=== PATIENT | male | born 1985 | race Caucasian/White ===

== ENCOUNTER 2017-08-15 08:17 | Emergency (ER) | payer MEDICAID, SELFPAY ==
[2017-08-15 08:18] VITALS: BP 127/61; PULSE 87; RESP 17; TEMP 36.6; O2SAT 98; BMI 22.0
--- NOTE | 2017-08-15 08:29 | RAD_ITS ---
STUDY: X-RAY - LEFT SHOULDER REASON FOR EXAM: Male, 31 years old. Pain TECHNIQUE: 4 view(s) of the shoulder. COMPARISON: None. FINDINGS: Normal glenohumeral articulation. Normal acromioclavicular joint. Normal acromion. Normal humeral head and visualized proximal humerus. The soft tissue structures are unremarkable. Normal visualized pulmonary apex. RAD/Shoulder min 2 Views IMPRESSION: Normal x-ray examination of the shoulder. Electronically Signed: Gabino Mancilla DO at 9:01 EDT , Service support ,
[2017-08-15] MEDS: Ketorolac 60 MG/2 ML Vial IM (08:34)
--- NOTE | 2017-08-15 08:35 | ED.VISSUMM ---
- ER Visit Summary Date of Service: 08/15/17 Chief Complaint: Left shoulder pain History of Present Illness: The patient is a 31 M presenting with left shoulder pain. He states that his shoulder has been hurting for the past week. He states yesterday while mowing the lawn he felt a pop in his shoulder. He states he did not come to the hospital because he was drinking at the time. Denies other injury. He also has an itchy rash bilateral upper extremities. He was outside yesterday. Denies other complaints. Physical Examination: Vitals are stable. Patient is afebrile. Alert no acute distress. HEENT exam is unremarkable. Neck is supple. Lungs are clear and equal bilaterally. Heart is regular rate and rhythm. Abdomen is soft nontender nondistended. Extremities left shoulder diffuse tenderness with active full range of motion Skin is multiple raised erythematous lesions consistent with insect bites bilateral upper extremities No focal neurologic deficit. Remainder of exam is unremarkable. Emergency Department Course and Treatment: Patient was given Toradol IM. Left shoulder xray shows no acute process. He is advised to take Benadryl for itching and given a short course of prednisone. Advised to follow-up with Dr. Almeida champion of sustainable design for no doc. Advised return to ED for worsening complaints. Disposition: Discharge home Impression: Left shoulder pain, rash This note was generated with [employer] dictation software. It may contain incorrect words, spelling, and punctuation that were not noted in review of the chart prior to signing ED Disposition - Plan for ED Patient: Chief Complaint: Upper Extremity Injury Instructions: ED Sprain Shoulder Prescriptions: Prednisone 20 mg PO DAILY #5 tablet Referrals: Juan Jose Almeida III, MD [STAFF PHYSICIAN] - Care Physician,No Primary [Primary Care Provider] -
--- NOTE | 2017-08-15 08:39 | ED.DCSUM_ITS ---
- ER Visit Summary Date of Service: 08/15/17 Chief Complaint: Left shoulder pain History of Present Illness: The patient is a 31 M presenting with left shoulder pain. He states that his shoulder has been hurting for the past week. He states yesterday while mowing the lawn he felt a pop in his shoulder. He states he did not come to the hospital because he was drinking at the time. Denies other injury. He also has an itchy rash bilateral upper extremities. He was outside yesterday. Denies other complaints. Physical Examination: Vitals are stable. Patient is afebrile. Alert no acute distress. HEENT exam is unremarkable. Neck is supple. Lungs are clear and equal bilaterally. Heart is regular rate and rhythm. Abdomen is soft nontender nondistended. Extremities left shoulder diffuse tenderness with active full range of motion Skin is multiple raised erythematous lesions consistent with insect bites bilateral upper extremities No focal neurologic deficit. Remainder of exam is unremarkable. Emergency Department Course and Treatment: Patient was given Toradol IM. Left shoulder xray shows no acute process. He is advised to take Benadryl for itching and given a short course of prednisone. Advised to follow-up with Dr. Almeida metal numerical control programmer for no doc. Advised return to ED for worsening complaints. Disposition: Discharge home Impression: Left shoulder pain, rash This note was generated with [email or web address] dictation software. It may contain incorrect words, spelling, and punctuation that were not noted in review of the chart prior to signing ED Disposition - Plan for ED Patient: Chief Complaint: Upper Extremity Injury Instructions: ED Sprain Shoulder Prescriptions: Prednisone 20 mg PO DAILY #5 tablet Referrals: Juan Jose Almeida III, MD [STAFF PHYSICIAN] - Care Physician,No Primary [Primary Care Provider] -
--- NOTE | 2017-08-15 09:17 | ED.DEP ---
ED Disposition - Plan for ED Patient: Chief Complaint: Upper Extremity Injury Instructions: ED Sprain Shoulder Prescriptions: Prednisone 20 mg PO DAILY #5 tablet Referrals: Care Physician,No Primary [Primary Care Provider] - Juan Jose Almeida III, MD [STAFF PHYSICIAN] -
== END 2017-08-15 09:28 | disposition home or self-care (01) ==
PROVIDERS: Emergency Provider Emergency Medicine
DX: M25.512 Pain in left shoulder (principal); R21 Rash and other nonspecific skin eruption; Z72.0 Tobacco use; Z79.51 Long term (current) use of inhaled steroids
CPT/HCPCS: 73030; 96372; 99282

== ENCOUNTER 2017-09-15 08:07 | Emergency (ER) | payer MEDICAID, SELFPAY ==
[2017-09-15 08:08] VITALS: BP 140/94; PULSE 79; RESP 20; TEMP 36.8; O2SAT 100; BMI 21.8
--- NOTE | 2017-09-15 08:25 | CT_ITS ---
STUDY: CT ABDOMEN AND PELVIS WITH CONTRAST REASON FOR EXAM: Male, 31 years old. GI BLEED, BLACK TAR STOOL, SEVERE HEMMORHOIDS. RADIATION DOSAGE (If Supplied By Facility): CTDIvol = ( 11.22 ) mGy, DLP = ( 530.25 ) mGycm TECHNIQUE: Transaxial images were obtained from the dome of the diaphragm to the symphysis pubis with oral contrast. 100 ml of Isovue 300 contrast was administered. Sagittal and coronal images were reconstructed. Individualized dose optimization techniques were used for this CT. COMPARISON: February 02, 2016 FINDINGS: The visualized lung bases are unremarkable. The visualized portions of the heart are within normal limits. Normal liver. Normal gallbladder and extrahepatic biliary system. Normal spleen. Normal pancreas. Normal bilateral adrenal glands. Normal right kidney. Normal left kidney. Normal visualized stomach. Normal small intestine. Normal colon. The appendix is visualized and appears normal. Normal abdominal aorta. Normal inferior vena cava. Normal retroperitoneum. Normal urinary bladder. Normal abdominal wall. Normal osseous structures. CT/Abdomen/Pelvis WITH Contrast IMPRESSION: Normal enhanced CT of the abdomen and pelvis. Electronically Signed: Nia Castro MD at 11:02 EDT Tel , Service support ,
[2017-09-15 08:39] VITALS: BP 148/93; PULSE 68; RESP 18; O2SAT 100
[2017-09-15] MEDS: Ondansetron 4 MG/2 ML Vial IV (08:40)
[2017-09-15] MEDS: Morphine 4 MG/ML Syringe IV (08:42)
[2017-09-15 08:48] LABS: Absolute Lymphocyte Count 2.23 X10^3/ul (0.83-4.51); Absolute Neutrophil Count 3.8 X10^3/uL (2.0-7.7); Basophil# 0.05 X10^3/uL; Basophil% 0.7 % (0-1); Eosinophil# 0.29 X10^3/uL; Eosinophils% 4.1 % (0-5); Hematocrit 44.3 % (40-54); Hemoglobin 15.6 g/dl (13.0-16.5); Lymphocyte # 2.23 X10^3/ul (4.0); Lymphocyte % 31.3 % (19-41); Mean Corp Hgb Conc 35.2 g/gl (32-36); Mean Corpuscular Hgb 31.6 pg (27.0-32.0); Mean Corpuscular Volume 89.9 fL (80-94); Mean Platelet Vol. 10.3 fl (6.2-12.0); Monocyte% 9.8 % (0-10); Neutrophil # 3.83 X10^3/uL (2.7-7.7); Neutrophil % 53.7 % (47-70); POSITIVE COUNT NO; POSITIVE DIFFERENTIAL NO; POSITIVE MORPHOLOGY NO; Platelet Count 253 K/mm3 (150-450); RBC Distribution Width SD 38.9 fl (35.1-43.9); Red Blood Count 4.93 M/mm3 (4.6-6.2); White Blood Count 7.1 K/mm3 (4.4-11.0)
--- NOTE | 2017-09-15 08:51 | ED.RN ---
PT C/O HEAVINESS IN CHEST THAT IS NOT RESOLVING. DR BALDWIN NOTIFIED. DR BALDWIN TO THE BEDSIDE. CALLED FOR EKG
[2017-09-15 08:52] VITALS: BP 141/92; PULSE 56; RESP 15; O2SAT 98
[2017-09-15 08:54] LABS: International Normalized Ratio 0.9; Prothrombin Time (Protime)PT. 12.4 SECONDS (11.7-14.9)
[2017-09-15 09:03] LABS: ALB/GLOB Ratio 1.1 RATIO (0.9-2.4); AST(SGOT) 21 U/L (15-37); Alanine Aminotransfer ALT/SGPT 39 U/L (16-61); Albumin, Serum 3.9 g/dL (3.2-5.0); Alkaline Phosphatase 91 U/L (45-117); Anion Gap 10 (5-15); BUN 11 mg/dL (7-18); BUN/Creat Ratio 11.7 RATIO (10-20); Calcium,Total 9.3 mg/dL (8.5-10.1); Chloride 107 mmol/L (98-107); Creatinine, Serum 0.94 mg/dL (0.70-1.30); EST Glomerular Filtration Rate 99 mL/min (>60); Est Glom Filt Rate - Afr Amer 120 mL/min (>60); Globulin 3.4 g/dL (2.2-4.2); Glucose 99 mg/dL (74-106); Potassium 4.3 mmol/L (3.5-5.1); Protein, Total 7.3 g/dL (6.4-8.2); Sodium Level 142 mmol/L (136-145)
--- NOTE | 2017-09-15 09:03 | ED.DCSUM_ITS ---
- ER Visit Summary Date of Service: 09/15/17 Chief Complaint: Hemorrhoids History of Present Illness: The patient is a 31 M with a long-standing history of severe external and internal hemorrhoids. He states he has had these for at least 15 years. He complains of chronic diarrhea, chronic right lower quadrant pain. He states his pain is usually worse before bowel movement. He reports dark red blood per rectum associated with his hemorrhoids. He reports nausea. However he states that over the last several days his pain has become much more severe he is also had increased bleeding. He reports that he has intermittently had dark tarry stools. He states that the last episode of this was a couple of weeks ago and has not happened since that time however. He has been seen in the emergency department for his hemorrhoids but has never followed up as an outpatient. He has never seen a reforestation worker or general surgeon. He does not have a primary care physician currently. He states that his pain is so bad that he has to drink myself to sleep. Physical Examination: Afebrile vitals unremarkable he is afebrile with a normal heart rate Moist mucous membranes Heart regular rate and rhythm Lungs clear Abdomen soft nondistended he does have right lower quadrant abdominal tenderness without guarding or rebound Severe external hemorrhoids are noted, he does have a pad with some bright red blood on it he was not able to tolerate digital rectal exam Test Results: EKG shows normal sinus rhythm at a rate of 53. CBC CMP INR all normal. CT of the abdomen and pelvis is normal. Emergency Department Course and Treatment: The patient reported right lower quadrant abdominal pain as well as intermittent melanotic stools. Although he has not had any report of melena for 2 weeks I explained that I would not expect the symptoms from hemorrhoids and hemorrhoids would not explain right lower quadrant pain. Therefore CT of the abdomen and pelvis was obtained which is normal. Patient was treated with IV morphine and Zofran. Patient is resting comfortably on reevaluation. He will be referred to general surgery for outpatient follow-up for his hemorrhoids. He was given a prescription for Anusol. He understands return for new or worsening symptoms and was instructed on specific signs and symptoms to monitor for. Patient discharged home in good condition. Treatment Plan: [] Disposition: Discharge Impression: Right lower quadrant abdominal pain Hemorrhoids This note was generated with [employer] software. It may contain incorrect words, spelling, and punctuation that were not noted in review of the chart prior to signing ED Disposition - Plan for ED Patient: Chief Complaint: GI Bleed Referrals: Care Physician,No Primary [Primary Care Provider] -
--- NOTE | 2017-09-15 09:03 | EKG12_ITS ---
Test Reason : GI BLEED Blood Pressure : / mmHG Vent. Rate : 053 BPM Atrial Rate : 053 BPM P-R Int : 130 ms QRS Dur : 108 ms QT Int : 434 ms P-R-T Axes : 051 020 056 degrees QTc Int : 407 ms Sinus bradycardia Otherwise normal ECG Confirmed by LUKAS PALACIOS, MONIK ([id number]), newspaper photo editor LAUREN LAWTON ([id number]) on 09/16/2017 4:54:05 PM Referred By: DENNY Confirmed By:MONIK GAYTAN MD
[2017-09-15 10:51] VITALS: BP 123/79; PULSE 57; RESP 18; O2SAT 98
--- NOTE | 2017-09-15 11:17 | ED.DEP ---
ED Disposition - Plan for ED Patient: Chief Complaint: GI Bleed Instructions: ED Hemorrhoids, ED Hematochezia Stable, ED Abdominal Pain Unkn Cause Prescriptions: Hydrocortisone [Anusol Hc] 25 mg RECTAL BID PRN #20 suppos. Referrals: Care Physician,No Primary [Primary Care Provider] - Rupali Preciado MD [STAFF PHYSICIAN] -
[2017-09-15 11:36] VITALS: BP 124/79; PULSE 67; RESP 14; O2SAT 100
--- NOTE | 2017-09-15 11:37 | ED.RN ---
THIS NURSE ATTEMPTED TO REVIEW D/C INSTRUCTIONS WITH PT. PT BEGAN YELLING AT THIS NURSE. PT STATES YOU MAY WELL THROW THAT PRESCRIPTION AWAY. I HAVE PAIN. HOW THE HELL DO YOU EXPECT ME TO GIVE MYSELF A SUPPOSITORY. THIS NURSE ATTEMPTED TO EXPLAIN TO THE PT THAT HE NEEDS TO FOLLOW UP WITH THE SURGEON SUGGESTED. PT CONTINUES TO YELL AT THIS NURSE. THE VISITOR IN THE ROOM STATES I WILL TAKE THE INSTRUCTIONS AND PRESCRIPTIONS. PT ENCOURAGED TO FOLLOWUP WITH THIS ISSUE IT CANNOT BE FIXED IN THE EMERGENCY DEPARTMENT. PT IV D/C. IV CATHETER INTACT. PT TOLERATED WELL. PT DENIES FURTHER NEEDS OR QUESTIONS AT THIS TIME. PT AMBULATES FROM ROOM ON OWN WITHOUT ASSISTANCE FROM STAFF
== END 2017-09-15 11:40 | disposition home or self-care (01) ==
LOC: ED 08:25
PROVIDERS: Emergency Provider Emergency Medicine
DX: K64.4 Residual hemorrhoidal skin tags (principal); R10.31 Right lower quadrant pain
CPT/HCPCS: 74177; 80053; 85025; 85610; 93005; 96374; 96375; 99283; Q9967; A4216; J2405

== ENCOUNTER 2018-03-29 08:47 | Emergency (ER) | payer MEDICAID, SELFPAY ==
[2018-03-29 08:47] VITALS: BP 140/82; PULSE 78; RESP 18; TEMP 36.6; O2SAT 99; BMI 20.3
--- NOTE | 2018-03-29 09:24 | RAD_ITS ---
STUDY: X-RAY CHEST REASON FOR EXAM: Male, 32 years old. Cough and congestion with shortness of breath. History of asthma. TECHNIQUE: Frontal and lateral views of the chest. COMPARISON: None. FINDINGS: The lungs are clear and expanded. There is no demonstrated pleural abnormality. Normal size heart. Normal mediastinum and chhaya. Normal visualized pulmonary arteries. Normal visualized aortic arch and descending thoracic aorta. Normal visualized thoracic spine. Normal visualized ribs, clavicles, and shoulders. There is no demonstrated abnormality of the visualized soft tissue structures of the upper abdomen. RAD/Chest PA and Lateral IMPRESSION: No active or acute cardiopulmonary disease. Electronically Signed: German Calle MD at 11:06 EST , Service support ,
[2018-03-29] MEDS: predniSONE 20 MG Tablet 60 MG PO (09:33)
[2018-03-29] MEDS: Ipratropium/Albuterol Sulfate 3 ML AMPUL.NEB INHALATION (09:34)
[2018-03-29] MEDS: Albuterol 2.5 MG/3 ML VIAL.NEB. INHALATION ×2 (09:34)
[2018-03-29 09:35] VITALS: PULSE 83; RESP 18
--- NOTE | 2018-03-29 10:14 | ED.VISSUMM ---
- ER Visit Summary Date of Service: 03/29/18 Chief Complaint: Shortness of breath History of Present Illness: The patient is a 32 M who states he has history of asthma for the past 2 weeks has had nausea vomiting as well as a cough. States he feels like he has been hit by a train. He notes chills rhinorrhea myalgias headache cough no sputum production. He also notes that he has left lower anterior chest is painful with coughing. Physical Examination: Afebrile vital signs are stable Gen: Well-nourished well-developed Head: Normocephalic atraumatic Eyes: Perrl EOMI ENT: TMs clear nasal congestion moist mucous membranes Neck: Supple no lymphadenopathy no JVD nontender CVS: Regular rate rhythm no murmurs normal S1-S2 Respiratory: No distress rhonchi that improved with cough. Expiratory wheeze. Chest nontender Abdomen: Soft nontender nondistended normal bowel sounds no masses Back: Nontender Extremity: Nontender no edema Skin: Normal color no rash Neuro: alert orientated ?3 CN II-XII intact normal strength sensation reflexes gait cerebellar Psych: Normal affect normal mood Test Results: Chest x-ray showed no infiltrative changes Emergency Department Course and Treatment: Patient received breathing treatment. He will need to be started on prednisone. His albuterol aerosols are I will write for those. He has an MDI. Impression: 1. Acute asthmatic bronchitis This note was generated with [employer] dictation software. It may contain incorrect words, spelling, and punctuation that were not noted in review of the chart prior to signing ED Disposition - Plan for ED Patient: Disposition: Home or Assisted Living Chief Complaint: Asthma Instructions: ED Bronchitis Asthmatic Prescriptions: Albuterol Aerosols [Ventolin Aerosols] 2.5 mg INHALATION Q4H PRN #25 vial Prednisone [Deltasone] 40 mg PO DAILY #10 tab Referrals: Cristin Scott MD [STAFF PHYSICIAN] -
[2018-03-29 11:23] VITALS: BP 138/78; PULSE 82; RESP 18; TEMP 36.6; O2SAT 96
[2018-03-29 11:37] VITALS: BP 140/78; PULSE 82; RESP 18; O2SAT 97
== END 2018-03-29 11:38 | disposition home or self-care (01) ==
PROVIDERS: Emergency Provider Emergency Medicine
DX: J45.909 Unspecified asthma, uncomplicated (principal); G40.909 Epilepsy, unspecified, not intractable, without status epilepticus; F20.9 Schizophrenia, unspecified; Z79.899 Other long term (current) drug therapy
CPT/HCPCS: 71046; 94640; 99283

== ENCOUNTER 2018-09-11 08:24 | Emergency (ER) | payer MEDICAID, SELFPAY ==
[2018-09-11 08:25] VITALS: BP 128/94; PULSE 81; RESP 18; TEMP 36.6; O2SAT 99; BMI 22.4
--- NOTE | 2018-09-11 09:03 | ED.DCSUM_ITS ---
History of Present Illness Chief Complaint: GI Bleed Informant: Patient, Family Onset: Days Context: Gradual Onset Timing: Continuous Quality: burning Location: epigastric Current Severity: Severe Maximum Severity: Severe Worsened by: food Relieved by: nothing Associated Symptoms: BRB per rectum, history of hemorrhoids Narrative: Patient presents to the emergency department with about a week epigastric abdominal pain that he describes as burning. It is nonradiating. He has been nauseated without vomiting. He has been having bright red blood per rectum but states his hemorrhoids are actively bleeding he has not had any melena. He has not had any vomiting. He has no fevers chills lightheadedness or dizziness. No chest pain or shortness of breath. He does drink 6-12 beers per day chronically. He has a history of epilepsy. He has never had a withdrawal seizure from alcohol. He has had hemorrhoids chronically and has been referred to surgery multiple times but has never followed up to be seen by surgery. Denies constipation. Prior similar symptoms: Yes Recent Illness/Hospitalization: No Capacity - Capacity Assessment Tool Can the patient make a choice & communicate that choice?: Yes Can the patient understand benefits, risks and alternatives?: Yes Can the patient make a logical, rational choice?: Yes Past Medical History - Allergies and Home Meds Allergies/Adverse Reactions: Allergies clindamycin Allergy (Verified 09/11/18 08:30) Rash morphine Allergy (Verified 09/11/18 08:30) Unknown BRADYCARDIA Penicillins Allergy (Verified 09/11/18 08:30) Rash tramadol Allergy (Verified 09/11/18 08:30) Rash Iodinated Contrast- Oral and IV Dye [CONTRASTS] Adverse Reaction (Verified 09/11/18 08:30) Diarrhea GI BLEED NSAIDS (Non-Steroidal Anti-Inflamma Adverse Reaction (Verified 09/11/18 08:30) Diarrhea red dye Adverse Reaction (Verified 09/11/18 08:30) Diarrhea Primary Care Physician: Care Physician,No Primary [Primary Care Provider] - Prior records reviewed: Yes Surgical History: noncontributory Lives: With Family Smoking Status: Current every day smoker Alcohol: Heavy Drugs: Marijuana Review of Systems All systems negative except as indicated Gastrointestinal: Reports: Abdominal pain, Nausea, Hematochezia Physical Exam Vital Signs/Narrative: Vital Signs Temp Pulse Resp BP Pulse Ox 09/11/18 08:25 97.9 F 81 18 128/94 H 99 General: Well nourished, Well developed, No Acute Distress Head: Normocephalic, Atraumatic Eyes: Perrl, EOMI ENT: Moist mucous membranes Neck: Supple, Nontender Cardiovascular: Regular rate, Regular rhythm Respiratory: No distress, CTA bilaterally, Chest nontender Abdomen: Soft, Nontender, Nondistended, Normal bowel sounds, No masses Rectal: Nontender Back: Nontender Extremities: Nontender Skin: Normal color, No rash Neurological: Alert, Oriented x3 Psychological: Normal affect Diagnostic/Tx/Re-eval - Medical Decision Making On exam the patient has nonthrombosed external hemorrhoids and he is not actively bleeding. Pain treated with oral Tylenol. Patient's laboratory work- up was unremarkable. His hemoglobin was 15. At this time he is hemodynamically stable. Discussed with patient the importance of following up as an outpatient with surgery for management of his chronic hemorrhoids but at this time there is no acute intervention indicated. Will prescribe Anusol as well as ibuprofen he will follow-up with general surgery as directed or he will return to the emergency department for worsening symptoms which we discussed. ED Disposition - Plan for ED Patient: Disposition: Home or Assisted Living Diagnosis: Abdominal pain in male, Acute hemorrhoid Instructions: ED Hemorrhoids Prescriptions: Hydrocortisone Acetate Cream [Anusol Hc] 1 applic RECTAL BID PRN PRN #1 tube PRN Reason: Rectal Discomfort Ibuprofen 400 mg PO 4X/DAY PRN #20 tablet PRN Reason: Pain Referrals: Care Physician,No Primary [Primary Care Provider] - Jt Leblanc MD [STAFF PHYSICIAN] -
[2018-09-11 09:04] LABS: Absolute Lymphocyte Count 2.24 X10^3/ul (0.83-4.51); Absolute Neutrophil Count 4.6 X10^3/uL (2.0-7.7); Basophil# 0.04 X10^3/uL; Basophil% 0.5 % (0-1); Eosinophil# 0.17 X10^3/uL; Eosinophils% 2.2 % (0-5); Hematocrit 43.9 % (40-54); Hemoglobin 15.4 g/dl (13.0-16.5); Lymphocyte # 2.24 X10^3/ul (4.0); Lymphocyte % 28.4 % (19-41); Mean Corp Hgb Conc 35.1 g/gl (32-36); Mean Corpuscular Hgb 31.3 pg (27.0-32.0); Mean Corpuscular Volume 89.2 fL (80-94); Mean Platelet Vol. 10.4 fl (6.2-12.0); Monocyte# 0.78 X10^3/uL; Monocyte% 9.9 % (0-10); Neutrophil # 4.64 X10^3/uL (2.7-7.7); Neutrophil % 58.9 % (47-70); Platelet Count 269 K/mm3 (150-450); RBC Distribution Width CV 12.8 % (11.6-14.6); RBC Distribution Width SD 41.4 fl (35.1-43.9); Red Blood Count 4.92 M/mm3 (4.6-6.2); White Blood Count 7.9 K/mm3 (4.4-11.0)
[2018-09-11 09:05] LABS: POSITIVE COUNT NO; POSITIVE DIFFERENTIAL NO; POSITIVE MORPHOLOGY NO
[2018-09-11 09:17] LABS: ALB/GLOB Ratio 1.1 RATIO (0.9-2.4); AST(SGOT) 15 U/L (15-37); Alanine Aminotransfer ALT/SGPT 31 U/L (16-61); Albumin, Serum 4.3 g/dL (3.2-5.0); Alkaline Phosphatase 72 U/L (45-117); Anion Gap 6 (5-15); BUN 11 mg/dL (7-18); BUN/Creat Ratio 10.9 RATIO (10-20); Calcium,Total 9.4 mg/dL (8.5-10.1); Chloride 106 mmol/L (98-107); Creatinine, Serum 1.01 mg/dL (0.70-1.30); EST Glomerular Filtration Rate 91 mL/min (>60); Est Glom Filt Rate - Afr Amer 110 mL/min (>60); Estimated Creatinine Clearance 111.15 ml/min; Glucose 89 mg/dL (74-106); Lipase 104 U/L (73-393); Protein, Total 8.3 g/dL (6.4-8.2); Sodium Level 137 mmol/L (136-145)
[2018-09-11] MEDS: Acetaminophen 325 MG Tablet 650 MG PO (10:56)
[2018-09-11 10:57] VITALS: BP 124/79; PULSE 71; RESP 16; O2SAT 97
== END 2018-09-11 10:58 | disposition home or self-care (01) ==
PROVIDERS: Emergency Provider Physician Assistant Medical
DX: K64.4 Residual hemorrhoidal skin tags (principal); R10.9 Unspecified abdominal pain; G40.909 Epilepsy, unspecified, not intractable, without status epilepticus; F17.200 Nicotine dependence, unspecified, uncomplicated; Z79.899 Other long term (current) drug therapy
CPT/HCPCS: 80053; 83690; 85025; 99284; A4216

== ENCOUNTER → 2018-11-23 | Outpatient (CLI) | payer MEDICAID, SELFPAY ==
--- NOTE | 2018-11-23 10:02 | NEURO ---
NCS and/or EMG Patient Report Ordering Doctor: Aleyda Huber DATE OF SERVICE: 11/23/18 This is a bilateral upper extremity nerve conduction study in her right upper extremity EMG performed on this 33-year-old male with numbness and weakness in his hands for several years more so on the right side. He says he has had some musculoskeletal injuries including several tendons in his right hand but he also describes numbness in both hands worse on the right side. Bilateral upper extremity sensory and motor nerve conduction studies were performed demonstrating normal median motor and sensory, ulnar motor and sensory and radial sensory responses. The median ulnar F-wave latencies are normal bilaterally. Right upper extremity needle electromyography was performed. The test is limited by increased effort. There is no atrophy of muscles tested. Muscles evaluated included the first dorsal osseous, abductor pollicis brevis, brachioradialis, biceps, triceps and deltoid muscles. In the hand, insertional activity is normal, recruitment is limited and is effort dependent but electrical activity appears normal. More proximally all other muscles demonstrate normal insertional activity with absence of pathologic spontaneous activity. Motor unit potential recruitment pattern and amplitude is normal in all muscles tested. Impression: This is a normal electrophysiologic study of the upper extremities limited to some degree by decreased effort
--- NOTE | 2018-11-23 10:05 | NEURO ---
NCS and/or EMG Patient Report Ordering Doctor: Mae Bean DATE OF SERVICE: 11/23/18 This is a bilateral lower extremity nerve conduction study performed on this 67-year-old male who is had an 8-year history of [id number] sensation in his feet which is been progressively worse. He did receive chemotherapy 7 years ago and 3 months ago suffered a stroke. No history of diabetes or significant alcohol intake. Bilateral lower extremity sensory and motor nerve conduction studies demonstrate very mild decrease in conduction velocities diffusely. Distal latencies and amplitudes of the motor responses from the bilateral common peroneal nerves and tibial nerves are normal. The sural sensory responses are normal. F-wave latencies from the tibial and common near peroneal nerves bilaterally are normal and the tibial H reflex responses are slightly reduced in amplitude bilaterally. The patient deferred EMG testing. 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 Symptoms may be consistent more so with small fiber neuropathy. Other testing could include serum and urine protein electrophoresis, liver function tests, and B12 level to evaluate for treatable causes of neuropathy.
== END | disposition home or self-care (01) ==
LOC: PSN 07:31
PROVIDERS: Family Provider Physician Assistant; PCP Physician Assistant; Referring Provider Physician Assistant; Visit Provider Physician Assistant
DX: R20.0 Anesthesia of skin (principal); R20.2 Paresthesia of skin; R29.898 Other symptoms and signs involving the musculoskeletal system
CPT/HCPCS: 95886; 95912

== ENCOUNTER 2018-11-24 06:16 | Emergency (ER) | payer MEDICAID, SELFPAY ==
[2018-11-24 06:17] VITALS: BP 137/70; PULSE 94; RESP 28; TEMP 36.6; O2SAT 99; BMI 25.9
[2018-11-24 06:25] LABS: Bedside Glucose 120 mg/dL (70-110)
--- NOTE | 2018-11-24 06:31 | ED.DCSUM_ITS ---
- ER Visit Summary Date of Service: 11/24/18 Chief Complaint: Abdominal pain History of Present Illness: The patient is a 33 M who states that for the past 4 days he has been experiencing constellation of symptoms. He notes that he has been sweating. He has a suprapubic pain, dysuria, weakness, nausea and vomiting, stuttering, and tremor. Denies any fever. He does note he has been taking Tylenol. He states that he feels the urge to have a bowel movement he goes and sits down but only his hemorrhoids flareup and he does not have a bowel movement. He is concerned about constipation. No history of diverticulitis or colitis. Nothing is new this morning with his symptoms as compared to 4 days ago but he finally agreed to be brought to the emergency department. He denies that he is withdrawing from anything. He denies taking any drugs or alcohol on a regular basis. He states that he recently started Keppra about 1 week ago. He states that for seizures. Physical Examination: Afebrile vital signs stable Gen: Well-nourished well-developed Head: Normocephalic atraumatic Eyes: Perrl EOMI ENT: TMs clear no rhinorrhea moist mucous membranes Neck: Supple no lymphadenopathy no JVD nontender CVS: Regular rate rhythm no murmurs normal S1-S2 Respiratory: No distress clear to auscultation bilaterally chest nontender Abdomen: Soft diffusely tender to palpation nondistended normal bowel sounds no masses Back: Nontender Extremity: Nontender no edema Skin: Normal color no rash sweaty Neuro: alert orientated ?3 CN II-XII intact normal strength sensation patient has a tremor both at rest and with activity. He stutters and consistently Psych: Normal affect normal mood Test Results: [] Emergency Department Course and Treatment: [] Impression: [] This note was generated with [employer] software. It may contain incorrect words, spelling, and punctuation that were not noted in review of the chart prior to signing ED Disposition - Plan for ED Patient: Referrals: Aleyda Huber PA [Primary Care Provider] -
[2018-11-24] MEDS: 0.9% Normal Saline 1,000 ML 1000 ML IV (06:36)
[2018-11-24] MEDS: Ondansetron 4 MG/2 ML Vial IV (06:37)
[2018-11-24 06:44] LABS: Absolute Lymphocyte Count 2.68 X10^3/uL (0.83-4.51); Absolute Neutrophil Count 3.8 X10^3/uL (2.0-7.7); Basophil# 0.05 X10^3/uL; Basophil% 0.7 % (0-1); Eosinophil# 0.17 X10^3/uL; Eosinophils% 2.3 % (0-5); Hematocrit 47.2 % (40-54); Hemoglobin 16.6 g/dL (13.0-16.5); Lymphocyte # 2.68 X10^3/ul (4.0); Lymphocyte % 35.9 % (19-41); Mean Corp Hgb Conc 35.2 g/dL (32-36); Mean Corpuscular Hgb 30.7 pg (27.0-32.0); Mean Corpuscular Volume 87.2 fL (80-94); Monocyte# 0.77 X10^3/uL; Monocyte% 10.3 % (0-10); NRBC Flagged by Analyzer 0 % (0-5); Neutrophil # 3.77 X10^3/uL (2.7-7.7); Neutrophil % 50.5 % (47-70); Platelet Count 301 K/mm3 (150-450); RBC Distribution Width CV 11.6 % (11.6-14.6); RBC Distribution Width SD 37.3 fl (35.1-43.9); Red Blood Count 5.41 M/mm3 (4.6-6.2); White Blood Count 7.5 K/mm3 (4.4-11.0)
--- NOTE | 2018-11-24 06:52 | CT_ITS ---
HISTORY: ABD PAIN, GERD,SWEATING, COPD, ASTHMA, EPILEPSY ADDITIONAL HISTORY: None provided. TECHNIQUE: CT images were obtained of the abdomen and pelvis without IV contrast. Enteric contrast was not given. Number of images including paperwork: [id number]. A radiation dose optimization technique was used for this scan. COMPARISON: None FINDINGS: Evaluation of the abdominopelvic organs is limited in the absence of contrast. LOWER THORAX: No consolidation or pleural effusion. Dependent atelectasis. LIVER: No concerning focal lesion. GALLBLADDER: No radiopaque calculi. BILE DUCTS: No significant biliary dilatation. SPLEEN: Unremarkable. PANCREAS: Unremarkable. ADRENAL GLANDS: Unremarkable. KIDNEYS/URETERS: Unremarkable. BOWEL: No bowel obstruction. No significant bowel wall thickening. No localized inflammation. APPENDIX: Normal. FREE FLUID: No significant free fluid. FREE AIR: None. LYMPH NODES: No pathologic appearing adenopathy. PERITONEUM, RETROPERITONEUM AND MESENTERY: Otherwise unremarkable. VASCULATURE: Unremarkable as imaged. ABDOMINAL WALL: Unremarkable. PELVIS: Distended bladder. OSSEOUS AND SOFT TISSUE STRUCTURES: No acute skeletal findings. CT/Abdomen/Pelvis without Cont IMPRESSION: No acute abdominopelvic abnormality. Individualized dose optimization techniques were used for this CT. at 0747 Reported and signed by: Judy Wolf MD Electronically Signed: Judy Wolf MD at 7:46 EDT Tel , Service support ,
[2018-11-24 06:59] LABS: AST(SGOT) 22 U/L (15-37); Alanine Aminotransfer ALT/SGPT 45 U/L (16-61); Albumin, Serum 4.7 g/dL (3.2-5.0); Alkaline Phosphatase 79 U/L (45-117); Anion Gap 9 (5-15); BUN 13 mg/dL (7-18); BUN/Creat Ratio 11.1 RATIO (10-20); Bilirubin, Direct 0.15 mg/dL (0.00-0.30); Calcium,Total 9.9 mg/dL (8.5-10.1); Chloride 107 mmol/L (98-107); Creatinine, Serum 1.17 mg/dL (0.70-1.30); EST Glomerular Filtration Rate 76 mL/min (>60); Est Glom Filt Rate - Afr Amer 92 mL/min (>60); Estimated Creatinine Clearance 92.72 ml/min; Globulin 4.1 g/dL (2.2-4.2); Glucose 107 mg/dL (74-106); Lipase 93 U/L (73-393); Potassium 3.9 mmol/L (3.5-5.1); Protein, Total 8.8 g/dL (6.4-8.2); Sodium Level 138 mmol/L (136-145)
[2018-11-24 07:13] LABS: Lactic Acid 1.9 mmol/L (0.4-2.0)
--- NOTE | 2018-11-24 07:16 | ED.RN ---
PER PT SO, PT HAS HAD 5 STARING SEIZURES IN THE LAST [address] HAYS. PT ALERT AND ORIENTED,TALKING AND ANSWERING QUESTIONS.
[2018-11-24 07:21] LABS: Alcohol, Blood (Medical)-Serum < 3.0 mg/dL
[2018-11-24 07:45] LABS: Mucous, Urine 0 SEEN /hpf (<or=2+); Red Blood Cells-Urine 0 SEEN /hpf (0-5); Squamous Epithelial Cells - UA 0 SEEN /hpf (0-5); White Blood Cells 0 SEEN /hpf (0-5)
[2018-11-24 07:47] LABS: Color, Urine Yellow (Yellow); Glucose, Dipstick Normal (Normal); Ketone-Dipstick Negative (Negative); Leukocyte Esterase-Dipstick Negative /ul (Negative); Nitrite-Dipstick Negative (Negative); Occult Blood-Urine Negative /ul (Negative); Protein-Dipstick Negative (Negative); Urine Bilirubin Dipstick Negative (Negative); Urine Clarity Sl. Cloudy (Clear); Urine Urobilinogen Normal (Normal)
[2018-11-24] MEDS: 0.9% Normal Saline 1,000 ML 150 ML IV (07:47)
[2018-11-24 07:55] LABS: Bacteria RARE /hpf (None Seen)
[2018-11-24 08:05] LABS: Amphetamine Urine VISTA NEGATIVE (<1000 ng/mL); Barbiturate Urine VISTA NEGATIVE (< 200 ng/mL); Benzodiazepine Urine VISTA NEGATIVE (< 200 ng/mL); Cocaine Urine VISTA NEGATIVE (< 300 ng/mL); Ecstacy Urine VISTA NEGATIVE (< 500 ng/mL); Methadone Urine VISTA NEGATIVE (< 300 ng/mL); PCP Urine VISTA NEGATIVE (< 25 ng/mL); THC Urine VISTA POSITIVE (< 50 ng/mL); Vista UDS pH Range 7
--- NOTE | 2018-11-24 08:23 | ED.DEP ---
ED Disposition - Plan for ED Patient: Disposition: Home or Assisted Living Diagnosis: Abdominal pain Instructions: ABDOMINAL PAIN, Unkown Cause, (Male) Prescriptions: hydrOXYzine pamoate capsule [Vistaril] 50 mg PO TID PRN PRN #30 cap PRN Reason: Insomnia Prescription Printed Referrals: Aleyda Huber PA [Primary Care Provider] - 3-5 Days
[2018-11-24] MEDS: levETIRAcetam 1,000 MG Tablet 1000 MG PO (08:43)
[2018-11-24 08:50] VITALS: BP 140/88; PULSE 62; RESP 16; O2SAT 99
== END 2018-11-24 08:52 | disposition home or self-care (01) ==
PROVIDERS: Emergency Medicine; Emergency Provider Emergency Medicine; Family Provider Physician Assistant; PCP Physician Assistant
DX: R10.84 Generalized abdominal pain (principal); R56.9 Unspecified convulsions; Z72.0 Tobacco use; Z79.899 Other long term (current) drug therapy
CPT/HCPCS: 74176; 80048; 80076; 80307; 80320; 81001; 82962; 83605; 83690; 85025; 96361; 96374; 99284; J7030; A4216; G0480; J2405

== ENCOUNTER 2018-11-25 15:22 | Emergency (ER) | payer MEDICAID, SELFPAY ==
[2018-11-24 06:17] VITALS: BMI 25.9
[2018-11-25 15:22] VITALS: BP 124/91; PULSE 84; RESP 16; TEMP 36.1; O2SAT 95; BMI 23.6
--- NOTE | 2018-11-25 15:26 | RAD_ITS ---
STUDY: X-RAY - RIGHT HAND REASON FOR EXAM: Punching injury of fifth metacarpal, laceration. TECHNIQUE: 3 view(s) of the hand. COMPARISON: Radiographs 04/24/2017. FINDINGS: Normal radiocarpal articulation. Normal distal radioulnar joint. Normal visualized carpal bones. Normal carpal articulations Normal carpometacarpal articulation of the thumb. Normal second through fifth carpometacarpal joints. There is an acute fracture of the distal fifth metacarpal diaphysis with palmar angulation. There is chronic healed fracture deformity of the second metacarpal head. There is chronic healed fracture deformity of the proximal third metacarpal. Normal metacarpophalangeal joint of the thumb. Normal interphalangeal joint of the thumb. Normal proximal and distal phalanges of the thumb. Normal metacarpophalangeal joints of the second through fifth fingers. Normal proximal and distal interphalangeal joints of the second through fifth fingers. Normal phalanges of the second through fifth fingers. There is soft tissue swelling. RAD/Hand Min 3 Views IMPRESSION: Acute fifth metacarpal fracture. Electronically Signed: Antoni Quispe MD at 15:48 EDT Tel , Service support ,
--- NOTE | 2018-11-25 17:15 | ED.RN ---
ATTEMPTED TO HAVE PT SOAK HAND IN NORMAL SALINE AND IODINE MIXTURE PER REQUEST FROM DR. IRIZARRY. PT STATES HE IS ALLERGIC TO IODINE AND STATES THIS IS WHY I DON'T COME TO THIS HOSPITAL. IODINE ADDED TO PT'S ALLERGY LIST. PT'S HAND SOAKED IN CHLORHEXADINE AND NORMAL SALINE SOLUTION PER REQUEST FROM DR. IRIZARRY. PT REMAINS FRUSTRATED BUT COOPERATIVE AT THIS TIME.
--- NOTE | 2018-11-25 17:20 | ED.RN ---
PT CUSSING STATING I COULD'VE TAKEN CARE OF THIS AT HOME IN THE TIME THAT I'VE BEEN WAITING. EXPLAINED TO PT THAT DR. IRIZARRY WILL APPLY SPLINT AFTER AREA IS CLEANSED IN NORMAL SALINE AND CHLORHEXADINE SOLUTION. PT DOES NOT VERBALIZE UNDERSTANDING AND STATES YOU SHOULD'VE PUT RUBBING ALCOHOL ON IT. ADVISED PT THAT IT IS NOT RECOMMENDED TO APPLY RUBBING ALCOHOL TO OPEN WOUND. PT DOES NOT VERBALIZE UNDERSTANDING AND STATES I USED TO BE AN [employer] AND WAS ALWAYS TOLD THAT'S WHAT YOU PUT ON IT.
--- NOTE | 2018-11-25 17:21 | ED.VISSUMM ---
- ER Visit Summary Date of Service: 11/25/18 Chief Complaint: Right hand pain History of Present Illness: The patient is a 33 M who has right hand pain. He punched a steel beam today. Pain is worse with movement. He has multiple previous fractures to this hand. He took nothing for this at home. Physical Examination: Vital signs reviewed. Right hand exam reveals tenderness and swelling to the fifth metacarpal area. There is a small puncture wound noted over this area. There is a deformity. Test Results: Right hand x-ray reveals 5th metacarpal fracture Emergency Department Course and Treatment: I discussed this with Dr. Reynolds regarding the small puncture wound. He recommended cleansing the area with Betadine and rinsing it thoroughly. The patient is allergic to iodine so I did this with chlorhexidine. His hand was washed and soaked with saline mixed with chlorhexidine. I then used chlorhexidine on the skin and applied a nonadherent dressing. He was then placed in an ulnar gutter splint. I then gave him [employer] and Bactrim for antibiotic prophylaxis as he is allergic to penicillins and clindamycin. The patient will follow-up with Dr. Reynolds on Thursday Treatment Plan: [] Disposition: Discharge Impression: [Open right fifth metacarpal fracture This note was generated with [employer] dictation software. It may contain incorrect words, spelling, and punctuation that were not noted in review of the chart prior to signing ED Disposition - Plan for ED Patient: Referrals: Aleyda Huber PA [Primary Care Provider] -
--- NOTE | 2018-11-25 17:24 | DCINST.ED_ITS ---
ED Disposition - Plan for ED Patient: Disposition: Home or Assisted Living Instructions: FRACTURE, Hand (Open) Prescriptions: Smz/Tmp Ds [Bactrim Ds] 1 tab PO BID #14 tab Prescription Printed Hydrocodone Bitart/Apap 5-325 [[place] 5MG-325MG] 1 tab PO Q6H PRN PRN 3 Days #10 tab PRN Reason: Pain Prescription Printed Referrals: Aleyda Huber PA [Primary Care Provider] - Darien Reynolds MD [STAFF PHYSICIAN] - Additional Instructions: Call Dr. Reynolds's office for a follow up on Thursday
[2018-11-25] MEDS: Smz/Tmp Ds Tablet 1 TABLET PO (17:30)
[2018-11-25 17:33] VITALS: RESP 16
[2018-11-25] MEDS: HYDROcodone Bitartrate/Apap 5/325 Tablet PO (17:33)
--- NOTE | 2018-11-25 17:34 | ED.RN ---
PT STATES HE IS ALLERGIC TO NORCO AND CANNOT TAKE IT THEN STATES ACTUALLY I CAN I'M NOT REALLY ALLERGIC. NORCO ADMINISTERED PER ORDER. PT CONTINUES TO DENY ALLERGY. REVIEWED D/C INSTRUCTIONS, FOLLOW UP CARE, PRESCRIPTIONS, AND S/S THAT WOULD WARRANT A RETURN TO THE ED WITH PT. PT VERBALIZED AN UNDERSTANDING AND DENIES FURTHER QUESTIONS FOR THIS RN. PT SKIN P/W/D, RESP EVEN AND UNLABORED, PT A&O X 3, NO DISTRESS NOTED. PT AMBULATED OUT OF ED, GAIT STEADY.
== END 2018-11-25 17:40 | disposition home or self-care (01) ==
PROVIDERS: Emergency Provider Emergency Medicine; Family Provider Physician Assistant; PCP Physician Assistant
DX: S62.396B Other fracture of fifth metacarpal bone, right hand, initial encounter for open fracture (principal); R56.9 Unspecified convulsions; Z79.899 Other long term (current) drug therapy; W22.09XA Striking against other stationary object, initial encounter; Y93.89 Activity, other specified; Y92.89 Other specified places as the place of occurrence of the external cause; Y99.8 Other external cause status
CPT/HCPCS: 73130; 99283

== ENCOUNTER 2019-01-29 14:15 | Emergency (ER) | payer MEDICAID, SELFPAY ==
[2019-01-29 14:15] VITALS: BP 122/98; PULSE 81; RESP 16; TEMP 36.2; O2SAT 100; BMI 22.7
--- NOTE | 2019-01-29 14:19 | RAD_ITS ---
STUDY: X-RAY - RIGHT HAND REASON FOR EXAM: Male, 33 years old. Trauma. Pain. TECHNIQUE: Three view(s) of the hand. COMPARISON: November 25, 2018 FINDINGS: Bones: Deformity of the head of the second metacarpal unchanged. Acute fracture of the head of the fifth metacarpal with dorsal angulation and volar displacement of the distal fragment at the fracture site. Joints: Osteoarthritic changes. Soft tissues: The soft tissues are unremarkable. Foreign body: None RAD/Hand Min 3 Views IMPRESSION: Fifth metacarpal fracture as described. Electronically Signed: German Calle MD at 14:53 EDT , Service support ,
--- NOTE | 2019-01-29 14:28 | ED.DCSUM_ITS ---
- ER Visit Summary Date of Service: 01/29/19 Chief Complaint: Right hand pain History of Present Illness: The patient is a 33 M M.with a prior right hand fracture. Patient states when he had a casted a few months ago when he broke it he was getting a lot of fleabites did not want to wear the cast so he took it off. The cast was only on about a week. That is done well but today he is walking his dog jerked the leash pulling on his right hand causing immediate pain at the site of the prior fracture. No other injuries. Physical Examination: Young male no acute distress vital signs stable afebrile. HEENT exam unremarkable atraumatic. Neck nontender. Lungs clear to auscultati on. Heart regular rhythm no murmur. Abdomen soft nontender. Extremities moves all 4. Neurovascular intact. Right wrist nontender full range of motion right elbow and shoulder nontender. Right hand pain on palpation to the right small finger metacarpal in the midportion. His hands neurovascular intact. Skin is intact. He has full flexion-extension all digits of the hand. He can open and close his hand to make a fist. Normal touch sensation normal cap refill. Test Results: Right hand x-ray 3 views shows small finger or fifth metacarpal fracture that is old and not completely healed. Again the patient only had his cast on at that time the original fracture in late November for about a week. Emergency Department Course and Treatment: Right hand short arm ulnar gutter splint placed by ER. Treatment Plan: Follow-up with Dr. Groves of orthopedics. Ice and elevate. Tylenol Motrin for pain. Disposition: Discharge Impression: Acute right hand small finger metacarpal recurrent fracture History of prior noncompliance This note was generated with [employer] dictation software. It may contain incorrect words, spelling, and punctuation that were not noted in review of the chart prior to signing ED Disposition - Plan for ED Patient: Referrals: Aleyda Huber PA [NON-STAFF] -
--- NOTE | 2019-01-29 14:54 | ED.DEP ---
ED Disposition - Plan for ED Patient: Disposition: Home or Assisted Living Instructions: FRACTURE, Hand (Closed) Referrals: Jun Groves DO [STAFF PHYSICIAN] - As soon as possible Additional Instructions: Keep splint on and keep the splint dry and clean. Ice and elevate. Follow-up with orthopedic doctor Tylenol and Motrin for pain
== END 2019-01-29 15:12 | disposition home or self-care (01) ==
PROVIDERS: Emergency Provider Emergency Medicine; Family Provider Family Medicine; PCP Family Medicine
DX: S62.396A Other fracture of fifth metacarpal bone, right hand, initial encounter for closed fracture (principal); Z91.19 Patient's noncompliance with other medical treatment and regimen; J45.909 Unspecified asthma, uncomplicated; X50.1XXA Overexertion from prolonged static or awkward postures, initial encounter; Y93.K1 Activity, walking an animal; Y92.89 Other specified places as the place of occurrence of the external cause; Y99.8 Other external cause status
CPT/HCPCS: 73130; 99282

== ENCOUNTER 2019-03-19 13:14 | Emergency (ER) | payer MEDICAID, SELFPAY ==
[2019-03-19 13:14] VITALS: BP 117/77; PULSE 119; PULSE 121; RESP 16; RESP 18; TEMP 36.4; O2SAT 100; BMI 22.3
--- NOTE | 2019-03-19 13:38 | ED.VIS.GEN ---
History of Present Illness Chief Complaint: Seizure Informant: Patient, Significant Other Onset: Today Context: Sudden Onset Timing: Intermittent Narrative: Patient is a 33-year-old male with history of seizure disorder, bipolar disorder presenting with seizure activity. Per significant other patient had 6-7 episodes of all over body shaking. Lasted for couple minutes and then would resolve until told her episode would start. This all occurred over the last hour. Patient not having episodes of incontinence, fall or hurt himself or bite his tongue. She states this is consistent with his prior seizure episodes. Because of the amount of blood she brought him to the emergency room. Patient follows with Dr. Rios neurology. He is on Keppra for his seizures. They told me that Dr. Rios thinks things are nonepileptic form seizures. Past Medical History - Allergies and Home Meds Allergies/Adverse Reactions: Allergies chocolate flavor Allergy (Verified 01/29/19 14:16) Swelling clindamycin Allergy (Verified 01/29/19 14:16) Rash iodine Allergy (Verified 01/29/19 14:16) Other morphine Allergy (Verified 01/29/19 14:16) Unknown BRADYCARDIA Penicillins Allergy (Verified 01/29/19 14:16) Rash Sulfa (Sulfonamide Antibiotics) Allergy (Verified 01/29/19 14:16) Rash tramadol Allergy (Verified 01/29/19 14:16) Rash Iodinated Contrast Media [CONTRASTS] Adverse Reaction (Verified 01/29/19 14:16) Diarrhea GI BLEED red dye Adverse Reaction (Verified 01/29/19 14:16) Diarrhea Primary Care Physician: Sen Ventura MD [Primary Care Provider] - Past Medical History: - - Bipolar disorder, seizure disorder Surgical History: noncontributory Smoking Status: Current every day smoker Review of Systems General: Denies: Chills, Fever, Sweats Eyes: Denies: Visual changes - bilaterally, Diplopia ENT: Denies: Rhinorrhea, Sore throat Cardiovascular: Denies: Chest pain, Palpitations Respiratory: Denies: Dyspnea, Cough, Dyspnea on exertion Gastrointestinal: Denies: Abdominal pain, Nausea, Vomiting, Diarrhea, Melena, Hematochezia Genitourinary: Denies: Dysuria, Hematuria, Frequency Musculoskeletal: Denies: Back pain, Extremity Pain Skin: Denies: Rash, Wounds Neurological: Reports: - - Seizure activity. Denies: Headache, Weakness, Numbness Physical Exam Vital Signs/Narrative: Vital Signs Temp Pulse Resp BP Pulse Ox 03/19/19 13:14 97.6 F L 119 H 18 117/77 100 Inital Vital Signs reviewed: Yes General: Well nourished, Well developed, No Acute Distress Head: Normocephalic, Atraumatic Eyes: Perrl, EOMI, - - Bilateral horizontal fatiguing nystagmus ENT: Moist mucous membranes, No rhinorrhea, - - No tongue lesions Neck: Supple, Nontender Cardiovascular: Regular rate, Regular rhythm, No murmurs Respiratory: No distress, CTA bilaterally, Chest nontender Abdomen: Soft, Nontender, Nondistended, Normal bowel sounds Back: Nontender, Normal Inspection Extremities: Nontender, No edema Skin: Normal color, No rash Neurological: Alert, Oriented x3, Cranial nerves II-XII grossly intact, Normal Strength, Normal Sensation Psychological: Normal Mood, Agitated Diagnostic/Tx/Re-eval Laboratory Data 03/19/19 03/19/19 03/19/19 13:21 13:21 13:21 WBC 12.2 H RBC 4.00 L Hgb 11.6 L Hct 34.8 L MCV 87.0 MCH 29.0 MCHC 33.3 RDW Std Deviation 38.8 RDW Coeff of Mable 12.0 Plt Count 663 H MPV 9.1 Immature Gran % (Auto) 0.500 Neut % (Auto) 69.7 Lymph % (Auto) 22.2 Daggett % (Auto) 5.1 Eos % (Auto) 2.0 Baso % (Auto) 0.5 Absolute Neuts (auto) 8.5 H Absolute Lymphs (auto) 2.71 Nucleated RBC % 0 Sodium 137 Potassium 3.7 Chloride 107 Carbon Dioxide 25.0 Anion Gap 5 BUN 6 L Creatinine 1.04 Estim Creat Clear Calc 100.74 Est GFR (MDRD) Af Amer 106 Est GFR (MDRD) Non-Af 87 BUN/Creatinine Ratio 5.8 L Glucose 90 Calcium 8.7 Ethyl Alcohol 83.0 - Medical Decision Making Patient is evaluated for breakthrough seizure. Initially he is tachycardic but otherwise appears nontoxic. He does not have any seizure-like activity in the emergency room. He did not require any benzodiazepines or antiepileptics in the emergency room. Additionally patient is not speaking but his family member states that is normal for him after seizure. He has otherwise normal neurologic exam. Patient does become more vocal and agitated state he hates hospitals and wants to leave. CBC and BMP are largely unremarkable. He not have elevated anion gap or significant leukocytosis which is often seen after a significant seizure activity. In addition patient did not have any urinary incontinence or injuries to his tongue. His family member states that he is been told these are nonepileptic seizures and I question whether he had a true grand mal seizure at home. Regardless patient will continue to take his Keppra. I do think he is stable for discharge at this time. He has returned to his baseline and had no further seizures while in the emergency room. Patient is counseled on signs and symptoms requiring return to the emergency room. Patient verbalizes agreement and understand this plan. Patient discharged home in stable and improved condition. ED Disposition - Plan for ED Patient: Disposition: Home or Assisted Living Diagnosis: Breakthrough seizure Instructions: SEIZURE, Recurrent [Adult] Referrals: Sen Ventura MD [Primary Care Provider] - Additional Instructions: Please follow-up with your neurologist next week. Call the office on Thursday. Return to emergency room if you have recurrent seizures.
[2019-03-19 14:05] LABS: Absolute Lymphocyte Count 2.71 X10^3/uL (0.83-4.51); Absolute Neutrophil Count 8.5 X10^3/uL (2.0-7.7); Basophil# 0.06 X10^3/uL; Basophil% 0.5 % (0-1); Eosinophil# 0.25 X10^3/uL; Hematocrit 34.8 % (40-54); Hemoglobin 11.6 g/dL (13.0-16.5); Lymphocyte # 2.71 X10^3/ul (4.0); Lymphocyte % 22.2 % (19-41); Mean Corp Hgb Conc 33.3 g/dL (32-36); Mean Platelet Vol. 9.1 fl (6.2-12.0); Monocyte# 0.62 X10^3/uL; Monocyte% 5.1 % (0-10); NRBC Flagged by Analyzer 0 % (0-5); Neutrophil # 8.51 X10^3/uL (2.7-7.7); Neutrophil % 69.7 % (47-70); Platelet Count 663 K/mm3 (150-450); RBC Distribution Width SD 38.8 fl (35.1-43.9); White Blood Count 12.2 K/mm3 (4.4-11.0)
[2019-03-19 14:27] LABS: Anion Gap 5 (5-15); BUN 6 mg/dL (7-18); BUN/Creat Ratio 5.8 RATIO (10-20); Calcium,Total 8.7 mg/dL (8.5-10.1); Chloride 107 mmol/L (98-107); Creatinine, Serum 1.04 mg/dL (0.70-1.30); EST Glomerular Filtration Rate 87 mL/min (>60); Est Glom Filt Rate - Afr Amer 106 mL/min (>60); Estimated Creatinine Clearance 100.74 ml/min; Glucose 90 mg/dL (74-106); Potassium 3.7 mmol/L (3.5-5.1); Sodium Level 137 mmol/L (136-145)
[2019-03-19 15:34] VITALS: BP 115/84
== END 2019-03-19 15:35 | disposition home or self-care (01) ==
PROVIDERS: Emergency Provider Emergency Medicine; Family Provider Family Medicine; PCP Family Medicine
DX: G40.909 Epilepsy, unspecified, not intractable, without status epilepticus (principal); F31.9 Bipolar disorder, unspecified; Z79.899 Other long term (current) drug therapy; F17.200 Nicotine dependence, unspecified, uncomplicated
CPT/HCPCS: 80048; 80320; 85025; 99283; A4216; G0480

== ENCOUNTER → 2019-04-18 09:35 | Outpatient (CLI) | payer MEDICAID, SELFPAY ==
[2019-03-19 13:14] VITALS: BMI 22.3
--- NOTE | 2019-04-18 09:38 | CDU_ITS ---
Reason For Study: BLACKOUT Rt. Velocities/BP Lt. Velocities/BP Prox CCA 127/28 cm/sec. Prox CCA 127/33 cm/sec. Mid CCA 138/39 cm/sec. Mid CCA 131/33 cm/sec. Dist CCA 116/41 cm/sec. Dist CCA 99/33 cm/sec. Prox ICA 87/29 cm/sec. Prox ICA 63/28 cm/sec. Mid ICA 72/34 cm/sec. Mid ICA 85/42 cm/sec. Dist ICA 65/29 cm/sec. Dist ICA 72/31 cm/sec. Rt. ICA/CCA = .6. Lt. ICA/CCA = .6. Prox ECA 59/22 cm/sec. Lt. Vert. 50/15 cm/sec. Right Extracranial There is intimal thickening but no significant atherosclerotic plaque noted in the right common carotid artery. There is intimal thickening but no significant atherosclerotic plaque noted in the right internal carotid artery. There is intimal thickening but no significant atherosclerotic plaque noted in the right external carotid artery. Antegrade flow is noted in the right vertebral artery. Left Extracranial There is intimal thickening but no significant atherosclerotic plaque noted in the left common carotid artery. There is intimal thickening but no significant atherosclerotic plaque noted in the left internal carotid artery. There is intimal thickening but no significant atherosclerotic plaque noted in the left external carotid artery. Antegrade flow is noted in the left vertebral artery. Procedure Carotid Duplex [id number]. Exam performed in department. Interpretation Summary No hemodynamically significant plaque or stenosis bilateral extracranial internal carotids with less than 50% stenosis bilateral internal carotids Less than 50% stenosis bilateral external carotids Patent and antegrade vertebrals bilaterally Ordering Physician: Kurtis Rios Referring Physician: CLARISSE GREENE Performed By: Maya Prince, RDCS, RVT
--- NOTE | 2019-04-18 10:13 | MRI_ITS ---
STUDY: MRI BRAIN WITH AND WITHOUT CONTRAST REASON FOR EXAM: Male, 33 years old. EPILEPSY, on meds, last seizure approx 2 mos ago TECHNIQUE: Standardized multiplanar fat and water weighted pulse sequences were obtained. Dotarem IV 15ml was administered for the contrast portion of the examination. COMPARISON: None. FINDINGS: Normal size of the ventricles and extra-axial spaces for the patient''s age. Normal white matter tracts of the supratentorial brain. There is no evidence for recent intracranial ischemia or other cause of cytotoxic edema on diffusion weighted imaging (DWI). Normal T2* images of the brain without demonstrated susceptibility artifact. There is no demonstrated hemosiderin stain. There are no demyelinating plagues of the supratentorial brain, brainstem or cerebellum. There are no findings suspicious for multiple sclerosis (MS). No demonstrated hydrocephalus. No midline shift. Normal bilateral basal ganglia. Normal thalami. There is no extra-axial fluid accumulation. Normal flow voids within the major intracranial circulation suggesting patency by spin echo criteria. Normal venous enhancement. There is no enhancing intra-axial or extra-axial abnormality. Normal sella turcica, pituitary gland, infundibular stalk, optic chiasm and hypothalamus. Normal tectal plate and pineal gland. Normal midbrain, mary and medulla. Normal cerebellum. Normal basal cisterns. Normal bilateral temporal bones. Normal bilateral internal auditory canals. No demonstrated orbital abnormality, within the constraints of a routine brain study. Normal visualized paranasal sinuses. Normal calvarium and skull base. Normal visualized soft tissue structures. Normal visualized upper cervical spine. MRI/Brain W/WO Contrast IMPRESSION: Negative unenhanced and enhanced MRI of the brain. Electronically Signed: Joo Terrell MD at 18:12 EST , Service support ,
== END ==
PROVIDERS: Family Provider Family Medicine; PCP Family Medicine; Referring Provider Psychiatry & Neurology Neurology; Visit Provider Psychiatry & Neurology Neurology
DX: G40.909 Epilepsy, unspecified, not intractable, without status epilepticus (principal); R55 Syncope and collapse
CPT/HCPCS: 70553; 93880; A9575

== ENCOUNTER 2019-05-17 08:14 | Emergency (ER) | payer MEDICAID, SELFPAY ==
[2019-05-17 08:15] VITALS: BP 147/93; PULSE 88; RESP 16; TEMP 36.4; O2SAT 100; BMI 24.0
--- NOTE | 2019-05-17 08:28 | ED.DCSUM_ITS ---
- ER Visit Summary Date of Service: 05/17/19 Chief Complaint: Right hand small finger metacarpal injury. History of Present Illness: The patient is a 33 M 3 of seizure disorder, vertigo and neuropathy. Patient uses a cane to walk. He was going outside today. Before he could make it outside his house he lost his balance fell injuring his right hand. He is previously broken this hand and specifically this metacarpal before. He has never needed surgery. He denies punching anything. He denies any other injuries. Does not have a headache. No neck pain. Physical Examination: Well-appearing young male. Vital signs are stable afebrile. H EENT exam pupils are reactive light. No signs of trauma to his face or scalp. Nontender. C-spine nontender. Trachea midline. Normal range of motion. Lungs clear to auscultation bilaterally. Heart regular rhythm no murmur. Chest wall nontender. Abdomen soft nontender. Back nontender. Spine nontender. Patient moving all 4 extremities. Left upper and both lower extremities are nontender with normal range of motion. The right shoulder, elbow and wrist are all nontender nonswollen. With normal range of motion. The right hand he has swelling and tenderness along the distal third dorsum of the small metacarpal. He has decreased flexion of the small finger the pinky due to a prior injury to the tendons. That is not new today. Skin is intact. Test Results: Right hand x-ray 3 views read by myself shows an angulated, midshaft right small metacarpal fracture. Appears to be through an old fracture site that had callused over. I discussed and showed the patient his x-rays. He follows up with [facility] in the past. Emergency Department Course and Treatment: Patient given Jackson for pain. Concern is that he has a small finger metacarpal fracture. Treatment Plan: Ice and elevate. Keep splint dry and clean. Follow-up with orthopedics. Disposition: Discharge Impression: Acute right hand small finger metacarpal fracture Ulnar gutter short arm splint by ER (Kevin) This note was generated with [employer] software. It may contain incorrect words, spelling, and punctuation that were not noted in review of the chart prior to signing ED Disposition - Plan for ED Patient: Disposition: Home or Assisted Living Instructions: FRACTURE, Hand (Closed) Prescriptions: Hydrocodone Bitart/Apap 5-325 [[place] 5MG-325MG] 1 - 2 tab PO Q4H PRN PRN 4 Days #14 tab PRN Reason: Pain Prescription Printed Referrals: Darien Reynolds MD [STAFF PHYSICIAN] - As soon as possible Additional Instructions: Ice and elevate. Motrin and limited [place] for pain. Follow-up with orthopedic doctor.
--- NOTE | 2019-05-17 08:30 | RAD_ITS ---
STUDY: X-RAY - RIGHT HAND REASON FOR EXAM: Male, 33 years old. PAIN AND DEFORMITY 5TH METACARPAL. S/P FALL. TECHNIQUE: 3 view(s) of the hand. COMPARISON: Comparison is made with prior examination dated January 30, 2000. FINDINGS: Normal radiocarpal articulation. Normal distal radioulnar joint. Normal visualized carpal bones. Normal carpal articulations Normal carpometacarpal articulation of the thumb. Normal second through fifth carpometacarpal joints. There is evidence of a new fracture on an old boxer type fracture of the midshaft of the fifth metacarpal with mild dorsal angulation and overlying soft tissue swelling. Normal metacarpophalangeal joint of the thumb. Normal interphalangeal joint of the thumb. Normal proximal and distal phalanges of the thumb. Normal metacarpophalangeal joints of the second through fifth fingers. Normal proximal and distal interphalangeal joints of the second through fifth fingers. Normal phalanges of the second through fifth fingers. Soft tissue swelling. RAD/Hand Min 3 Views IMPRESSION: New transverse fracture through the midshaft of the fifth metacarpal at the prior fracture site with overlying soft tissue swelling. Electronically Signed: John Colón, at 9:00 EST , Service support ,
--- NOTE | 2019-05-17 08:31 | DCINST.ED_ITS ---
ED Disposition - Plan for ED Patient: Disposition: Home or Assisted Living Instructions: FRACTURE, Hand (Closed) Prescriptions: Hydrocodone Bitart/Apap 5-325 [[place] 5MG-325MG] 1 - 2 tab PO Q4H PRN PRN 4 Days #14 tab PRN Reason: Pain Prescription Printed Referrals: Darien Reynolds MD [STAFF PHYSICIAN] - As soon as possible Additional Instructions: Ice and elevate. Motrin and limited [place] for pain. Follow-up with orthopedic doctor.
[2019-05-17] MEDS: HYDROcodone Bitartrate/Apap 5/325 Tablet PO (08:41)
== END 2019-05-17 09:11 | disposition home or self-care (01) ==
LOC: ED 08:57
PROVIDERS: Emergency Provider Emergency Medicine; PCP Family Medicine
DX: S62.356A Nondisplaced fracture of shaft of fifth metacarpal bone, right hand, initial encounter for closed fracture (principal); G40.909 Epilepsy, unspecified, not intractable, without status epilepticus; R42 Dizziness and giddiness; W18.30XA Fall on same level, unspecified, initial encounter; Z72.0 Tobacco use
CPT/HCPCS: 29126; 73130; 99283

== ENCOUNTER 2019-05-25 12:11 | Day surgery (SDC) | payer MEDICAID, SELFPAY ==
--- NOTE | 2019-05-23 01:57 | HP_ITS ---
Intake Vital Signs 05/23/19 Height 5 ft 10 in 05/23/19 Weight: 170 lb 05/23/19 BMI 24.3 Intake Visit Reasons: hand Accompanied by: Is patient in pain?: Yes Pain scale (1-10): 10 Allergies chocolate flavor Allergy (Verified 05/17/19 08:18) Swelling clindamycin Allergy (Verified 05/17/19 08:18) Rash iodine Allergy (Verified 05/17/19 08:18) Other morphine Allergy (Verified 05/17/19 08:18) Unknown Penicillins Allergy (Verified 05/17/19 08:18) Rash Sulfa (Sulfonamide Antibiotics) Allergy (Verified 05/17/19 08:18) Rash tramadol Allergy (Verified 05/17/19 08:18) Rash Iodinated Contrast Media [CONTRASTS] Adverse Reaction (Verified 05/17/19 08:18) Diarrhea red dye Adverse Reaction (Verified 05/17/19 08:18) Diarrhea Medications Levetiracetam [Keppra] 1,000 mg PO BREAKFAST 11/24/18 [History Confirmed 05/23/19] Levetiracetam [Keppra] 1,500 mg PO QHS 03/19/19 [History Confirmed 05/23/19] Meclizine HCl [Antivert] 25 mg PO TID PRN PRN 03/19/19 [History Confirmed 05/23/19] Quetiapine Fumarate [Seroquel] 400 - 800 mg PO QHS 05/17/19 [History Confirmed 05/23/19] docusate sodium 100 mg capsule PO 05/23/19 [History Confirmed 05/23/19] hydrocodone 5 mg-acetaminophen 325 mg tablet PO 05/23/19 [History Confirmed 05/23/19] ibuprofen 800 mg tablet PO 05/23/19 [History Confirmed 05/23/19] [facility] Medical History (Updated 05/23/19 @ 09:18 by Martha Mcdowell) Alcoholism (Acute) History of head injury (Acute) Hx of dizziness (Acute) Marijuana use (Acute) Neuropathy (Acute) Seizures (Acute) Surgical History (Updated 09/11/18 @ 10:27 by AUSTIN Yancey) History cyst removed left face (Acute) History of tonsillectomy (Acute) History evert left femur (Acute) history steel plate inserted in skull (Acute) Social History (Updated 05/23/19 @ 13:57 by AUSTIN Ariza) Smoking Status: Current every day smoker alcohol intake: current alcohol intake frequency: 3 or more drinks per day Alcohol type: beer substance use type: marijuana HPI hand: Surgical H&P: Yes Details: Parts of this documentation were recorded by a scribe, this documentation accurately reflects the service provided and the decisions made by me, AUSTIN Ariza 05/23/19 0901. RICARDO LIU is a 33 year old M NEW patient here today for right hand fx. Patient states that he injured his right hand on 05/17/2019 he states that he blacked and came to and his hand was broken. He states that he has numbness of his 4th and 5th fingers. States that he is also having shooting pain of his right hand. He has been taking [place] and ibuprofen for the pain, he states that the [place] is useless for his pain. He smokes 1/2 pack a day of cigarettes and uses marijuana. Ulnar gutter splint is intact. ROS Musc Reports joint pain, Reports joint swelling, Reports numbness, Reports radiating pain into limb, Reports stiffness, Reports tingling Skin/Breast Denies redness, Denies lesions, Denies itching, Denies rash, Denies skin swelling Neuro Yes numbness, Yes tingling Ortho Exam Right Wrist/Hand Skin/Wound: Yes Swelling, No Ecchymosis, Yes nail intact Right Wrist: Yes ROM-Extension 0-60, ROM-Flexion 0-80 and TTP Fracture site WRIST: Patient is some minor generalized swelling on inspection of the right fourth and fifth digits as well as the hand. There is very minimal if any ecchymosis noted. Patient does have intact sensation at the same time patient does have limited movement of the fifth digit. Patient does not have active flexion at the DIP or the PIP joint currently. At this time he shows minimal if any signs of extension at these joints either. Patient has normal distal radial pulses and capillary refill. Left Wrist/Hand Skin/Wound: Yes Swelling, No Ecchymosis Assessment & Plan Problems 1. Closed displaced fracture of shaft of fifth metacarpal bone of right hand, initial encounter S62.326A Plan Patient presents the office for follow-up of fifth metacarpal fracture. We did review patient's images showing midshaft fracture with some displacement and angulation. We discussed that this amount of change really requires surgical fixation at this time. We did discuss patient's lack of movement of the fifth digit. He states that he had a laceration to the flexor tendon many years ago and has had limited function of the DIP and PIP joint (mainly flexion but some minor extension decreased as well). We discussed risks and benefits of the procedure and all of patient's and his 's questions were answered to their satisfaction. At this time patient would like to proceed with surgical fixation of the fracture. Consent was signed in office today. Patient was given antimicrobial cleanse to be used the night before the morning of surgery. Patient be contacted by surgery the day before to notify him of the time of surgery. Patient to notify our office if he has any other questions in the meantime. Patient is able to ice this and continue to keep elevated. Notify of any increased pain, increased pain, numbness or tingling, or any other signs or symptoms. This note was generated with [employer] dictation software. It may contain incorrect words, spelling, and punctuation that were not noted in checking the note before signing. Coding Level of Care Code Off vis,new,level 3 Diagnoses Closed displaced fracture of shaft of fifth metacarpal bone of right hand, initial encounter S62.326A ??Encounter type: initial encounter ??Metacarpal location: shaft ??Fracture alignment: displaced ??Laterality: right 05/23/19 6147 <Electronically signed by Pablito AVILA> Date _ Pablito AVILA
[2019-05-23 09:05] VITALS: BMI 24.3
[2019-05-25] VITALS (11 sets, daily range): BP systolic 92–124; BP diastolic 55–94; PULSE 60–87; RESP 16; TEMP 36.3–36.5; O2SAT 95–100; BMI 23.8
[2019-05-25] MEDS: Lactated Ringers 1,000 ML 100 ML IV (13:08)
--- NOTE | 2019-05-25 16:35 | HP.PCM_ITS ---
History and Physical I have re-examined the patient. There are no clinical changes since date of exam. Intake Vital Signs 05/23/19 Height 5 ft 10 in 05/23/19 Weight: 170 lb 05/23/19 BMI 24.3 Intake Visit Reasons: hand Accompanied by: Is patient in pain?: Yes Pain scale (1-10): 10 Allergies chocolate flavor Allergy (Verified 05/17/19 08:18) Swelling clindamycin Allergy (Verified 05/17/19 08:18) Rash iodine Allergy (Verified 05/17/19 08:18) Other morphine Allergy (Verified 05/17/19 08:18) Unknown Penicillins Allergy (Verified 05/17/19 08:18) Rash Sulfa (Sulfonamide Antibiotics) Allergy (Verified 05/17/19 08:18) Rash tramadol Allergy (Verified 05/17/19 08:18) Rash Iodinated Contrast Media [CONTRASTS] Adverse Reaction (Verified 05/17/19 08:18) Diarrhea red dye Adverse Reaction (Verified 05/17/19 08:18) Diarrhea Medications Levetiracetam [Keppra] 1,000 mg PO BREAKFAST 11/24/18 [History Confirmed 05/23/19] Levetiracetam [Keppra] 1,500 mg PO QHS 03/19/19 [History Confirmed 05/23/19] Meclizine HCl [Antivert] 25 mg PO TID PRN PRN 03/19/19 [History Confirmed 05/23/19] Quetiapine Fumarate [Seroquel] 400 - 800 mg PO QHS 05/17/19 [History Confirmed 05/23/19] docusate sodium 100 mg capsule PO 05/23/19 [History Confirmed 05/23/19] hydrocodone 5 mg-acetaminophen 325 mg tablet PO 05/23/19 [History Confirmed 05/23/19] ibuprofen 800 mg tablet PO 05/23/19 [History Confirmed 05/23/19] [facility] Medical History (Updated 05/23/19 @ 09:18 by Martha Mcdowell) Alcoholism (Acute) History of head injury (Acute) Hx of dizziness (Acute) Marijuana use (Acute) Neuropathy (Acute) Seizures (Acute) Surgical History (Updated 09/11/18 @ 10:27 by AUSTIN Yancey) History cyst removed left face (Acute) History of tonsillectomy (Acute) History evert left femur (Acute) history steel plate inserted in skull (Acute) Social History (Updated 05/23/19 @ 13:57 by AUSTIN Ariza) Smoking Status: Current every day smoker alcohol intake: current alcohol intake frequency: 3 or more drinks per day Alcohol type: beer substance use type: marijuana HPI hand: Surgical H&P: Yes Details: Parts of this documentation were recorded by a scribe, this documentation accurately reflects the service provided and the decisions made by me, AUSTIN Ariza 05/23/19 0901. RICARDO LIU is a 33 year old M NEW patient here today for right hand fx. Patient states that he injured his right hand on 05/17/2019 he states that he blacked and came to and his hand was broken. He states that he has numbness of his 4th and 5th fingers. States that he is also having shooting pain of his right hand. He has been taking [place] and ibuprofen for the pain, he states that the [place] is useless for his pain. He smokes 1/2 pack a day of cigarettes and uses marijuana. Ulnar gutter splint is intact. ROS Musc Reports joint pain, Reports joint swelling, Reports numbness, Reports radiating pain into limb, Reports stiffness, Reports tingling Skin/Breast Denies redness, Denies lesions, Denies itching, Denies rash, Denies skin swelling Neuro Yes numbness, Yes tingling Ortho Exam Right Wrist/Hand Skin/Wound: Yes Swelling, No Ecchymosis, Yes nail intact Right Wrist: Yes ROM-Extension 0-60, ROM-Flexion 0-80 and TTP Fracture site WRIST: Patient is some minor generalized swelling on inspection of the right fourth and fifth digits as well as the hand. There is very minimal if any ecchymosis noted. Patient does have intact sensation at the same time patient does have limited movement of the fifth digit. Patient does not have active flexion at the DIP or the PIP joint currently. At this time he shows minimal if any signs of extension at these joints either. Patient has normal distal radial pulses and capillary refill. Left Wrist/Hand Skin/Wound: Yes Swelling, No Ecchymosis Assessment & Plan Problems 1. Closed displaced fracture of shaft of fifth metacarpal bone of right hand, initial encounter S62.326A Plan Patient presents the office for follow-up of fifth metacarpal fracture. We did review patient's images showing midshaft fracture with some displacement and angulation. We discussed that this amount of change really requires surgical fixation at this time. We did discuss patient's lack of movement of the fifth digit. He states that he had a laceration to the flexor tendon many years ago and has had limited function of the DIP and PIP joint (mainly flexion but some minor extension decreased as well). We discussed risks and benefits of the procedure and all of patient's and his 's questions were answered to their satisfaction. At this time patient would like to proceed with surgical fixation of the fracture. Consent was signed in office today. Patient was given antimicrobial cleanse to be used the night before the morning of surgery. Patient be contacted by surgery the day before to notify him of the time of surgery. Patient to notify our office if he has any other questions in the meantime. Patient is able to ice this and continue to keep elevated. Notify of any increased pain, increased pain, numbness or tingling, or any other signs or symptoms. This note was generated with [employer] dictation software. It may contain incorrect words, spelling, and punctuation that were not noted in checking the note before signing. Coding Level of Care Code Off vis,new,level 3 Diagnoses Closed displaced fracture of shaft of fifth metacarpal bone of right hand, initial encounter S62.326A ??Encounter type: initial encounter ??Metacarpal location: shaft ??Fracture alignment: displaced ??Laterality: right
--- NOTE | 2019-05-25 16:36 | DCINST_ITS ---
Discharge Diet: No Restrictions - Leave dressing intact, follow-up with Andreas schwarz in 2 weeks Discharge Activity: May Not Drive May shower in (days): 1 Ice area for (Minutes): 20 - Every hour while awake. Weight Bearing Status: Weight bearing as tolerated Keep extremity elevated above heart level: Operative Extremity Call your doctor if your incision/area has: Continuous Slow Oozing, Sudden Increased Bleeding, Increased Pain/ Swelling, Increased Redness, Foul Smelling Discharge Call your doctor if you observe: Fever of 101 or Higher, Coldness, Increased Pain, Numbness or Tingling, Change in Color, Calf discomfort Allergies/Adverse Reactions: Allergies chocolate flavor Allergy (Verified 05/25/19 12:53) Swelling clindamycin Allergy (Verified 05/25/19 12:53) Rash iodine Allergy (Verified 05/25/19 12:53) Other morphine Allergy (Verified 05/25/19 12:53) Unknown BRADYCARDIA Penicillins Allergy (Verified 05/25/19 12:53) Rash Sulfa (Sulfonamide Antibiotics) Allergy (Verified 05/25/19 12:53) Rash tramadol Allergy (Verified 05/25/19 12:53) Rash Iodinated Contrast Media [CONTRASTS] Adverse Reaction (Verified 05/25/19 12:53) Diarrhea GI BLEED red dye Adverse Reaction (Verified 05/25/19 12:53) Diarrhea Medications to take at Discharge Levetiracetam [Keppra] 1,000 mg PO BREAKFAST 11/24/18 Levetiracetam [Keppra] 1,500 mg PO QHS 03/19/19 Meclizine HCl [Antivert] 25 mg PO TID PRN PRN 03/19/19 Quetiapine Fumarate [Seroquel] 400 - 800 mg PO QHS 05/17/19 docusate sodium 100 mg capsule 1 cap PO DAILY 05/23/19 ibuprofen 800 mg tablet 1 tab PO TID PRN PRN 05/23/19 Albuterol Inhaler [Ventolin Hfa] 1 puff IH PRN PRN 05/24/19 Oxycodone HCl/Acetaminophen [Percocet 5/325] 1 - 2 tab PO Q6H PRN PRN 5 Days #28 tab 05/25/19 The following prescriptions were given: Oxycodone HCl/Acetaminophen [Percocet 5/325] 1 - 2 tab PO Q6H PRN PRN 5 Days #28 tab PRN Reason: Pain Transmission Status: Received by [facility] [place] Primary Care Physician: Sen Ventura MD [Primary Care Provider] - Test Results: Test results from this visit will be discussed in further detail at your follow- up appointment, if applicable. Please Follow Up With: Lin Dias, - [phone]
--- NOTE | 2019-05-25 16:36 | PCM.OPRPT ---
Report of Operation Date of Procedure: 05/25/19 Pre-Operative Diagnosis: displaced right fifth metacarpal fracture Post-Operative Diagnosis: same Surgery/Procedure Performed:: orif right fifth metacarpal Type of Anesthesia:: General Anesthesiologist: Tato Wilcox Drains: tt- 55 min Estimated Blood Loss (mL): min Fluids Replaced: 1200cc lr Description of Procedure: Preop note Patient is a 33-year-old male who punched something in his right hand expensing some broken this finger in the past. Has also had issues with this moving the finger as it has damaged his flexor tendons in the past he does not have range of motion either. Patient states he will not wear a cast therefore he elected to proceed with ORIF of his right fifth metacarpal. Risk benefits and alternatives were discussed with patient. Risk include but not limited to blood loss, blood clot, infection, neurovascular, failure procedure, loss of life and loss of limb. Patient is aware like to do ORIF of his right fifth metacarpal Operative note Patient seen and examined preoperative holding area. Right he was marked. Patient brought to the operating placed supine on the operating table. Signed, anesthesia, antibiotics administered the ramus prepped and draped usual sterile fashion with tourniquet around his upper arm. All bony problems well-padded SCDs placed his bilateral lower extremity. Marked her incision for her ORIF of her metacarpal using fluoroscopy. The right arm is an elevated single and in turn was raised her pressure of 250 torr. Timeout was performed. We then use a 15 blade to cut through the skin dissect down to times the level of the fracture site. All neurovascular structures and tendons were protected at all times throughout the case. We visualized the fracture site. We debrided the fracture site with a combination of a bone pick and a [place] we then irrigated the fracture site we then reduced it we then impacted a 6-hole plate on the back table and bent it to fit his metacarpal. We then placed a screw distally to right neck the fracture site and then proximally and made and made sure it is centered on the bone and get good fixation. We then placed a locking screw distally is in the metaphyseal bone. The completed our repair using 2 more proximal to 4 screws. We then we used a 2.4 Synthes mini fragment plate. We then irrigated the incision with copious muscle sterile saline we took multiple images multiple planes we did try to exchange that 1 of the long screws for short screw however due to the fact that there was a fracture at the site and the past 1 we exchanged for shorter screw did not get good purchase on the volar aspect. Again we irrigated the incision with copious amounts of sterile saline we closed the periosteum over the bone with 3-0 Vicryl the skin subcuticular layer with 3-0 Vicryl in a running 4 Monocryl sterile dressings and a tourniquet was applied and a splint was applied to the ulnar gutter to his right hand. Tourniquet applied for total working time 55 minutes. Patient tolerated tolerate procedure well no complication transferred recovery room in stable condition Postoperative note Nonweightbearing right extremity Drug [place] has Percocet Discussed with family Follow-up in 1 week to 2 weeks with Andreas weight Call with increased pain numbness tingling or other issues arise Theresa disclaimer Grafts/Implants Used: synthes 2.0 mod hand plate/set
[2019-05-25] MEDS: Cefazolin 2 GM in 0.9% Normal Saline 100 ML IV (16:56)
--- NOTE | 2019-05-25 17:01 | RAD_ITS ---
STUDY: X-RAY - RIGHT HAND REASON FOR EXAM: Male, 33 years old. ORIF right hand, 5th metacarpal TECHNIQUE: Dose area product: 0.68 mGycm2 COMPARISON: 05/17/2019 FINDINGS: Fluoroscopic images demonstrate a fifth metacarpal fracture with subsequent realignment and placement of fifth metacarpal fixation plate and screws. RAD/Hand Min 3 Views IMPRESSION: 1. Fluoroscopic guidance for fifth metacarpal fracture fixation. Electronically Signed: Norbert Mcmillan MD ([place]) at 19:50 EST , Service support ,
[2019-05-25] MEDS: Mupirocin Ointment 22gm Tube 1 APPLIC (18:00)
[2019-05-25] MEDS: Bupivacaine Mpf 0.5% 30 ML VIAL (18:00)
--- NOTE | 2019-05-25 19:35 | SUR.PHASEI ---
192 pt given 50mcg fentanyl per order, pt went to sleep and at 192 had a mild seziure like episode that lasted 1 min. vitals stable pt stable, dr Wilcox advised. noted that pt did have a similar seizure like activity on arrival to PACU from surgery. fentanyl order reduced from 50 mcg to [address] Wilcox.
== END 2019-05-25 20:11 | disposition home or self-care (01) ==
LOC: SDC 12:11 → AC 12:13
PROVIDERS: PCP Family Medicine; Referring Provider Orthopaedic Surgery; Visit Provider Orthopaedic Surgery
PROC: (CPT 26615; principal; 2019-05-25 14:15)
DX: S62.326A Displaced fracture of shaft of fifth metacarpal bone, right hand, initial encounter for closed fracture (principal); X58.XXXA Exposure to other specified factors, initial encounter; Y93.9 Activity, unspecified; Y92.9 Unspecified place or not applicable; G62.9 Polyneuropathy, unspecified; Z79.899 Other long term (current) drug therapy; F31.9 Bipolar disorder, unspecified; G40.909 Epilepsy, unspecified, not intractable, without status epilepticus; F10.21 Alcohol dependence, in remission; F17.210 Nicotine dependence, cigarettes, uncomplicated
CPT/HCPCS: 01830; 26615; 73130; 76000; C1713; J7120; J2405

== ENCOUNTER 2019-05-29 08:22 | Emergency (ER) | payer MEDICAID, SELFPAY ==
[2019-05-25 12:55] VITALS: BMI 23.8
[2019-05-29 08:24] VITALS: BP 140/67; PULSE 105; RESP 17; TEMP 36.5; O2SAT 100; BMI 24.4
--- NOTE | 2019-05-29 08:46 | ED.VISSUMM ---
- ER Visit Summary Date of Service: 05/29/19 Chief Complaint: Patient presents with pain in his right hand. History of Present Illness: The patient is a 33 M History of right fifth metacarpal recurrent fracture with recent orthopedic plating last week by Dr. Oskar Dias. Patient complaining of more pain and swelling. And he is almost out of his pain medication. Physical Examination: Young male no acute distress vital signs stable afebrile. H EENT exam unremarkable. Lungs are clear. Heart regular rhythm. Abdomen soft. Right hand is in a well padded ulnar gutter splint. All the padding and splint material was removed. He has a surgical incision site over the dorsum of his right hand over the fifth or small metacarpal. It is healing nicely. There is mild swelling to the hand. No signs of infection no pus or redness. No streaks. No drainage or discharge. It is a well-healing incision. The forearm and upper arm are nontender nonswollen. There is no axillary lymphadenopathy. He has positive cap refill to all digits. He has sensation all digits. He is able wiggle his fingers but has more pain with movement. There is no signs of a compartment syndrome nor any infection. Test Results: None Emergency Department Course and Treatment: Patient has hand pain after hand surgery for a recurrent right fifth metacarpal fracture. There is no signs of infection. He has mild to moderate postop swelling. He just needs ice elevate more continue with ibuprofen and limit the use of his Percocet. I did explain to him that I would not write him for further narcotic prescriptions that would be per the discretion of his orthopedic physician. Treatment Plan: I rewrapped the surgical site and reapplied the ulnar gutter splint. Ice and elevate. Motrin for pain and swelling. Use his Percocet. Follow-up with his orthopedic physician. Disposition: Discharge Impression: Postop pain and swelling Status post recurrent right small finger or fifth metacarpal fracture with orthopedic repair This note was generated with [employer] dictation software. It may contain incorrect words, spelling, and punctuation that were not noted in review of the chart prior to signing ED Disposition - Plan for ED Patient: Referrals: Sen Ventura MD [Primary Care Provider] -
--- NOTE | 2019-05-29 08:48 | ED.DEP ---
ED Disposition - Plan for ED Patient: Disposition: Home or Assisted Living Referrals: Lin Dias DO [STAFF PHYSICIAN] - Keep Lauren appointment Additional Instructions: Keep splint dry and clean. Very important ice and elevate your hand to decrease pain and swelling. Ibuprofen for pain and swelling. Follow-up with Dr. Dias as needed.
[2019-05-29 08:49] VITALS: BP 140/67; PULSE 105; PULSE 89; RESP 0; RESP 16; RESP 17; TEMP 36.5; O2SAT 0; O2SAT 100; O2SAT 99
--- NOTE | 2019-05-29 08:53 | ED.RN ---
REVIEWED D/C INSTRUCTIONS, FOLLOW UP CARE, AND S/S THAT WOULD WARRANT A RETURN TO THE ED WITH PT. PT VERBALIZED AN UNDERSTANDING AND DENIES FURTHER QUESTIONS FOR THIS RN. PT SKIN P/W/D, RESP EVEN AND UNLABORED, PT A&O X 3, NO DISTRESS NOTED. PT AMBULATED OUT OF ED, GAIT STEADY.
== END 2019-05-29 08:54 | disposition home or self-care (01) ==
PROVIDERS: Emergency Provider Emergency Medicine; PCP Family Medicine
DX: G89.18 Other acute postprocedural pain (principal)
CPT/HCPCS: 99282

== ENCOUNTER → 2019-05-31 09:46 | Outpatient (CLI) | payer MEDICAID, SELFPAY ==
[2019-05-29 08:24] VITALS: BMI 24.4
--- NOTE | 2019-05-31 09:46 | RAD_ITS ---
STUDY: X-RAY - RIGHT HAND REASON FOR EXAM: Male, 33 years old. injury, pain TECHNIQUE: 3 view(s) of the hand. COMPARISON: 05/17/2019 FINDINGS: Normal radiocarpal articulation. Normal distal radioulnar joint. Normal visualized carpal bones. Normal carpal articulations Normal carpometacarpal articulation of the thumb. Normal second through fifth carpometacarpal joints. Interval open reduction internal fixation of boxer''s fracture of the fifth metacarpal bone with dorsal plate and screws. Normal metacarpophalangeal joint of the thumb. Normal interphalangeal joint of the thumb. Normal proximal and distal phalanges of the thumb. Normal metacarpophalangeal joints of the second through fifth fingers. Normal proximal and distal interphalangeal joints of the second through fifth fingers. Normal phalanges of the second through fifth fingers. The soft tissue structures are unremarkable. RAD/Hand Min 3 Views IMPRESSION: Interval open reduction internal fixation of boxer''s fracture of the fifth metacarpal bone. Electronically Signed: Jt Bermudez MD at 12:38 EST Tel , Service support ,
== END ==
PROVIDERS: PCP Family Medicine; Referring Provider Physician Assistant; Visit Provider Physician Assistant
DX: S92.353A Displaced fracture of fifth metatarsal bone, unspecified foot, initial encounter for closed fracture (principal)
CPT/HCPCS: 73130

== ENCOUNTER 2019-06-09 09:16 | Outpatient (RCR) | payer MEDICAID, SELFPAY ==
[2019-06-09 08:49] VITALS: BMI 24.4
--- NOTE | 2019-06-14 16:07 | HP.OTEVAL ---
Patient's Visit Information RICARDO LIU is a 33 year old M, referred to Occupational Therapy by AUSTIN Ariza, with a diagnosis of 5th metacarpal fx. Date of Evaluation: 06/10/19 Occupational Therapist: Che Lovell, CIRS/Yaneth, CHT - Subjective Subjective: This 33 year old male was seen for OT with dx of right 5th metacapral fx- pt states he had a fall on 05/17/19 and had sx on 05/25/19- had cast removed today but due to healing structure pt in need of custom orthosis to provide support and protection. - ROM MP: right 40* flex PIP: right 55* flex ROM Comments: left LF demo with limited ROM - Strength Strength Comments: will test strength at later date - Sensation Sensation Comments: reports sensation change around incision area - Quick DASH-Disab of Arm,Shoulder& Hand Quick DASH Score: 52.2725 - Rehabilitation General Assessment: pt s/p 2 weeks ORIF of right in need of custom orthosis to provide support and protection while pt is healing-PT demo need for skilled OT services 1x week for 2 weeks to bella.custom orthosis and provide ed.on use and care. Today therapist bella. custom orthosis to provide protection and support while fx is healing. Pt demo Ind. madhav/doff of orthosis and understanding of orthosis precautions and use. pt advised if orthosis needs adj. to increase comfort to return to therapist. pt demo understanding- it pt required cont. therapy services once orthosis is off new goals will be set. Rehabilitation Potential: Good - Anticipated Interventions Anticipated Interventions: Orthoses, Home Program Other Interventions: orthosis use - Visit Plan TEXT: Thank you for the opportunity to evaluate your patient. For Medicare and Medicare HMO plans, please review the plan of care and approve it. It will need to be FAXED BACK to us at [phone] for Medicare purposes. Please let me know if there are questions or concerns regarding this plan of care. Physician Signature: Date:
--- NOTE | 2019-08-23 15:30 | HP.OT.NRP ---
RICARDO LIU was seen in my office for initial evaluation on 06/10/19. The following Plan of Care was established for this patient: Anticipated Interventions: Orthoses, Home Program Other Interventions: orthosis use This patient was last seen in our office 06/09/19. Pertinent comments regarding their Occupational therapy will appear below: Pt was seen for OT eval for orthosis bella. Pt did not return to clinic for follow-up. Pt d/c at this time lapse in skilled therapy services. At this point I will be discontinuing this patient from occupational therapy. I would be happy to see this patient again in the future if found appropriate by the physician. Thank you! Che Lovell, OTR/L, CHT
== END 2019-06-09 19:00 | disposition home or self-care (01) ==
LOC: OT 09:16
PROVIDERS: PCP Family Medicine; Referring Provider Physician Assistant; Visit Provider Physician Assistant
DX: Z98.890 Other specified postprocedural states (principal)
CPT/HCPCS: 97165; 97760

== ENCOUNTER 2019-06-20 16:41 | Emergency (ER) | payer MEDICAID, SELFPAY ==
[2019-06-20 16:43] VITALS: BP 122/76; PULSE 80; RESP 16; TEMP 36.4; O2SAT 97; BMI 25.1
--- NOTE | 2019-06-20 16:52 | EKG12_ITS ---
Test Reason : CP/SOB Blood Pressure : / mmHG Vent. Rate : 071 BPM Atrial Rate : 071 BPM P-R Int : 146 ms QRS Dur : 100 ms QT Int : 382 ms P-R-T Axes : 044 024 056 degrees QTc Int : 415 ms Normal sinus rhythm with sinus arrhythmia Normal ECG Confirmed by JOHN PALACIOS, BORA ([id number]), news video editor MYRNA SORIA ([id number]) on 06/27/2019 11:10:45 AM Referred By: KATHIA Confirmed By:ISIDORO LOPEZ MD
--- NOTE | 2019-06-20 16:54 | ED.VIS.GEN ---
History of Present Illness Chief Complaint: Asthma Informant: Patient Onset: Days Context: Gradual Onset Timing: Continuous Current Severity: Moderate Maximum Severity: Moderate Narrative: The patient is a 33-year-old male with medical history significant for epilepsy, asthma, and recent cyst removal that presents to the emergency department with multiple complaints. Patient states that over the past 2 days, he has had worsening cough and shortness of breath. He states that he has no pain across his left chest that is made with coughing. He is unsure present fever. He states he is also been vertiginous but does have a history of vertigo. He denies orthopnea. He is unsure if he had fever. He denies any other systemic symptoms. Prior similar symptoms: No Recent Illness/Hospitalization: No Past Medical History - Allergies and Home Meds Allergies/Adverse Reactions: Allergies chocolate flavor Allergy (Verified 06/20/19 16:43) Swelling clindamycin Allergy (Verified 06/20/19 16:43) Rash iodine Allergy (Verified 06/20/19 16:43) Other morphine Allergy (Verified 06/20/19 16:43) Unknown BRADYCARDIA Penicillins Allergy (Verified 06/20/19 16:43) Rash Sulfa (Sulfonamide Antibiotics) Allergy (Verified 06/20/19 16:43) Rash tramadol Allergy (Verified 06/20/19 16:43) Rash Iodinated Contrast Media [CONTRASTS] Adverse Reaction (Verified 06/20/19 16:43) Diarrhea GI BLEED red dye Adverse Reaction (Verified 06/20/19 16:43) Diarrhea Primary Care Physician: Sen Ventura MD [Primary Care Provider] - Prior records reviewed: Yes Past Medical History: - - Asthma, seizures, bipolar Surgical History: noncontributory Smoking Status: Current every day smoker Review of Systems General: Reports: Fever Eyes: Denies: Visual changes - bilaterally, Diplopia ENT: Denies: Rhinorrhea, Sore throat Cardiovascular: Denies: Chest pain, Palpitations Respiratory: Reports: Dyspnea, Cough Gastrointestinal: Denies: Abdominal pain, Nausea, Vomiting, Diarrhea, Melena, Hematochezia Genitourinary: Denies: Dysuria, Hematuria, Frequency Musculoskeletal: Denies: Back pain, Extremity Pain Skin: Denies: Rash, Wounds Neurological: Denies: Headache, Weakness, Numbness Physical Exam Vital Signs/Narrative: Vital Signs Temp Pulse Resp BP Pulse Ox 06/20/19 16:43 97.6 F L 80 16 122/76 H 97 Inital Vital Signs reviewed: Yes General: Well nourished, Well developed, No Acute Distress Head: Normocephalic, Atraumatic Eyes: Perrl, EOMI ENT: Moist mucous membranes, No rhinorrhea Neck: Supple, Nontender Cardiovascular: Regular rate, Regular rhythm, No murmurs Respiratory: No distress, Chest nontender, Wheezing Abdomen: Soft, Nontender, Nondistended, Normal bowel sounds Back: Nontender, Normal Inspection Extremities: Nontender, No edema Skin: Normal color, No rash Neurological: Alert, Oriented x3, Cranial nerves II-XII grossly intact, Normal Strength, Normal Sensation Psychological: Normal affect, Normal Mood Diagnostic/Tx/Re-eval Clinical Impression(s) from Imaging Studies Chest X-Ray 06/20/19 18:16 IMPRESSION: Mild right lower lobe atelectasis or infiltrate. Electronically Signed: Sen Real MD at 18:55 EDT , Service support , Abnormal Lab Results 06/20/19 06/20/19 17:10 17:10 WBC 14.8 H RBC 4.77 Hgb 13.0 Hct 40.1 MCV 84.1 MCH 27.3 MCHC 32.4 RDW Std Deviation 50.2 H RDW Coeff of Mable 16.4 H Plt Count 298 MPV 10.3 Immature Gran % (Auto) 0.400 Neut % (Auto) 70.4 H Lymph % (Auto) 20.3 [place] % (Auto) 7.0 Eos % (Auto) 1.3 Baso % (Auto) 0.6 Absolute Neuts (auto) 10.4 H Absolute Lymphs (auto) 3.00 Nucleated RBC % 0 Sodium 140 Potassium 3.7 Chloride 108 H Carbon Dioxide 26.0 Anion Gap 6 BUN 22 H Creatinine 1.03 Estim Creat Clear Calc 105.33 Est GFR (MDRD) Af Amer 107 Est GFR (MDRD) Non-Af 88 BUN/Creatinine Ratio 21.4 H Glucose 100 Calcium 8.7 Troponin I < 0.015 - Medical Decision Making Patient is a 33-year-old male with history of asthma the presents to the emergency department with cough, dyspnea, fevers, and chills. Metabolic work-up was pursued. Influenza testing was negative. The patient was given nebulized breathing treatments with improvement of aeration. He is not hypoxic or tachypneic. He is afebrile here. His x-ray does show a scant right middle lobe pneumonia. At this point, I do feel the patient is safe for outpatient therapy. He will be treated with prednisone, albuterol, and Zithromax. He was counseled on concerning symptoms and reasons to return. He will be discharged home. Impression 1. Community-acquired pneumonia ED Disposition - Plan for ED Patient: Instructions: PNEUMONIA (Adult) Prescriptions: Prednisone [Deltasone] 40 mg PO DAILY #10 tab Prescription Printed Albuterol Inhaler [Ventolin Hfa] 2 puff INHALATION Q4H PRN PRN #1 inhaler PRN Reason: Wheezing Prescription Printed Azithromycin [Zithromax Z-Flakito] 250 mg PO UD #1 box Prescription Printed Referrals: Sen Ventura MD [Primary Care Provider] -
[2019-06-20 17:14] VITALS: BP 122/76; PULSE 80; RESP 16; TEMP 36.4; O2SAT 97
[2019-06-20 17:19] LABS: Absolute Neutrophil Count 10.4 X10^3/uL (2.0-7.7); Basophil# 0.09 X10^3/uL; Basophil% 0.6 % (0-1); Eosinophil# 0.19 X10^3/uL; Eosinophils% 1.3 % (0-5); Hematocrit 40.1 % (40-54); Lymphocyte % 20.3 % (19-41); Mean Corp Hgb Conc 32.4 g/dL (32-36); Mean Corpuscular Hgb 27.3 pg (27.0-32.0); Mean Corpuscular Volume 84.1 fL (80-94); Mean Platelet Vol. 10.3 fl (6.2-12.0); Monocyte# 1.04 X10^3/uL; NRBC Flagged by Analyzer 0 % (0-5); Neutrophil # 10.38 X10^3/uL (2.7-7.7); Neutrophil % 70.4 % (47-70); Platelet Count 298 K/mm3 (150-450); RBC Distribution Width CV 16.4 % (11.6-14.6); RBC Distribution Width SD 50.2 fl (35.1-43.9); Red Blood Count 4.77 M/mm3 (4.6-6.2); White Blood Count 14.8 K/mm3 (4.4-11.0)
[2019-06-20 17:20] VITALS: O2SAT 98
[2019-06-20] MEDS: 0.9% Normal Saline 1,000 ML 150 ML IV (17:26)
[2019-06-20 17:30] VITALS: PULSE 75; RESP 16; RESP 18; O2SAT 98
[2019-06-20] MEDS: Ipratropium/Albuterol Sulfate 3 ML AMPUL.NEB INHALATION (17:30)
[2019-06-20 17:37] LABS: Anion Gap 6 (5-15); BUN 22 mg/dL (7-18); BUN/Creat Ratio 21.4 RATIO (10-20); Calcium,Total 8.7 mg/dL (8.5-10.1); Chloride 108 mmol/L (98-107); Creatinine, Serum 1.03 mg/dL (0.70-1.30); EST Glomerular Filtration Rate 88 mL/min (>60); Est Glom Filt Rate - Afr Amer 107 mL/min (>60); Estimated Creatinine Clearance 105.33 ml/min; Glucose 100 mg/dL (74-106); Potassium 3.7 mmol/L (3.5-5.1); Sodium Level 140 mmol/L (136-145)
[2019-06-20] MEDS: Albuterol 2.5 MG/3 ML VIAL.NEB. INHALATION (17:40)
--- NOTE | 2019-06-20 18:16 | RAD_ITS ---
STUDY: X-RAY CHEST REASON FOR EXAM: Male, 33 years old. SOB, HX ASTHMA, DIZZINESS, WEAKNESS TECHNIQUE: PA and lateral COMPARISON: March 29, 2018. FINDINGS: There is right lower lobe atelectasis or infiltrate. There is no demonstrated pleural abnormality. Normal size heart. Normal mediastinum and chhaya. Normal visualized pulmonary arteries. Normal visualized aortic arch and descending thoracic aorta. Normal visualized thoracic spine. Normal visualized ribs, clavicles, and shoulders. There is no demonstrated abnormality of the visualized soft tissue structures of the upper abdomen. RAD/Chest PA and Lateral IMPRESSION: Mild right lower lobe atelectasis or infiltrate. Electronically Signed: Sen Real MD at 18:55 EDT , Service support ,
[2019-06-20 18:41] VITALS: BP 118/73; PULSE 80; RESP 18; TEMP 36.6; O2SAT 98
[2019-06-20 19:10] VITALS: BP 130/69; PULSE 70; RESP 16; TEMP 36.6; O2SAT 97
== END 2019-06-20 19:13 | disposition home or self-care (01) ==
LOC: ED 17:21
PROVIDERS: Emergency Provider Emergency Medicine; PCP Family Medicine
DX: J18.9 Pneumonia, unspecified organism (principal); J45.909 Unspecified asthma, uncomplicated; F31.9 Bipolar disorder, unspecified; G40.909 Epilepsy, unspecified, not intractable, without status epilepticus; Z79.899 Other long term (current) drug therapy; F17.200 Nicotine dependence, unspecified, uncomplicated
CPT/HCPCS: 71046; 80048; 84484; 85025; 87804; 93005; 94640; 96360; 96361; 99251; 99284; J7030; A4216; G0463

== ENCOUNTER 2019-09-23 18:00 | Emergency (ER) | payer MEDICAID, SELFPAY ==
[2019-09-23 18:01] VITALS: BP 124/72; PULSE 93; RESP 24; TEMP 36.2; O2SAT 98; BMI 22.9
--- NOTE | 2019-09-23 18:40 | EKG12_ITS ---
Test Reason : DIZZINESS Blood Pressure : / mmHG Vent. Rate : 070 BPM Atrial Rate : 070 BPM P-R Int : 146 ms QRS Dur : 102 ms QT Int : 378 ms P-R-T Axes : 049 029 056 degrees QTc Int : 408 ms Normal sinus rhythm Normal ECG Confirmed by LUKAS PALACIOS, MONIK ([id number]), manager editorial BECKA IVERSON ([id number]) on 09/27/2019 10:45:31 AM Referred By: NEY Confirmed By:MONIK GAYTAN MD
[2019-09-23 19:03] LABS: Absolute Lymphocyte Count 3.03 X10^3/uL (0.83-4.51); Absolute Neutrophil Count 5.5 X10^3/uL (2.0-7.7); Basophil# 0.05 X10^3/uL; Basophil% 0.5 % (0-1); Eosinophil# 0.17 X10^3/uL; Eosinophils% 1.8 % (0-5); Hematocrit 42.7 % (40-54); Hemoglobin 14.8 g/dL (13.0-16.5); Lymphocyte # 3.03 X10^3/ul (4.0); Lymphocyte % 31.5 % (19-41); Mean Corp Hgb Conc 34.7 g/dL (32-36); Mean Corpuscular Volume 89.3 fL (80-94); Monocyte# 0.83 X10^3/uL; Monocyte% 8.6 % (0-10); NRBC Flagged by Analyzer 0 % (0-5); Neutrophil # 5.52 X10^3/uL (2.7-7.7); Neutrophil % 57.3 % (47-70); Platelet Count 305 K/mm3 (150-450); RBC Distribution Width CV 12.5 % (11.6-14.6); RBC Distribution Width SD 40.8 fl (35.1-43.9); Red Blood Count 4.78 M/mm3 (4.6-6.2); White Blood Count 9.6 K/mm3 (4.4-11.0)
--- NOTE | 2019-09-23 19:05 | RAD_ITS ---
STUDY: X-RAY CHEST REASON FOR EXAM: Male, 33 years old. Increase in sob hx of copd TECHNIQUE: Single AP portable view of the chest. COMPARISON: 06/20/2019. FINDINGS: The lungs are clear and expanded. There is no demonstrated pleural abnormality. Normal size heart. Normal mediastinum and chhaya. Normal visualized pulmonary arteries. Normal visualized aortic arch and descending thoracic aorta. Normal visualized thoracic spine. Normal visualized ribs, clavicles, and shoulders. There is no demonstrated abnormality of the visualized soft tissue structures of the upper abdomen. RAD/Chest 1 View (Portable) IMPRESSION: Normal x-ray examination of the chest. Electronically Signed: Nehemiah Garcia MD at 19:37 EDT , Service support ,
[2019-09-23 19:19] LABS: Anion Gap 7 (5-15); BUN 11 mg/dL (7-18); BUN/Creat Ratio 10.5 RATIO (10-20); Calcium,Total 9.1 mg/dL (8.5-10.1); Chloride 107 mmol/L (98-107); Creatinine, Serum 1.05 mg/dL (0.70-1.30); D-Dimer Quantitative (DVT/PE) <= 0.27 FEU/ug/m (0.27-0.49); EST Glomerular Filtration Rate 86 mL/min (>60); Est Glom Filt Rate - Afr Amer 104 mL/min (>60); Estimated Creatinine Clearance 102.72 ml/min; Glucose 108 mg/dL (74-106); Potassium 3.7 mmol/L (3.5-5.1); Sodium Level 138 mmol/L (136-145)
--- NOTE | 2019-09-23 19:58 | ED.VISSUMM ---
- ER Visit Summary Date of Service: 09/23/19 Chief Complaint: Shortness of breath History of Present Illness: The patient is a [address] Ventura. He reports his shortness of breath that began 3 weeks ago. He denies any cough, fever, chills, chest pain. Reports his shortness of breath is mild currently and moderate at worst. States he has had similar symptoms previously with his asthma/COPD. He got a shot of prednisone 1 to 2 weeks ago without relief. He has been using his inhalers without relief. He reports that he is a recluse and denies any possible exposure to coronavirus. Physical Examination: Vitals: Stable. Afebrile. General: Well-nourished and well-developed. Head: Normocephalic atraumatic. Neck: Supple, no lymphadenopathy. No JVD. Nontender. Cardiovascular: Regular rate and rhythm. No murmurs. Respiratory: No respiratory distress. Clear to auscultation bilaterally. Abdominal: Soft, nontender, nondistended, normal bowel sounds. No guarding, rebound, or peritoneal signs. Back: Nontender. Extremities: Nontender, no edema. Skin: Normal color, no rash. Neurologic: Alert and oriented ?3. Cranial nerves II through XII are intact. Normal strength and sensation. Psych: Normal affect. Test Results: EKG is sinus at [address] changes. D-dimer is negative. Chem-7 shows a glucose 108. CBC is normal. Chest x-ray is normal. Emergency Department Course and Treatment: Patient is rested comfortably. He is concerned that he has had an allergic reaction to something here as there is a red spot on his abdomen that developed while he was here. All he was given here with saline. I do not appreciate any urticarial lesions. However, the patient was given a dose of Benadryl to reassure him. Treatment Plan: Patient will be discharged instructions to follow-up his primary care physician in 3 to 5 days if not improving. Push fluids. Return to the emergency department for any worsening symptoms. Disposition: To home in improved and stable condition. Impression: 1. Dyspnea, uncertain cause. 2. History of asthma. 3. History of COPD. This note was generated with [employer] software. It may contain incorrect words, spelling, and punctuation that were not noted in review of the chart prior to signing ED Disposition - Plan for ED Patient: Disposition: Home or Assisted Living Instructions: ED Dyspnea Referrals: Sen Ventura MD [Primary Care Provider] - 3-5 Days
[2019-09-23] MEDS: DiphenhydrAMINE 50 MG/ML Syringe 25 MG IV (20:09)
--- NOTE | 2019-09-23 20:10 | ED.RN ---
pt concerned for allergic reaction. rash noted to left side. x1 benadryl IV given.
== END 2019-09-23 20:11 | disposition home or self-care (01) ==
LOC: ED 19:18
PROVIDERS: Emergency Provider Emergency Medicine; PCP Family Medicine
DX: R06.00 Dyspnea, unspecified (principal); J44.9 Chronic obstructive pulmonary disease, unspecified; R56.9 Unspecified convulsions; Z72.0 Tobacco use; Z79.51 Long term (current) use of inhaled steroids; Z79.899 Other long term (current) drug therapy
CPT/HCPCS: 71045; 80048; 85025; 85379; 93005; 96361; 96374; 99284; J7030; A4216

== ENCOUNTER 2019-10-13 10:25 | Emergency (ER) | payer MEDICAID, SELFPAY ==
[2019-10-13 10:26] VITALS: BP 126/85; PULSE 78; RESP 24; TEMP 36.6; O2SAT 98; BMI 24.7
--- NOTE | 2019-10-13 10:32 | EKG12_ITS ---
Test Reason : CP Blood Pressure : / mmHG Vent. Rate : 078 BPM Atrial Rate : 078 BPM P-R Int : 140 ms QRS Dur : 100 ms QT Int : 368 ms P-R-T Axes : 043 009 063 degrees QTc Int : 419 ms Normal sinus rhythm Normal ECG Confirmed by LUKAS PALACIOS, MONIK ([id number]), publishing editor BECKA IVERSON ([id number]) on 10/17/2019 8:09:52 AM Referred By: MR Confirmed By:MONIK GAYTAN MD
--- NOTE | 2019-10-13 10:33 | RAD_ITS ---
STUDY: X-RAY CHEST REASON FOR EXAM: Male, 33 years old. PAIN IN LEFT ARM INTO CHEST STARTING LAST NIGHT, HX OF COPD AND ASTHMA TECHNIQUE: AP and lateral views of the chest. COMPARISON: Comparison is made with prior study dated September 23, 2019. FINDINGS: EKG electrodes are seen. The lungs are clear and expanded. There is no demonstrated pleural abnormality. Normal size heart. Normal mediastinum and chhaya. Normal visualized pulmonary arteries. Normal visualized aortic arch and descending thoracic aorta. Normal visualized thoracic spine. Normal visualized ribs, clavicles, and shoulders. There is no demonstrated abnormality of the visualized soft tissue structures of the upper abdomen. RAD/Chest PA and Lateral IMPRESSION: Normal x-ray examination of the chest. Electronically Signed: John Colón, at 11:14 EDT , Service support ,
--- NOTE | 2019-10-13 10:33 | ED.VIS.CHEST ---
History of Present Illness Chief Complaint: Chest Pain Informant: Patient Narrative: Patient presenting for evaluation secondary to chest pain. Patient reports that since last night he has had continuous chest pain that is in his left chest going down his left arm. Patient describes this as sharp and severe. No exacerbating relieving factors. He does feel somewhat short of breath with this. Is not exertional. It started while at rest. Patient denies that he has had prior similar episodes in the past. He denies fever, cough, nausea, vomiting, diarrhea. Patient denies any history of hypertension hyperlipidemia, or premature family history although he is unsure of his family history due to adoption. He is a smoker. He denies any DVT or PE risk factors. Patient reports that he did not come to the hospital last night because I am stubborn and I had alcohol in my system Past Medical History - Allergies and Home Meds Allergies/Adverse Reactions: Allergies chocolate flavor Allergy (Verified 10/13/19 10:49) Swelling clindamycin Allergy (Verified 10/13/19 10:49) Rash iodine Allergy (Verified 10/13/19 10:49) Rash morphine Allergy (Verified 10/13/19 10:49) SLOWS HR BRADYCARDIA Penicillins Allergy (Verified 10/13/19 10:49) Rash Sulfa (Sulfonamide Antibiotics) Allergy (Verified 10/13/19 10:49) Rash sulfamethoxazole [From Bactrim] Allergy (Verified 10/13/19 10:49) Rash tramadol Allergy (Verified 10/13/19 10:49) Rash trimethoprim [From Bactrim] Allergy (Verified 10/13/19 10:49) Rash Iodinated Contrast Media [CONTRASTS] Adverse Reaction (Verified 10/13/19 10:49) Diarrhea GI BLEED prednisone Adverse Reaction (Verified 10/13/19 10:49) Rash red dye Adverse Reaction (Verified 10/13/19 10:49) Diarrhea Primary Care Physician: Sen Ventura MD [Primary Care Provider] - Prior records reviewed: Yes Past Medical History: - - Asthma Surgical History: noncontributory Lives: With Family Smoking Status: Current every day smoker Alcohol: Occasional Drugs: None Review of Systems All systems negative except as indicated General: Denies: Chills, Fever, Sweats Eyes: Denies: Visual changes - bilaterally, Diplopia ENT: Denies: Rhinorrhea, Sore throat Cardiovascular: Reports: Chest pain Respiratory: Reports: Dyspnea Gastrointestinal: Denies: Abdominal pain, Nausea, Vomiting, Diarrhea, Melena, Hematochezia Genitourinary: Denies: Dysuria, Hematuria, Frequency Musculoskeletal: Denies: Back pain, Extremity Pain Skin: Denies: Rash, Wounds Neurological: Denies: Headache, Weakness, Numbness Physical Exam Vital Signs/Narrative: Vital Signs Temp Pulse Resp BP Pulse Ox 10/13/19 10:26 97.9 F 78 24 H 126/85 H 98 Inital Vital Signs reviewed: Yes General: Well nourished, Well developed, No Acute Distress, - - Anxious appearing male who is somewhat hyperventilating but not in respiratory distress Head: Normocephalic, Atraumatic Eyes: Perrl, EOMI ENT: Moist mucous membranes, No rhinorrhea Neck: Supple, Nontender Cardiovascular: Regular rate, Regular rhythm, No murmurs, - - 2+ radial pulses, 2+ carotid pulses, 2+ PT pulses bilaterally symmetric Respiratory: No distress, CTA bilaterally, Chest nontender Abdomen: Soft, Nontender, Nondistended, Normal bowel sounds Back: Nontender, Normal Inspection Extremities: Nontender, No edema Skin: Normal color, No rash Neurological: Alert, Oriented x3, Cranial nerves II-XII grossly intact, Normal Strength, Normal Sensation Psychological: Normal affect, Normal Mood Diagnostic/Tx/Re-eval Chest X-Ray - ED: 2 View, Read by ED Physician, Read by Radiologist, Normal Clinical Impression(s) from Imaging Studies Chest X-Ray 10/13/19 10:33 IMPRESSION: Normal x-ray examination of the chest. Electronically Signed: John Colón, at 11:14 EDT , Service support , Laboratory Data 10/13/19 10/13/19 10:35 10:35 WBC 7.8 RBC 4.96 Hgb 15.6 Hct 44.2 MCV 89.1 MCH 31.5 MCHC 35.3 RDW Std Deviation 38.0 RDW Coeff of Mable 11.9 Plt Count 293 MPV 9.9 Immature Gran % (Auto) 0.300 Neut % (Auto) 59.6 Lymph % (Auto) 29.5 [place] % (Auto) 7.5 Eos % (Auto) 2.6 Baso % (Auto) 0.5 Absolute Neuts (auto) 4.7 Absolute Lymphs (auto) 2.31 Nucleated RBC % 0 Sodium 132 L Potassium 4.0 Chloride 102 Carbon Dioxide 23.0 Anion Gap 7 BUN 9 Creatinine 0.85 Estim Creat Clear Calc 127.63 Est GFR (MDRD) Af Amer 132 Est GFR (MDRD) Non-Af 109 BUN/Creatinine Ratio 10.6 Glucose 81 Calcium 8.8 Troponin I < 0.015 - EKG Initial EKG Interpretation: - - Sinus rhythm at [address] segments normal T waves normal OK and QTc intervals no evidence of WPW or Brugada morphology. - Medical Decision Making Patient presented secondary to chest pain. EKG found to be unremarkable. PA and lateral chest x-ray by my review as well as radiology found to be negative. CBC chemistry and troponin found to be negative. Patient's heart score is a maximum of 1, he does not require further work-up or admission. He is capital PE RC negative, no indication for work-up for pulmonary embolism. Patient's presentation likely is consistent either with anxiety or with musculoskeletal chest pain. Patient was given reassurance and he was discharged with outpatient follow-up with primary care. ED Disposition - Plan for ED Patient: Disposition: Home or Assisted Living Diagnosis: Chest pain Instructions: ED Chest Pain NonCardiac Referrals: Sen Ventura MD [Primary Care Provider] - 1 Week
[2019-10-13 10:39] VITALS: O2SAT 96
[2019-10-13 10:47] LABS: Absolute Lymphocyte Count 2.31 X10^3/uL (0.83-4.51); Absolute Neutrophil Count 4.7 X10^3/uL (2.0-7.7); Basophil# 0.04 X10^3/uL; Basophil% 0.5 % (0-1); Eosinophils% 2.6 % (0-5); Hematocrit 44.2 % (40-54); Hemoglobin 15.6 g/dL (13.0-16.5); Lymphocyte # 2.31 X10^3/ul (4.0); Lymphocyte % 29.5 % (19-41); Mean Corp Hgb Conc 35.3 g/dL (32-36); Mean Corpuscular Hgb 31.5 pg (27.0-32.0); Mean Corpuscular Volume 89.1 fL (80-94); Mean Platelet Vol. 9.9 fl (6.2-12.0); Monocyte# 0.59 X10^3/uL; Monocyte% 7.5 % (0-10); NRBC Flagged by Analyzer 0 % (0-5); Neutrophil # 4.66 X10^3/uL (2.7-7.7); Neutrophil % 59.6 % (47-70); Platelet Count 293 K/mm3 (150-450); RBC Distribution Width CV 11.9 % (11.6-14.6); Red Blood Count 4.96 M/mm3 (4.6-6.2); White Blood Count 7.8 K/mm3 (4.4-11.0)
[2019-10-13] MEDS: Aspirin 81 MG TAB.CHEW 324 MG PO (10:47)
[2019-10-13 11:04] LABS: Anion Gap 7 (5-15); BUN 9 mg/dL (7-18); BUN/Creat Ratio 10.6 RATIO (10-20); Calcium,Total 8.8 mg/dL (8.5-10.1); Chloride 102 mmol/L (98-107); Creatinine, Serum 0.85 mg/dL (0.70-1.30); EST Glomerular Filtration Rate 109 mL/min (>60); Est Glom Filt Rate - Afr Amer 132 mL/min (>60); Estimated Creatinine Clearance 127.63 ml/min; Glucose 81 mg/dL (74-106); Sodium Level 132 mmol/L (136-145)
[2019-10-13 12:54] VITALS: BP 124/79; PULSE 84; RESP 18; O2SAT 98
--- NOTE | 2019-10-13 12:55 | ED.RN ---
THIS NURSE REVIEWED D/C INSTRUCTIONS WITH PT. PT VERBALIZED UNDERSTANDING OF INSTRUCTIONS. IV D/C. IV CATHETER INTACT. PT AND VISITOR VERY VERBALLY AGGRESSIVE WITH THIS NURSE. PT STATES IF YOU ARE JUST GOING TO GIVE ME IBUPROFEN DON'T BOTHER. THAT DOCTOR IS A QUACK. THIS NURSE INFORMED PT HE HAS NOT RECEIVED ANY NEW PRESCRIPTIONS. PT DENIES FURTHER NEEDS OR QUESTIONS AT THIS TIME. PT AMBULATES FROM DEPARTMENT ON OWN WITHOUT ASSISTANCE FROM STAFF
== END 2019-10-13 12:58 | disposition home or self-care (01) ==
PROVIDERS: Emergency Provider Emergency Medicine; PCP Family Medicine
DX: R07.9 Chest pain, unspecified (principal); J45.909 Unspecified asthma, uncomplicated; F17.200 Nicotine dependence, unspecified, uncomplicated
CPT/HCPCS: 71046; 80048; 84484; 85025; 93005; 99284; A4216

== ENCOUNTER 2019-11-30 15:34 | Emergency (ER) | payer MEDICAID, SELFPAY ==
[2019-11-30 15:35] VITALS: BP 127/84; PULSE 97; RESP 20; TEMP 36.5; O2SAT 99; BMI 24.6
--- NOTE | 2019-11-30 15:43 | ED.DCSUM_ITS ---
- ER Visit Summary Date of Service: 11/30/19 Chief Complaint: Sting History of Present Illness: The patient is a 34 M with a sting to his right forearm. He is allergic to bees. He had shortness of breath and wheezing. He was treated with epinephrine 0.3 mg and Benadryl 50 mg by EMS. He took 2 puffs of his inhaler. He has a history of asthma and COPD. He is slowly feeling better. Physical Examination: Afebrile and vital signs unremarkable. HEENT exam unremarkable. Airway intact. Heart regular. Lungs diminished in all holguin. Abdomen soft. Extremities nontender with no edema. No rash. Test Results: None indicated Emergency Department Course and Treatment: Patient was placed on a monitor. His vitals are stable. He seems to be improving. Will monitor. He was treated with Solu-Medrol IV, after discussion with the patient. On reevaluation, patient was feeling much better. Vitals were normal. He needed to leave for transportation reasons. He will sign out AGAINST MEDICAL ADVICE as he was advised that we will normally monitor for at least 4 hours. Patient was educated about rebound symptoms and will return for any problems. He was given a prescription for Benadryl, prednisone, Pepcid, EpiPen. Follow-up as an outpatient. Treatment Plan: Above Disposition: AMA Impression: Bee sting, anaphylaxis This note was generated with [employer] dictation software. It may contain incorrect words, spelling, and punctuation that were not noted in review of the chart prior to signing ED Disposition - Plan for ED Patient: Referrals: Sen Ventura MD [Primary Care Provider] -
[2019-11-30] MEDS: MethylPREDNISolone 125 MG/2 ML Vial IV (15:47)
[2019-11-30 16:28] VITALS: BP 132/87; PULSE 88; RESP 22; O2SAT 95
--- NOTE | 2019-11-30 16:51 | ED.DEP ---
ED Disposition - Plan for ED Patient: Instructions: ED BEE STING General Allergic Rxn Prescriptions: DiphenhydrAMINE [Benadryl] 25 mg PO TID 5 Days #15 cap Prescription Printed Epi Pen (for allergic rxn) 0.3 mg IM X1 #2 syringe Prescription Printed Famotidine [Pepcid] 20 mg PO BID #10 tab Prescription Printed Prednisone 10 mg PO UD #33 tab Prescription Printed Referrals: Sen Ventura MD [Primary Care Provider] -
[2019-11-30 17:05] VITALS: BP 132/74; PULSE 66; RESP 15; O2SAT 99
== END 2019-11-30 17:06 | disposition left against medical advice (07) ==
PROVIDERS: Emergency Provider Emergency Medicine; PCP Family Medicine
DX: T63.441A Toxic effect of venom of bees, accidental (unintentional), initial encounter (principal); F17.200 Nicotine dependence, unspecified, uncomplicated; J44.9 Chronic obstructive pulmonary disease, unspecified
CPT/HCPCS: 96374; 99285; A4216

== ENCOUNTER 2020-05-31 09:44 | Emergency (ER) | payer MEDICAID, SELFPAY ==
[2020-01-03 14:02] VITALS: BMI 24.6
[2020-05-31 09:44] VITALS: BP 126/91; PULSE 96; RESP 15; TEMP 37.2; O2SAT 97; BMI 26.9
[2020-05-31 09:47] VITALS: BP 126/91; PULSE 96; RESP 15; TEMP 37.2; O2SAT 97
--- NOTE | 2020-05-31 09:48 | CT_ITS ---
STUDY: CT ABDOMEN AND PELVIS WITHOUT CONTRAST REASON FOR EXAM: Male, 34 years old. Diffuse abd pain RADIATION DOSAGE (If Supplied By Facility): CTDIvol = ( 6.98 ) mGy, DLP = ( 379.92 ) mGycm TECHNIQUE: Transaxial images were obtained from the dome of the diaphragm to the symphysis pubis without oral contrast, and without intravenous contrast. Sagittal and coronal images were reconstructed. Individualized dose optimization techniques were used for this CT. COMPARISON: Comparison is made with prior study dated 11/24/2018. FINDINGS: Minimal degree of bibasilar atelectasis. The visualized portions of the heart are within normal limits. Normal liver. Normal gallbladder and extrahepatic biliary system. Normal spleen. Normal pancreas. Normal bilateral adrenal glands. Normal right kidney. Normal left kidney. Normal visualized stomach. Normal small intestine. Normal colon. The appendix is visualized and appears normal. Small lymph nodes are seen within the mesentery in the right lower quadrant suggestive of mesenteric adenitis. Normal abdominal aorta. Normal inferior vena cava. Normal retroperitoneum. Normal urinary bladder. There is a small umbilical hernia containing fat. Normal osseous structures. CT/Abdomen/Pelvis without Cont IMPRESSION: Findings suggestive of mesenteric adenitis. Electronically Signed: John Colón MD at 11:24 EST , Service support ,
--- NOTE | 2020-05-31 09:49 | ED.VIS.GI ---
History of Present Illness Chief Complaint: General Illness Informant: Patient - Abdominal Pain/Flank Pain Onset: 06-07 Context: Gradual Onset Timing: Continuous Quality: Sharp Location: Diffuse - nonmigrating. radiating into low back, nonlateralizing. Current Severity: Moderate Maximum Severity: Moderate Worsened by: Nothing Relieved by: Nothing - Nausea/Vomiting/Emesis GI Symptom: Negative for: Nausea, Vomiting - Diarrhea/Melena/Hematochezia GI Symptom: Diarrhea - 3-4x per day avg. Negative for: Melena, Hematochezia Onset: 06-07 Stool Quality: - - like pea soup Associated Symptoms: Dysuria - like razor blades. Negative for: Frequency, Hematuria, Urgency Narrative: Patient presenting with diffuse abdominal pain that started at the same time as low back discomfort several days ago, also associated with diarrhea. No nausea or vomiting. Today he developed a fever up to 101. This was measured by his and EMS measured him at 100. He has a chronic mild cough that is unchanged, along with asthma and COPD. He has been drinking plenty of fluids, his appetite is unchanged and states at baseline he eats 1 meal per day and he is still doing that. No history of surgeries in his abdomen. Denies any suspicious food ingestion that could be related to this or uncooked/undercooked meats. He denies being on any antibiotics lately/recently. No recent travel out of the local area. No recent surgery or hospitalization. No history of C. difficile that he knows of. No sick contacts with similar symptoms that he knows of including coronavirus. He denies having had COVID-19 in the last year or suspecting that he had it. - Past Medical History (1) Seizure disorder Status: Chronic (2) Asthma Status: Chronic Past Medical History - Allergies and Home Meds Allergies/Adverse Reactions: Allergies bee venom protein (honey bee) Allergy (Verified 05/31/20 09:48) Anaphylaxis chocolate flavor Allergy (Verified 05/31/20 09:48) Swelling clindamycin Allergy (Verified 05/31/20 09:48) Rash iodine Allergy (Verified 05/31/20 09:48) Rash morphine Allergy (Verified 05/31/20 09:48) SLOWS HR BRADYCARDIA Penicillins Allergy (Verified 05/31/20 09:48) Rash Sulfa (Sulfonamide Antibiotics) Allergy (Verified 05/31/20 09:48) Rash sulfamethoxazole [From Bactrim] Allergy (Verified 05/31/20 09:48) Rash tramadol Allergy (Verified 05/31/20 09:48) Rash trimethoprim [From Bactrim] Allergy (Verified 05/31/20 09:48) Rash Iodinated Contrast Media [CONTRASTS] Adverse Reaction (Verified 05/31/20 09:48) Diarrhea GI BLEED prednisone Adverse Reaction (Verified 05/31/20 09:48) Rash red dye Adverse Reaction (Verified 05/31/20 09:48) Diarrhea Primary Care Physician: Sen Ventura MD [Primary Care Provider] - Surgical History: - - right hand MC fx Lives: Spouse/ Significant Other Smoking Status: Current every day smoker Review of Systems General: Reports: Chills, Fever, Malaise. Denies: Sweats Eyes: Denies: Visual changes - bilaterally, Diplopia ENT: Denies: Bilateral ear pain, Rhinorrhea, Sore throat Cardiovascular: Denies: Chest pain, Palpitations Respiratory: Reports: Cough, Orthopnea - chronic. Denies: Dyspnea, Sputum, Dyspnea on exertion Gastrointestinal: Reports: Abdominal pain, Diarrhea. Denies: Nausea, Vomiting, Melena, Hematochezia Genitourinary: Reports: Dysuria, - - Chronic lumps and bumps on scrotum. No penile discharge.. Denies: Hematuria, Frequency Musculoskeletal: Reports: Back pain. Denies: Neck pain, Swelling, Extremity Pain Skin: Denies: Rash, Wounds Neurological: Denies: Headache, Weakness, Numbness Physical Exam Vital Signs/Narrative: Vital Signs Temp Pulse Resp BP Pulse Ox 05/31/20 09:44 98.9 F 96 15 126/91 H 97 Inital Vital Signs reviewed: Yes General: Well nourished, Well developed, No Acute Distress - well-appearing, NAD Head: Normocephalic, Atraumatic Eyes: Perrl, EOMI ENT: Moist mucous membranes, No rhinorrhea Neck: Supple, Nontender Cardiovascular: Regular rate, Regular rhythm, No murmurs. Negative for: Tachycardia Respiratory: No distress, CTA bilaterally, Chest nontender Abdomen: Soft, Nondistended, Normal bowel sounds, No masses, Tender - diffusely tender. Negative for: Guarding, Rebound tenderness, Pulsatile mass : - - Several small chronic skin-colored subcentimeter nontender papules on scrotal skin without erythema, pustule, testicular tenderness or hydrocele palpable. Penis normal without urethral erythema or discharge. Back: Normal Inspection - w/o rash, - - diffusely tender from lower thoracic back, down; to both superficial palpation and testing for CVA tend equally. normal-appearing. sits up in bed without assistance or apparent discomfort. Extremities: Nontender, No edema Skin: Normal color, No rash Neurological: Alert, Oriented x3, Cranial nerves II-XII grossly intact, Normal Strength, Normal Sensation Psychological: Normal affect, Normal Mood Diagnostic/Tx/Re-eval Impressions Abdomen/Pelvis CT 05/31/20 09:48 IMPRESSION: Findings suggestive of mesenteric adenitis. Electronically Signed: John Colón MD at 11:24 EST , Service support , 05/31/20 09:48 CT Abd [Abdomen/Pelvis without Cont] [CT] Stat 05/31/20 10:27 Mucosa - Nose SARS-CoV-2 Antigen (Rapid) - Final Laboratory Results 05/31/20 05/31/20 05/31/20 10:00 10:00 10:00 WBC 8.1 RBC 4.33 L Hgb 13.5 Hct 40.3 MCV 93.1 MCH 31.2 MCHC 33.5 RDW Std Deviation 40.5 RDW Coeff of Mable 11.7 Plt Count 175 MPV 10.6 Immature Gran % (Auto) 0.400 Neut % (Auto) 76.9 H Lymph % (Auto) 14.6 L [place] % (Auto) 7.6 Eos % (Auto) 0.1 Baso % (Auto) 0.4 Absolute Neuts (auto) 6.2 Absolute Lymphs (auto) 1.18 Nucleated RBC % 0 Sodium 138 Potassium 3.6 Chloride 109 H Carbon Dioxide 23.0 Anion Gap 6 BUN 10 Creatinine 1.14 Estim Creat Clear Calc 94.27 Est GFR (MDRD) Af Amer 94 Est GFR (MDRD) Non-Af 78 BUN/Creatinine Ratio 8.8 L Glucose 114 H Lactic Acid 1.3 Calcium 8.6 Total Bilirubin 0.20 AST 18 ALT 36 Alkaline Phosphatase 92 Total Protein 7.0 Albumin 3.4 Globulin 3.6 Albumin/Globulin Ratio 0.9 Lipase 105 Urine Color Urine Clarity Urine pH Ur Specific [place] Urine Protein Urine Glucose (UA) Urine Ketones Urine Occult Blood Urine Nitrite Urine Bilirubin Urine Urobilinogen Ur Leukocyte Esterase Urine RBC Urine WBC Ur Squamous Epith Cells Urine Bacteria Urine Mucus 05/31/20 11:17 WBC RBC Hgb Hct MCV MCH MCHC RDW Std Deviation RDW Coeff of Mable Plt Count MPV Immature Gran % (Auto) Neut % (Auto) Lymph % (Auto) [place] % (Auto) Eos % (Auto) Baso % (Auto) Absolute Neuts (auto) Absolute Lymphs (auto) Nucleated RBC % Sodium Potassium Chloride Carbon Dioxide Anion Gap BUN Creatinine Estim Creat Clear Calc Est GFR (MDRD) Af Amer Est GFR (MDRD) Non-Af BUN/Creatinine Ratio Glucose Lactic Acid Calcium Total Bilirubin AST ALT Alkaline Phosphatase Total Protein Albumin Globulin Albumin/Globulin Ratio Lipase Urine Color Yellow Urine Clarity Clear Urine pH 6.0 Ur Specific [place] 1.010 Urine Protein Negative Urine Glucose (UA) Normal Urine Ketones Negative Urine Occult Blood Negative Urine Nitrite Negative Urine Bilirubin Negative Urine Urobilinogen Normal Ur Leukocyte Esterase 25 H Urine RBC 0 SEEN Urine WBC 0 SEEN Ur Squamous Epith Cells 0-5 SEEN Urine Bacteria 0 SEEN Urine Mucus 0 SEEN - Medical Decision Making Patient was given IV fluids, Toradol, Bentyl and had some improvement in his symptoms. I do not think he needs narcotics, he is well-appearing. His urine shows no signs of infection. CT for diffuse pain given the diverse differential shows mesenteric adenitis. Given all this, and the lack of leukocytosis, my suspicion is that he has a viral etiology of this. Enteric bacterial panel was ordered but the patient did not have diarrhea while he was here, nor do I think he needs it based on with the data that we have now. Supportive care advised and close outpatient follow-up if the symptoms persist, I would not put him on an antibiotic for any of this at this time, since that could worsen his diarrhea and cause dehydration. Patient given a dose of antidiarrheal prior to discharge. Given his minor scrotal skin issues, they appear chronic and he does not require referral to a specialist for any of this at this time and I reassured him. ED Disposition - Plan for ED Patient: Disposition: Home or Assisted Living Diagnosis: Acute diarrhea, Mesenteric adenitis, Dysuria Instructions: ED Adenitis, Mesenteric, ED Diarrhea, Unknown Cause Prescriptions: Dicyclomine HCl [Bentyl] 1 - 2 cap PO Q4H PRN #20 cap PRN Reason: abdominal pain Transmission Status: Pending to [phone] Referrals: Sen Ventura MD [Primary Care Provider] - 1 Week if not improving Additional Instructions: Stay hydrated, Gatorade or Powerade is excellent for this. [id number] antidiarrheal should be okay to use as needed.
[2020-05-31] MEDS: 0.9% Normal Saline 1,000 ML 1000 ML IV (10:00)
[2020-05-31] MEDS: Dicyclomine 10 MG Capsule 20 MG PO (10:01)
[2020-05-31] MEDS: Ketorolac 30 MG/ML Syringe IV (10:02)
[2020-05-31 10:09] LABS: Absolute Lymphocyte Count 1.18 X10^3/uL (0.83-4.51); Absolute Neutrophil Count 6.2 X10^3/uL (2.0-7.7); Basophil# 0.03 X10^3/uL; Basophil% 0.4 % (0-1); Eosinophil# 0.01 X10^3/uL; Eosinophils% 0.1 % (0-5); Hematocrit 40.3 % (40-54); Hemoglobin 13.5 g/dL (13.0-16.5); Lymphocyte # 1.18 X10^3/ul (4.0); Lymphocyte % 14.6 % (19-41); Mean Corp Hgb Conc 33.5 g/dL (32-36); Mean Corpuscular Hgb 31.2 pg (27.0-32.0); Mean Corpuscular Volume 93.1 fL (80-94); Mean Platelet Vol. 10.6 fl (6.2-12.0); Monocyte# 0.61 X10^3/uL; Monocyte% 7.6 % (0-10); NRBC Flagged by Analyzer 0 % (0-5); Neutrophil % 76.9 % (47-70); Platelet Count 175 K/mm3 (150-450); RBC Distribution Width CV 11.7 % (11.6-14.6); RBC Distribution Width SD 40.5 fl (35.1-43.9); Red Blood Count 4.33 M/mm3 (4.6-6.2); White Blood Count 8.1 K/mm3 (4.4-11.0)
[2020-05-31 10:25] LABS: ALB/GLOB Ratio 0.9 RATIO (0.9-2.4); AST(SGOT) 18 U/L (15-37); Alanine Aminotransfer ALT/SGPT 36 U/L (16-61); Albumin, Serum 3.4 g/dL (3.2-5.0); Alkaline Phosphatase 92 U/L (45-117); Anion Gap 6 (5-15); BUN 10 mg/dL (7-18); BUN/Creat Ratio 8.8 RATIO (10-20); Calcium,Total 8.6 mg/dL (8.5-10.1); Chloride 109 mmol/L (98-107); Creatinine, Serum 1.14 mg/dL (0.70-1.30); EST Glomerular Filtration Rate 78 mL/min (>60); Est Glom Filt Rate - Afr Amer 94 mL/min (>60); Estimated Creatinine Clearance 94.27 ml/min; Globulin 3.6 g/dL (2.2-4.2); Glucose 114 mg/dL (74-106); Lipase 105 U/L (73-393); Potassium 3.6 mmol/L (3.5-5.1); Sodium Level 138 mmol/L (136-145)
[2020-05-31 10:38] LABS: Lactic Acid 1.3 mmol/L (0.4-1.9)
[2020-05-31 11:25] LABS: Bacteria 0 SEEN /hpf (None Seen); Mucous, Urine 0 SEEN /hpf (<or=2+); Red Blood Cells-Urine 0 SEEN /hpf (0-5); White Blood Cells 0 SEEN /hpf (0-5)
[2020-05-31 11:26] LABS: Color, Urine Yellow (Yellow); Glucose, Dipstick Normal (Normal); Ketone-Dipstick Negative (Negative); Leukocyte Esterase-Dipstick 25 /ul (Negative); Nitrite-Dipstick Negative (Negative); Occult Blood-Urine Negative /ul (Negative); Protein-Dipstick Negative (Negative); Urine Bilirubin Dipstick Negative (Negative); Urine Clarity Clear (Clear); Urine Urobilinogen Normal (Normal)
[2020-05-31 11:37] LABS: Squamous Epithelial Cells - UA 0-5 SEEN /hpf (0-5)
[2020-05-31 11:51] VITALS: BP 113/76; PULSE 57; RESP 13; O2SAT 97
[2020-05-31] MEDS: Loperamide 2 MG Capsule 4 MG PO (13:10)
== END 2020-05-31 13:11 | disposition home or self-care (01) ==
PROVIDERS: Emergency Provider Emergency Medicine; PCP Family Medicine
DX: R19.7 Diarrhea, unspecified (principal); I88.0 Nonspecific mesenteric lymphadenitis; R30.0 Dysuria; F17.200 Nicotine dependence, unspecified, uncomplicated; J45.909 Unspecified asthma, uncomplicated; G40.909 Epilepsy, unspecified, not intractable, without status epilepticus
CPT/HCPCS: 74176; 80053; 81001; 83605; 83690; 85025; 87040; 87426; 96374; 99285; J7030; A4216

== ENCOUNTER 2020-09-28 23:47 | Emergency (ER) | payer MEDICAID, SELFPAY ==
[2020-08-20 09:01] VITALS: BMI 26.9
[2020-09-28 23:51] VITALS: RESP 18
[2020-09-28 23:52] VITALS: BP 144/86; PULSE 76; RESP 16; TEMP 37.1; O2SAT 98; BMI 25.2
[2020-09-29] MEDS: Ketorolac 30 MG/ML Syringe IV (00:31)
[2020-09-29] MEDS: MethylPREDNISolone 125 MG/2 ML Vial IV (00:32)
[2020-09-29] MEDS: Famotidine 200 MG/20 ML MDV 20 MG in 0.9% Normal Saline (Pres. free 8 ML 300 MG IV (00:38)
--- NOTE | 2020-09-29 01:37 | EDS_ITS ---
HPI History of Present Illness Chief Complaint: Bite Informant: patient and spouse/S.O. Onset/Context/Timing Onset: Today Current Severity: Mild Maximum Severity: Mild Narrative Narrative: Patient presents secondary to concern for allergic reaction to bites. Patient reported was mowing the yard earlier today. He has multiple small red areas noted on his extremities. He called EMS tonight when he felt like his throat was starting to get tight. He did take 50 mg of Benadryl prior to arrival. [facility] Medical History Alcoholism History of head injury Hx of dizziness Marijuana use Neuropathy Seizures Home Medications albuterol sulfate 2 puff INHALATION Q4H PRN PRN #1 inhaler 06/20/19 [Rx Last Taken 11/30/19] epinephrine 0.3 mg IM X1 #2 syringe 11/30/19 [Rx Last Taken Unknown] carbamazepine 200 mg tablet 200 mg PO BID tab 08/20/20 [History Last Taken Unknown] meclizine 12.5 mg tablet 12.5 mg PO BID tab 08/20/20 [History Last Taken Unknown] pravastatin 20 mg tablet 20 mg PO DAILY tab 08/20/20 [History Last Taken Unknown] quetiapine 400 mg tablet 400 mg PO DAILY tab 08/20/20 [History Last Taken Unknown] zaleplon 5 mg capsule 5 mg PO QHS PRN PRN cap 08/20/20 [History Last Taken Unknown] Allergy/AdvReac Type Severity Reaction Status Date / Time bee venom protein (honey bee) Allergy Anaphylaxis Verified 09/28/20 23:55 chocolate flavor Allergy Swelling Verified 09/28/20 23:55 clindamycin Allergy Rash Verified 09/28/20 23:55 iodine Allergy Rash Verified 09/28/20 23:55 morphine Allergy SLOWS HR Verified 09/28/20 23:55 Penicillins Allergy Rash Verified 09/28/20 23:55 Sulfa (Sulfonamide Allergy Rash Verified 09/28/20 23:55 Antibiotics) sulfamethoxazole Allergy Rash Verified 09/28/20 23:55 [From Bactrim] tramadol Allergy Rash Verified 09/28/20 23:55 trimethoprim [From Bactrim] Allergy Rash Verified 09/28/20 23:55 Iodinated Contrast Media AdvReac Diarrhea Verified 09/28/20 23:55 [CONTRASTS] prednisone AdvReac Rash Verified 09/28/20 23:55 red dye AdvReac Diarrhea Verified 09/28/20 23:55 Surgical History History cyst removed left face History of tonsillectomy History evert left femur history steel plate inserted in skull Social History Smoking Status: Current every day smoker tobacco type: cigarettes alcohol intake: current alcohol intake frequency: 3 or more drinks per day Alcohol type: beer substance use type: marijuana ROS ROS ED Constitutional Constitutional ED: Denies chills or fever(s) Eyes Eyes: Denies change in vision ENT ENT ED: Reports other Details: Throat tightness ; Denies sore throat Cardiovascular Cardiovascular: Denies chest pain Respiratory/Chest Respiratory/Chest: Denies cough or dyspnea Gastrointestinal Gastrointestinal: Denies abdominal pain, diarrhea, nausea or vomiting Genitourinary Genitourinary ED: Denies dysuria Musculoskeletal Musculoskeletal: Denies back pain Integumentary Reports rash Neurologic Neurologic: Denies headache(s) or weakness Psychiatric Psychiatric: Denies anxiety or depression Endocrine Endocrinology: Denies polydipsia or polyuria Allergic/Immunologic Allergic/Immunologic ED: Denies urticaria EXAM Physical Exam Narrative Exam Narrative: Patient speaks with a strong voice and is tolerating secretions well. Const Vital Signs: 09/28/20 23:51 09/28/20 23:52 09/29/20 00:15 Temperature 98.8 F Temperature Source Oral Pulse Rate 76 Respiratory Rate 18 16 Respiratory Effort Normal Respiratory Pattern Normal Blood Pressure 144/86 H Blood Pressure Mean 105 Pulse Ox 98 Oxygen Delivery Method Room Air 09/29/20 01:41 Temperature Temperature Source Pulse Rate Respiratory Rate Respiratory Effort Respiratory Pattern Blood Pressure 166/65 H Blood Pressure Mean Pulse Ox Oxygen Delivery Method Positive well nourished and well developed General Appearance ED: well developed HEENT Reports normocephalic and head/scalp atraumatic Eyes PERRL and EOMs intact bilaterally Neck supple Chest Wall inspection of chest normal and palpation of chest normal Resp normal respiratory effort and clear to auscultation bilaterally Cardio regular rate and regular rhythm GI normal to inspection, nondistended, normoactive bowel sounds Palpation: soft Extremity normal to inspection Extremity Narrative: 3 small areas of erythema noted on the right upper extremity. 1 lesion noted on the right leg. All of these lesions appear to be consistent with folliculitis or small focal bites. No sign of infection. Neuro oriented x3 and no sensory deficits noted Sensorium / Orientation: alert Motor Exam: strength 5/5 throughout Psych mental status grossly normal MDM MDM MDM Narrative Medical decision making narrative: Patient was given Solu-Medrol and Pepcid. He was given a dose of Toradol for pain. He was observed in the emergency room. Treatment and Re-Evaluation Comments:: On repeat evaluation patient sleeping comfortably. He easily awakens. He states his throat is significantly improved. He will be discharged home to continue Benadryl as needed. Discharge Plan Triage Chief Complaint: Bite ED Provider: Chani Mcclain Dx/Rx/DC Orders Clinical Impression: Allergic reaction Instructions: ED General Allergic Reactions Prescriptions: No Action pravastatin 20 mg tablet 20 mg PO DAILY RF: 0 carbamazepine 200 mg tablet 200 mg PO BID RF: 0 meclizine 12.5 mg tablet 12.5 mg PO BID RF: 0 quetiapine 400 mg tablet 400 mg PO DAILY RF: 0 zaleplon 5 mg capsule 5 mg PO QHS PRN PRN (Reason: Insomnia) RF: 0 albuterol sulfate 1 INHALER inhaler 2 puff inhalation Q4H PRN PRN (Reason: Wheezing) Qty: 1 RF: 0 epinephrine 0.3 MG syringe 0.3 mg IM X1 Qty: 2 RF: 1 Primary Care Provider: Sen Ventura Referrals: Sen Ventura MD [Primary Care Provider] - As Needed Disposition Disposition: Home, Self Care Discharge Date/Time: 09/29/20 01:43
[2020-09-29 01:41] VITALS: BP 166/65
== END 2020-09-29 01:43 | disposition home or self-care (01) ==
PROVIDERS: Emergency Provider Emergency Medicine; PCP Family Medicine
DX: T63.481A Toxic effect of venom of other arthropod, accidental (unintentional), initial encounter (principal); F17.210 Nicotine dependence, cigarettes, uncomplicated; F12.90 Cannabis use, unspecified, uncomplicated; R56.9 Unspecified convulsions; Z79.899 Other long term (current) drug therapy
CPT/HCPCS: 96374; 96375; 99283; A4216; J3490

== ENCOUNTER 2020-12-25 11:17 | Emergency (ER) | payer MEDICAID, SELFPAY ==
[2020-12-25 11:18] VITALS: BP 122/88; PULSE 65; RESP 12; TEMP 36.4; O2SAT 100; BMI 24.7
--- NOTE | 2020-12-25 11:36 | VDLE_ITS ---
Reason For Study: Swelling RIGHT GSV is normal. CFV is compressible, spontaneous, phasic, competent and demonstrates normal augmentation. FV is compressible, spontaneous, phasic, competent and demonstrates normal augmentation. POP V is compressible, spontaneous, phasic, competent and demonstrates normal augmentation. T/P Trunk is compressible. PTV is compressible. RT PerV is compressible. Procedure This is a venous duplex using B-mode, color flow and spectral Doppler. Exam performed portable in ED. A preliminary report was called and/or faxed to [facility]. VL/Venous Duplex US, Unilateral Interpretation Summary There is no evidence of right lower extremity deep vein thrombosis. Right great saphenous vein appears patent and compressible segmentally. Ordering Physician: Chani Mcclain Referring Physician: Sen Ventura Performed By: Joann Wells RVT
--- NOTE | 2020-12-25 11:37 | EKG12_ITS ---
Test Reason : LOWE EXTPAIN Blood Pressure : / mmHG Vent. Rate : 047 BPM Atrial Rate : 047 BPM P-R Int : 148 ms QRS Dur : 094 ms QT Int : 412 ms P-R-T Axes : 032 022 036 degrees QTc Int : 364 ms Sinus bradycardia Otherwise normal ECG Confirmed by CECELIA PALACIOS, GUERO ([id number]), makeup editor BECKA IVERSON ([id number]) on 12/28/2020 10:03:22 AM Referred By: HUY Confirmed By:GUERO RAI MD
--- NOTE | 2020-12-25 11:38 | EDS_ITS ---
HPI History of Present Illness Chief Complaint: Lower Extremity Injury Detail of Chief Complaint: Right leg swelling, chest pain, shortness of breath Informant: patient Onset/Context/Timing Onset: Days Context: Gradual Onset Current Severity: Moderate Maximum Severity: Moderate Narrative Narrative: Patient presents secondary to right leg edema for the past couple days. No recent injury. Patient also reports chest heaviness and shortness of breath. No risk factors for DVT or PE. [facility] Medical History Alcoholism History of head injury Hx of dizziness Marijuana use Neuropathy Seizures Home Medications albuterol sulfate 2 puff INHALATION Q4H PRN PRN #1 inhaler 06/20/19 [Rx Last Taken 11/30/19] epinephrine 0.3 mg IM X1 #2 syringe 11/30/19 [Rx Last Taken Unknown] carbamazepine 200 mg tablet 200 mg PO BID tab 08/20/20 [History Last Taken Unknown] meclizine 12.5 mg tablet 12.5 mg PO BID tab 08/20/20 [History Last Taken U nknown] pravastatin 20 mg tablet 20 mg PO DAILY tab 08/20/20 [History Last Taken Unknown] quetiapine 400 mg tablet 400 - 800 mg PO DAILY tab 08/20/20 [History Last Taken Unknown] zaleplon 5 mg capsule 5 mg PO QHS PRN PRN cap 08/20/20 [History Last Taken Unknown] baclofen 10 mg PO BID 12/25/20 [History Last Taken Unknown] Allergy/AdvReac Type Severity Reaction Status Date / Time bee venom protein (honey bee) Allergy Anaphylaxis Verified 12/25/20 11:21 chocolate flavor Allergy Swelling Verified 12/25/20 11:21 clindamycin Allergy Rash Verified 12/25/20 11:21 iodine Allergy Rash Verified 12/25/20 11:21 Penicillins Allergy Rash Verified 12/25/20 11:21 Sulfa (Sulfonamide Allergy Rash Verified 12/25/20 11:21 Antibiotics) sulfamethoxazole Allergy Rash Verified 12/25/20 11:21 [From Bactrim] tramadol Allergy Rash Verified 12/25/20 11:21 trimethoprim [From Bactrim] Allergy Rash Verified 12/25/20 11:21 Iodinated Contrast Media AdvReac Diarrhea Verified 12/25/20 11:21 [CONTRASTS] prednisone AdvReac Rash Verified 12/25/20 11:21 red dye AdvReac Diarrhea Verified 12/25/20 11:21 Surgical History History cyst removed left face History of tonsillectomy History evert left femur history steel plate inserted in skull Social History Smoking Status: Current every day smoker tobacco type: cigarettes alcohol intake: current alcohol intake frequency: 3 or more drinks per day Alcohol type: beer substance use type: marijuana ROS ROS ED Constitutional Constitutional ED: Denies chills or fever(s) Eyes Eyes: Denies change in vision ENT ENT ED: Denies sore throat Cardiovascular Cardiovascular: Reports chest pain Respiratory/Chest Respiratory/Chest: Reports dyspnea; Denies cough Gastrointestinal Gastrointestinal: Denies abdominal pain, diarrhea, nausea or vomiting Genitourinary Genitourinary ED: Denies dysuria Musculoskeletal Musculoskeletal: Reports other Details: Right leg edema ; Denies back pain Integumentary Denies rash Neurologic Neurologic: Denies headache(s) or weakness Allergic/Immunologic Allergic/Immunologic ED: Denies urticaria EXAM Physical Exam Const Vital Signs: 12/25/20 11:18 12/25/20 11:40 12/25/20 11:45 Temperature 97.5 F L Temperature Source Temporal Pulse Rate 65 52 L Respiratory Rate 12 14 Respiratory Pattern Normal Blood Pressure 122/88 H 120/88 H Blood Pressure Mean 99 98 Pulse Ox 100 98 Oxygen Delivery Method Room Air Room Air Positive well nourished and well developed General Appearance ED: well developed HEENT Reports normocephalic and head/scalp atraumatic Eyes PERRL and EOMs intact bilaterally Neck supple Chest Wall inspection of chest normal and palpation of chest normal Resp normal respiratory effort and clear to auscultation bilaterally Cardio regular rate and regular rhythm GI normal to inspection, nondistended, normoactive bowel sounds Palpation: soft Extremity Extremity Narrative: Mild edema to the right calf and foot. No open wounds noted. No erythema or excessive warmth. Strong pulses. 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 Lab work, EKG, chest x-ray, venous ultrasound of the leg obtained. Lab Data Attestation: I reviewed the patient's lab results. Labs: Laboratory Results - last 24 hr 12/25/20 12/25/20 12/25/20 11:45 11:45 11:45 WBC 7.4 RBC 4.10 L Hgb 12.8 L Hct 38.5 L MCV 93.9 MCH 31.2 MCHC 33.2 RDW Std Deviation 42.8 RDW Coeff of Mable 12.3 Plt Count 264 MPV 10.4 Immature Gran % (Auto) 0.500 Neut % (Auto) 58.3 Lymph % (Auto) 32.2 [place] % (Auto) 6.1 Eos % (Auto) 2.2 Baso % (Auto) 0.7 Absolute Neuts (auto) 4.3 Absolute Lymphs (auto) 2.38 Nucleated RBC % 0 D-Dimer Quant (PE/DVT) 0.36 Sodium 142 Potassium 3.9 Chloride 113 H Carbon Dioxide 25.0 Anion Gap 4 L BUN 18 Creatinine 0.91 Estim Creat Clear Calc 116.99 Est GFR (MDRD) Af Amer 122 Est GFR (MDRD) Non-Af 101 BUN/Creatinine Ratio 19.8 Glucose 94 Calcium 8.8 Troponin I High Sens 4 Radiography Chest X-Ray - ED: 1 View, Read by ED Physician, Normal, Heart, Lungs and Mediastinum Diagnostic Testing: Radiology Impression Venous Doppler Study 12/25/20 11:36 Interpretation Summary There is no evidence of right lower extremity deep vein thrombosis. Right great saphenous vein appears patent and compressible segmentally. Ordering Physician: Chani Mcclain Referring Physician: Sen Ventura Performed By: Joann Wells RVT Chest X-Ray 12/25/20 11:55 IMPRESSION: There are no acute findings. Electronically Signed: Fletcher Melo MD at 12:27 EDT , Service support , EKG Initial EKG: Attestation: I personally reviewed and interpreted this EKG as follows: Interpretation: Sinus Bradycardia (Sinus bradycardia at 47 bpm. No acute ischemia.) Treatment and Re-Evaluation Comments:: Lab work unremarkable including negative D-dimer and troponin. Venous ultrasound is normal. Test results discussed with patient and family at bedside. Arcadio wrap applied to give light compression. Appropriate elevation measures were discussed. Patient is to follow-up with PCP. Discharge Plan Triage Chief Complaint: Lower Extremity Injury Other Complaint: Edema ED Provider: Chani Mcclain Dx/Rx/DC Orders Clinical Impression: Edema Instructions: ED Peripheral Edema, Unilateral Prescriptions: No Action pravastatin 20 mg tablet 20 mg PO DAILY RF: 0 carbamazepine 200 mg tablet 200 mg PO BID RF: 0 meclizine 12.5 mg tablet 12.5 mg PO BID RF: 0 quetiapine 400 mg tablet 400 - 800 mg PO DAILY RF: 0 zaleplon 5 mg capsule 5 mg PO QHS PRN PRN (Reason: Insomnia) RF: 0 albuterol sulfate 1 INHALER inhaler 2 puff inhalation Q4H PRN PRN (Reason: Wheezing) Qty: 1 RF: 0 epinephrine 0.3 MG syringe 0.3 mg IM X1 Qty: 2 RF: 1 baclofen 10 mg Tablet 10 mg PO BID RF: 0 Stand Alone Forms: Work Status Form Primary Care Provider: Sen Ventura Referrals: Sen Ventura MD [Primary Care Provider] - 1 Week if not improving Disposition Disposition: Home, Self Care
[2020-12-25 11:45] VITALS: BP 120/88; PULSE 52; RESP 14; O2SAT 98
--- NOTE | 2020-12-25 11:55 | RAD_ITS ---
STUDY: X-RAY CHEST REASON FOR EXAM: Male, 35 years old. CHEST PAIN lower extremity edema COPD sob TECHNIQUE: XR Chest 1 View COMPARISON: None FINDINGS: There is no demonstrated pleural abnormality. Normal size heart. Normal mediastinum and chhaya. Normal visualized pulmonary arteries. Normal visualized aortic arch and descending thoracic aorta. Normal visualized thoracic spine. Normal visualized ribs, clavicles, and shoulders. There is no demonstrated abnormality of the visualized soft tissue structures of the upper abdomen. RAD/Chest 1 View (Portable) IMPRESSION: There are no acute findings. Electronically Signed: Fletcher Melo MD at 12:27 EDT , Service support ,
[2020-12-25 12:01] LABS: Absolute Lymphocyte Count 2.38 X10^3/uL (0.83-4.51); Absolute Neutrophil Count 4.3 X10^3/uL (2.0-7.7); Basophil# 0.05 X10^3/uL; Basophil% 0.7 % (0-1); Eosinophil# 0.16 X10^3/uL; Eosinophils% 2.2 % (0-5); Hematocrit 38.5 % (40-54); Hemoglobin 12.8 g/dL (13.0-16.5); Lymphocyte # 2.38 X10^3/ul (0.83-4.51); Lymphocyte % 32.2 % (19-41); Mean Corp Hgb Conc 33.2 g/dL (32-36); Mean Corpuscular Hgb 31.2 pg (27.0-32.0); Mean Corpuscular Volume 93.9 fL (80-94); Mean Platelet Vol. 10.4 fl (6.2-12.0); Monocyte# 0.45 X10^3/uL; Monocyte% 6.1 % (0-10); NRBC Flagged by Analyzer 0 % (0-5); Neutrophil # 4.31 X10^3/uL (2.7-7.7); Neutrophil % 58.3 % (47-70); Platelet Count 264 K/mm3 (150-450); RBC Distribution Width CV 12.3 % (11.6-14.6); RBC Distribution Width SD 42.8 fl (35.1-43.9); White Blood Count 7.4 K/mm3 (4.4-11.0)
[2020-12-25 12:06] LABS: D-Dimer Quantitative (DVT/PE) 0.36 FEU/ug/m (0.27-0.49)
[2020-12-25 12:17] LABS: Anion Gap 4 (5-15); BUN 18 mg/dL (7-18); BUN/Creat Ratio 19.8 RATIO (10-20); Calcium,Total 8.8 mg/dL (8.5-10.1); Chloride 113 mmol/L (98-107); Creatinine, Serum 0.91 mg/dL (0.70-1.30); EST Glomerular Filtration Rate 101 mL/min (>60); Est Glom Filt Rate - Afr Amer 122 mL/min (>60); Estimated Creatinine Clearance 116.99 ml/min; Glucose 94 mg/dL (74-106); Potassium 3.9 mmol/L (3.5-5.1); Sodium Level 142 mmol/L (136-145); Troponin-I HS 4 pg/mL (3.0-78.0)
[2020-12-25 13:46] VITALS: BP 118/67; PULSE 71; RESP 15; O2SAT 95
== END 2020-12-25 13:46 | disposition home or self-care (01) ==
PROVIDERS: Emergency Provider Emergency Medicine; PCP Family Medicine
DX: R60.0 Localized edema (principal); F17.210 Nicotine dependence, cigarettes, uncomplicated; Z79.899 Other long term (current) drug therapy; Z79.52 Long term (current) use of systemic steroids
CPT/HCPCS: 71045; 80048; 84484; 85025; 85379; 93005; 93971; 99285

== ENCOUNTER 2021-01-22 16:49 | Emergency (ER) | payer MEDICAID, SELFPAY ==
[2021-01-22 16:50] VITALS: BP 115/81; PULSE 78; RESP 16; TEMP 37; O2SAT 99; BMI 23.3
--- NOTE | 2021-01-22 17:13 | RAD_ITS ---
STUDY: X-RAY - RIGHT FOOT CLINICAL: Male, 35 years old. DROPPED PIECE OF WOOD ON RIGHT FOOT JUST BELOW BIG TOE. TECHNIQUE: 3 view(s) of the foot. COMPARISON: None. FINDINGS: A 2.3 mm linear radiopaque density projects in the soft tissues between the distal shafts of the third and fourth metatarsal bones, however this is only seen on one view and may be extraneous to the patient or related to clothing artifact. No visualized fractures. Normal talus, calcaneus, and tarsal bones. Normal visualized subtalar, talonavicular, calcaneocuboid, tarsal and tarsometatarsal articulations. Normal metatarsi. Normal metatarsophalangeal joint of the great toe. Normal tibial and fibular sesamoid bones. Normal interphalangeal joint of the great toe. Normal phalanges of the great toe. Normal second through fifth metatarsophalangeal joints. Normal interphalangeal joints and phalanges of the lesser toes. The soft tissue structures are unremarkable. There is no demonstrated fracture. RAD/Foot min 3 Views IMPRESSION: A 2.3 mm linear radiopaque density projects in the soft tissues between the distal shafts of the third and fourth metatarsal bones, however this is only seen on one view and may be extraneous to the patient or related to clothing artifact. Electronically Signed: Joo Terrell MD at 17:51 EDT , Service support ,
--- NOTE | 2021-01-22 19:19 | EDS_ITS ---
HPI History of Present Illness Chief Complaint: Lower Extremity Injury Informant: patient Narrative Narrative: 35-year-old male presents the emergency room with right foot injury. Patient states he dropped a heavy board on his foot just proximal to his steel of his boots. He states it began bruising last night and has worsened. Pain with putting shoes on. [facility] Medical History Alcoholism History of head injury Hx of dizziness Marijuana use Neuropathy Seizures Home Medications albuterol sulfate 2 puff INHALATION Q4H PRN PRN #1 inhaler 06/20/19 [Rx Last Taken 11/30/19] epinephrine 0.3 mg IM X1 #2 syringe 11/30/19 [Rx Last Taken Unknown] carbamazepine 200 mg tablet 200 mg PO BID tab 08/20/20 [History Last Taken Unknown] meclizine 12.5 mg tablet 12.5 mg PO BID tab 08/20/20 [History Last Taken Unknown] pravastatin 20 mg tablet 20 mg PO DAILY tab 08/20/20 [History Last Taken Unknown] quetiapine 400 mg tablet 400 - 800 mg PO DAILY tab 08/20/20 [History Last Taken Unknown] zaleplon 5 mg capsule 5 mg PO QHS PRN PRN cap 08/20/20 [History Last Taken Unknown] baclofen 10 mg PO BID 12/25/20 [History Last Taken Unknown] Allergy/AdvReac Type Severity Reaction Status Date / Time bee venom protein (honey bee) Allergy Anaphylaxis Verified 01/22/21 16:50 chocolate flavor Allergy Swelling Verified 01/22/21 16:50 clindamycin Allergy Rash Verified 01/22/21 16:50 iodine Allergy Rash Verified 01/22/21 16:50 Penicillins Allergy Rash Verified 01/22/21 16:50 Sulfa (Sulfonamide Allergy Rash Verified 01/22/21 16:50 Antibiotics) sulfamethoxazole Allergy Rash Verified 01/22/21 16:50 [From Bactrim] tramadol Allergy Rash Verified 01/22/21 16:50 trimethoprim [From Bactrim] Allergy Rash Verified 01/22/21 16:50 Iodinated Contrast Media AdvReac Diarrhea Verified 01/22/21 16:50 [CONTRASTS] prednisone AdvReac Rash Verified 01/22/21 16:50 red dye AdvReac Diarrhea Verified 01/22/21 16:50 Surgical History History cyst removed left face History of tonsillectomy History evert left femur history steel plate inserted in skull Social History Smoking Status: Current every day smoker tobacco type: cigarettes alcohol intake: current alcohol intake frequency: 3 or more drinks per day Alcohol type: beer substance use type: marijuana ROS ROS ED Constitutional Constitutional ED: Denies chills or weight loss Eyes Eyes: Denies change in vision or diplopia ENT ENT ED: Denies ear pain, rhinorrhea or sore throat Cardiovascular Cardiovascular: Denies chest pain, orthopnea, palpitations or racing heartbeat Respiratory/Chest Respiratory/Chest: Denies cough, dyspnea or orthopnea Gastrointestinal Gastrointestinal: Denies abdominal pain, diarrhea, nausea or vomiting Genitourinary Genitourinary ED: Denies dysuria, hematuria or urinary frequency Musculoskeletal Musculoskeletal: Reports other Details: See HPI ; Denies arthralgias or myalgias Integumentary Denies abscess or rash Neurologic Neurologic: Denies headache(s) or weakness Psychiatric Psychiatric: Denies anxiety, depression, suicidal ideation or suicidal thoughts Endocrine Endocrinology: Denies polydipsia, polyphagia or polyuria Allergic/Immunologic Allergic/Immunologic ED: Denies mouth swelling, tongue swelling or urticaria EXAM Physical Exam Const Vital Signs: 01/22/21 16:50 Temperature 98.6 F Temperature Source Temporal Pulse Rate 78 Respiratory Rate 16 Blood Pressure 115/81 H Blood Pressure Mean 92 Pulse Ox 99 Oxygen Delivery Method Room Air Positive well nourished and well developed General Appearance ED: well developed HEENT Reports normocephalic, head/scalp atraumatic and moist mucous membranes atraumatic Eyes PERRL and EOMs intact bilaterally Neck no lymphadenopathy, supple and no JVD Resp normal respiratory effort and clear to auscultation bilaterally Cardio regular rate, regular rhythm and no murmurs GI normal to inspection, nondistended, normoactive bowel sounds and non-tender Palpation: soft Back/Spine no CVA tenderness and normal ROM Extremity Extremity Narrative: There is purple ecchymosis on the dorsum of the right great toe extending up onto the distal first MCP joint. General Extremety ED: Negative for edema General Extremity: Negative for edema Neuro oriented x3 and CN's II-XII intact bilaterally Sensorium / Orientation: alert Motor Exam: strength 5/5 throughout Psych mental status grossly normal Mood & Affect: Negative for depressed or tearful Skin no rashes or lesions noted and no wounds MDM MDM MDM Narrative Medical decision making narrative: My interpretation of the plain films of the right foot is no acute fracture. Radiology concurs. They see a 2.3 mm linear density only seen on one view. As there is no trauma or physical exam findings in this area I think this is artifactual. When I told the patient that he did not have a fracture he told me that I do not know what I am doing that he hates this hospital. He states that he has had a prior break on his left foot and this feels exactly the same. He states he is wasted enough of his life here at the hospital and is leaving. He was offered a postop shoe and he told me not to bother because he is just leaving it. Radiography Diagnostic Testing: Clinical Impression(s) from Imaging Studies Foot X-Ray 01/22/21 17:13 IMPRESSION: A 2.3 mm linear radiopaque density projects in the soft tissues between the distal shafts of the third and fourth metatarsal bones, however this is only seen on one view and may be extraneous to the patient or related to clothing artifact. Electronically Signed: Joo Terrell MD at 17:51 EDT , Service support , Discharge Plan Triage Chief Complaint: Lower Extremity Injury ED Provider: Adrian Hernandez Dx/Rx/DC Orders Clinical Impression: Contusion of foot, right Instructions: Bone Contusion Prescriptions: No Action pravastatin 20 mg tablet 20 mg PO DAILY RF: 0 carbamazepine 200 mg tablet 200 mg PO BID RF: 0 meclizine 12.5 mg tablet 12.5 mg PO BID RF: 0 quetiapine 400 mg tablet 400 - 800 mg PO DAILY RF: 0 zaleplon 5 mg capsule 5 mg PO QHS PRN PRN (Reason: Insomnia) RF: 0 albuterol sulfate 1 INHALER inhaler 2 puff inhalation Q4H PRN PRN (Reason: Wheezing) Qty: 1 RF: 0 epinephrine 0.3 MG syringe 0.3 mg IM X1 Qty: 2 RF: 1 baclofen 10 mg Tablet 10 mg PO BID RF: 0 Primary Care Provider: Sen Ventura Referrals: Sen Ventura MD [Primary Care Provider] - 10-14 Days if not better Disposition Disposition: Home, Self Care Discharge Date/Time: 01/22/21 19:19
== END 2021-01-22 19:19 | disposition home or self-care (01) ==
PROVIDERS: Emergency Provider Emergency Medicine; PCP Family Medicine
DX: S90.31XA Contusion of right foot, initial encounter (principal); F17.210 Nicotine dependence, cigarettes, uncomplicated; F12.90 Cannabis use, unspecified, uncomplicated; R56.9 Unspecified convulsions; X58.XXXA Exposure to other specified factors, initial encounter; Z79.899 Other long term (current) drug therapy
CPT/HCPCS: 73630; 99282

== ENCOUNTER → 2021-03-27 06:34 | Outpatient (CLI) | payer MEDICAID, SELFPAY ==
[2020-08-20 09:01] VITALS: BMI 26.9
--- NOTE | 2021-03-27 14:55 | NEURO ---
NCS and/or EMG Patient Report Ordering Doctor: Rock Durbin DATE OF SERVICE: 03/27/21 Ajay presents for electrodiagnostic testing of the upper limbs. Reports numbness and tingling in both hands. Electrodiagnostic findings: Median motor nerve demonstrates normal distal latency, amplitude and conduction velocity bilaterally. Normal ulnar motor response bilaterally. Normal median and ulnar F waves. Sensory responses are within normal limits. On needle EMG, all muscles tested in the upper limbs as well as cervical paraspinal showed no evidence of denervation with normal motor unit action potentials. Electrodiagnostic impression: This is a normal electrodiagnostic study in the upper limbs. There is no electrodiagnostic evidence for peripheral neuropathy, including carpal tunnel or cubital tunnel syndrome
== END ==
PROVIDERS: PCP Family Medicine; Referring Provider Orthopaedic Surgery; Visit Provider Orthopaedic Surgery
DX: G56.03 Carpal tunnel syndrome, bilateral upper limbs (principal)
CPT/HCPCS: 95886; 95912

== ENCOUNTER 2021-04-18 15:03 | Outpatient (CLI) | payer MEDICAID, SELFPAY | END 2021-04-18 23:59 | disposition short-term general hospital (02) | LOC: LABSPEC 15:05 | PROVIDERS: PCP Family Medicine; Visit Provider Otolaryngology | DX: H93.8X1 Other specified disorders of right ear (principal) | CPT/HCPCS: 87070; 87077; 87186; 87205 ==

== ENCOUNTER 2021-04-25 15:25 | Outpatient (CLI) | payer MEDICAID, SELFPAY | END 2021-04-25 23:59 | disposition short-term general hospital (02) | PROVIDERS: PCP Family Medicine; Visit Provider Otolaryngology | DX: Q18.1 Preauricular sinus and cyst (principal) | CPT/HCPCS: 87070; 87075; 87077; 87186; 87205 ==

== ENCOUNTER 2021-09-06 09:32 | Emergency (ER) | payer MEDICAID, SELFPAY ==
[2021-09-06 09:32] VITALS: BP 156/99; PULSE 70; RESP 16; TEMP 36.7; O2SAT 99; BMI 24.3
--- NOTE | 2021-09-06 09:48 | RAD_ITS ---
STUDY: X-RAY - RIGHT HAND REASON FOR EXAM: Male, 35 years old. Fall. Pain. TECHNIQUE: 3 view(s) of the hand. COMPARISON: 08/20/2020. FINDINGS: Normal radiocarpal articulation. Normal distal radioulnar joint. Normal visualized carpal bones. Normal carpal articulations Normal carpometacarpal articulation of the thumb. Normal second through fifth carpometacarpal joints. Stable plate and screw fixation of the fifth metacarpal. Normal metacarpophalangeal joint of the thumb. Normal interphalangeal joint of the thumb. Normal proximal and distal phalanges of the thumb. Normal metacarpophalangeal joints of the second through fifth fingers. Normal proximal and distal interphalangeal joints of the second through fifth fingers. Normal phalanges of the second through fifth fingers. The soft tissue structures are unremarkable. RAD/Hand Min 3 Views IMPRESSION: Stable ORIF of fifth metacarpal. No acute osseous abnormality. Electronically Signed: German Calle MD at 10:26 EDT ,
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
== END 2021-09-06 10:42 | disposition home or self-care (01) ==
PROVIDERS: Emergency Provider Student in an Organized Health Care Education/Training Program; PCP Family Medicine; Visit Provider Student in an Organized Health Care Education/Training Program
DX: S60.221A Contusion of right hand, initial encounter (principal); F17.210 Nicotine dependence, cigarettes, uncomplicated; F12.90 Cannabis use, unspecified, uncomplicated; W19.XXXA Unspecified fall, initial encounter
CPT/HCPCS: 73130; 99282

== ENCOUNTER 2021-09-20 09:13 | Emergency (ER) | payer MEDICAID, SELFPAY ==
[2021-09-20 09:14] VITALS: BP 125/92; PULSE 96; RESP 17; TEMP 36.7; O2SAT 100; BMI 24.3
--- NOTE | 2021-09-20 09:31 | RAD_ITS ---
STUDY: X-RAY - LEFT KNEE REASON FOR EXAM: Male, 35 years old. Pain following injury. TECHNIQUE: 4 view(s) of the knee. COMPARISON: None. FINDINGS: Normal visualized distal femur. There is evidence of a 1.6 mm displaced fracture of the lateral tibial plateau. Normal proximal tibiofibular articulation. Normal medial femorotibial compartment. Normal lateral femorotibial compartment. Normal patellofemoral articulation. Joint effusion. RAD/Knee 4 or More Views IMPRESSION: 1.6 mm depressed lateral tibial plateau fracture. Small joint effusion. Electronically Signed: John Colón MD at 9:59 EDT ,
--- NOTE | 2021-09-20 09:51 | CT_ITS ---
STUDY: CT LEFT KNEE WITHOUT CONTRAST REASON FOR EXAM: Male, 35 years old. Left knee pain, tibial plateau fracture RADIATION DOSAGE (If Supplied By Facility): CTDIvol = ( 19.84 ) mGy, DLP = ( 670.66 ) mGycm TECHNIQUE: Transaxial CT imaging of the knee was performed. Coronal and sagittal images were reformatted. Individualized dose optimization techniques were used for this CT. COMPARISON: Comparison is made with prior radiograph done earlier today. FINDINGS: Normal medial femoral condyle and medial tibial plateau. There is preservation of the articular joint space of the medial knee compartment. There is evidence of a mildly depressed fracture of the left tibial plateau posteriorly. The displacement measures 2 mm. There is preservation of the articular joint space of the lateral knee compartment. Normal proximal tibiofibular articulation. There is evidence of a joint effusion with lipohemarthrosis. The quadriceps tendon is grossly normal. The patellar tendon is grossly normal. Normal Hoffa''s fat pad. The soft tissues are unremarkable. CT/Extremity Lower without Contra IMPRESSION: Minimally depressed fracture of the lateral tibial plateau posteriorly measuring 2 mm. Joint effusion with lipohemarthrosis. Electronically Signed: John Colón MD at 10:44 EDT ,
[2021-09-20] MEDS: Ondansetron 4 MG/2 ML Vial IV (10:10)
[2021-09-20] MEDS: HYDROmorphone 0.5 MG/0.5 ML SYRINGE IV ×2 (10:11→11:58)
--- NOTE | 2021-09-20 12:40 | ED.VIS.LOWEX ---
HPI History of Present Illness Chief Complaint: Lower Extremity Injury Informant: patient Narrative Narrative: Patient is a 35-year-old male presenting with left knee pain and injury. He was trying to punch a gopher and stepped into the hole. He had immediate pain. No other injuries reported. Denies any numbness or tingling. Did not hit his head. No other complaints at this time. Has previously followed with [facility] in [place]. [facility] Medical History Alcoholism History of head injury Hx of dizziness Marijuana use Neuropathy Seizures Home Medications albuterol sulfate 90 mcg/actuation aerosol inhaler 2 puff inhalation Q4H PRN PRN Wheezing ##1 06/20/19 [Rx Last Taken 11/30/19] epinephrine 0.3 mg/0.3 mL injection, auto-injector 0.3 mg (0.3 mL) IM X1 ##2 11/30/19 [Rx Last Taken Unknown] carbamazepine 200 mg tablet 200 mg PO BID 08/20/20 [History Last Taken Unknown] meclizine 12.5 mg tablet 12.5 mg PO BID 08/20/20 [History Last Taken Unknown] pravastatin 20 mg tablet 20 mg PO DAILY 08/20/20 [History Last Taken Unknown] quetiapine 400 mg tablet 400 - 800 mg PO DAILY 08/20/20 [History Last Taken Unknown] zaleplon 5 mg capsule 5 mg PO QHS PRN PRN Insomnia 08/20/20 [History Last Taken Unknown] baclofen 10 mg tablet 10 mg PO BID 12/25/20 [History Last Taken Unknown] ondansetron HCl 4 mg tablet 4 mg PO Q6H PRN nausea and vomiting #15 tabs 09/20/21 [Rx Last Taken Unknown] oxycodone-acetaminophen 5 mg-325 mg tablet (Percocet) 1 tab PO Q6H PRN pain 5 days #20 tabs 09/20/21 [Rx Last Taken Unknown] Allergy/AdvReac Type Severity Reaction Status Date / Time bee venom protein (honey bee) Allergy Anaphylaxis Verified 09/20/21 09:14 chocolate flavor Allergy Swelling Verified 09/20/21 09:14 clindamycin Allergy Rash Verified 09/20/21 09:14 iodine Allergy Rash Verified 09/20/21 09:14 methylprednisolone Allergy Shortness Verified 09/20/21 09:14 of breath Penicillins Allergy Rash Verified 09/20/21 09:14 Sulfa (Sulfonamide Allergy Rash Verified 09/20/21 09:14 Antibiotics) sulfamethoxazole Allergy Rash Verified 09/20/21 09:14 [From Bactrim] tramadol Allergy Rash Verified 09/20/21 09:14 trimethoprim [From Bactrim] Allergy Rash Verified 09/20/21 09:14 Iodinated Contrast Media AdvReac Diarrhea Verified 09/20/21 09:14 [CONTRASTS] prednisone AdvReac Rash Verified 09/20/21 09:14 red dye AdvReac Diarrhea Verified 09/20/21 09:14 Surgical History History cyst removed left face History of tonsillectomy History evert left femur history steel plate inserted in skull Social History Smoking Status: Current every day smoker tobacco type: cigarettes alcohol intake: current alcohol intake frequency: 3 or more drinks per day Alcohol type: beer substance use type: marijuana ROS ROS ED Constitutional Constitutional ED: Denies chills or fever(s) ENT ENT ED: Denies rhinorrhea or sore throat Cardiovascular Cardiovascular: Denies chest pain Respiratory/Chest Respiratory/Chest: Denies cough Gastrointestinal Gastrointestinal: Denies abdominal pain or vomiting Musculoskeletal Musculoskeletal: Reports other Details: left knee pain Integumentary Denies Abrasions or rash Neurologic Neurologic: Denies headache(s), paresthesias or weakness Hematologic/Lymphatic Hematologic/Lymphatic: Denies easy bleeding or easy bruising EXAM Physical Exam Const Vital Signs: 09/20/21 09:14 Temperature 98.1 F Temperature Source Temporal Pulse Rate 96 Respiratory Rate 17 Blood Pressure 125/92 H Blood Pressure Mean 103 Pulse Ox 100 Oxygen Delivery Method Room Air Positive well nourished and well developed Constitutional Narrative: Distress secondary to pain General Appearance ED: well developed HEENT normocephalic and atraumatic Eyes PERRL Neck full ROM and supple Chest Wall inspection of chest normal Resp normal respiratory effort and no retractions Cardio regular rate, regular rhythm and no murmurs Cardio Narrative: 2+ left DP pulse GI non-tender and non-distended Extremity Extremity Narrative: Decreased range of motion of the left knee secondary to pain. No pain of the hip. Pelvis is stable. No pain with logroll of the leg. Patient has diffuse tenderness of the inferior aspect of the knee along the left tibial tuberosity. No bony tenderness of the ankle. Able to wiggle toes and move ankle. Is only able to raise a straight leg off the bed by approximately 1 cm states he has too much pain. Patella is in normal position. Mild joint effusion appreciated on exam. Neuro oriented x3, moves all extremities and no sensory deficits noted Psych mental status grossly normal Mood & Affect: anxious Skin Lesions: no lesions Trauma: Negative for abrasion MDM MDM MDM Narrative Medical decision making narrative: Patient is evaluated for left knee injury. Particle x-ray obtained today is concerning for tibial plateau fracture interpreted by myself and then radiology. CT is added on which is also consistent with a depressed tibial plateau fracture. Case is discussed with Ortho on-call, Dr. Weber who recommends follow-up on Thursday. Patient is given a copy of his images in case he wants to follow-up with a different orthopedist through [facility]. He is given 2 doses of IV Dilaudid for pain control in the ER and then oral oxycodone. He is given a dose of IV Zofran. Will be discharged home with a prescription for Zofran as well as Percocet. He is neuro vastly intact and his compartments are soft. He is counseled on the importance of nonweightbearing status and is given crutches. He is offered a walker but does not want 1. Radiography Diagnostic Testing: Clinical Impression(s) from Imaging Studies Knee X-Ray 09/20/21 09:31 IMPRESSION: 1.6 mm depressed lateral tibial plateau fracture. Small joint effusion. Electronically Signed: John Colón MD at 9:59 EDT , Lower Extremity CT 09/20/21 09:51 IMPRESSION: Minimally depressed fracture of the lateral tibial plateau posteriorly measuring 2 mm. Joint effusion with lipohemarthrosis. Electronically Signed: John Colón MD at 10:44 EDT , Discharge Plan Triage Chief Complaint: Lower Extremity Injury ED Provider: Jennifer Martinez Dx/Rx/DC Orders Clinical Impression: Closed fracture of left tibial plateau Instructions: Crutches Standing No Weight Steps, ED Fracture, Lower Extremity Prescriptions: New oxycodone-acetaminophen [Percocet] 5-325 mg tablet 1 tab PO Q6H PRN (Reason: pain) 5 Days Qty: 20 0RF ondansetron HCl 4 mg tablet 4 mg PO Q6H PRN (Reason: nausea and vomiting) Qty: 15 0RF No Action pravastatin 20 mg tablet 20 mg PO DAILY Label Comments: Take 1 tablet by mouth daily at bedtime. carbamazepine 200 mg tablet 200 mg PO BID Label Comments: TAKE 2 TABLETS BY MOUTH TWICE DAILY meclizine 12.5 mg tablet 12.5 mg PO BID quetiapine 400 mg tablet 400 - 800 mg PO DAILY zaleplon 5 mg capsule 5 mg PO QHS PRN PRN (Reason: Insomnia) Label Comments: Take 1 Capsule By Oral Route 1 time per day at bedtime prn. This is a 30 day supply. albuterol sulfate 1 INHALER inhaler 2 puff inhalation Q4H PRN PRN (Reason: Wheezing) Qty: 1 0RF epinephrine 0.3 MG syringe 0.3 mg IM X1 Qty: 2 1RF Rx Instructions: Use as directed, as needed for stings baclofen 10 mg Tablet 10 mg PO BID Primary Care Provider: Sen Ventura Referrals: Jun Groves DO [STAFF PHYSICIAN] - (Call later today or Thursday to schedule an appointment for Thursday or soon as possible) Sen Ventura MD [Primary Care Provider] - Activity Restrictions/Additional Instructions: Ice the area. Elevate is much as possible. Do not put any weight on your leg. Wear the immobilizer is much as possible. Disposition Disposition: Home, Self Care
[2021-09-20] MEDS: oxyCODONE 5 MG Tablet PO (12:58)
== END 2021-09-20 13:00 | disposition home or self-care (01) ==
PROVIDERS: Emergency Provider Emergency Medicine; PCP Family Medicine; Visit Provider Emergency Medicine
DX: S82.142A Displaced bicondylar fracture of left tibia, initial encounter for closed fracture (principal); F12.90 Cannabis use, unspecified, uncomplicated; F17.210 Nicotine dependence, cigarettes, uncomplicated; X58.XXXA Exposure to other specified factors, initial encounter
CPT/HCPCS: 73564; 73700; 96374; 96375; 96376; 99285; A4216; J2405

== ENCOUNTER → 2021-10-17 | Outpatient (CLI) | payer MEDICAID, SELFPAY ==
--- NOTE | 2021-10-17 12:47 | VDLE_ITS ---
Reason For Study: pain Procedure LEFT This is a venous duplex using B-mode, color GSV is normal. flow and spectral Doppler. CFV is compressible, spontaneous, phasic, Exam performed in department. competent, and demonstrates normal The exam was abbreviated due to the COVID 19 augmentation. protocol. FV is compressible, spontaneous, phasic, The exam was diagnostic. competent and demonstrates normal A preliminary report was called and/or faxed augmentation. to Irais Alejandra's office. POP V is compressible, spontaneous, phasic, competent and demonstrates normal augmentation. T/P Trunk is compressible. LT PerV is compressible. PTV are dilated and noncompressible. VL/Venous Duplex US, Unilateral Interpretation Summary Acute deep venous thrombosis left posterior tibial vein Patent and compressible left great saphenous vein Abbreviated COVID-19 protocol utilized Ordering Physician: Irais Alejandra Performed By: David Drummond RVT
== END | disposition home or self-care (01) ==
LOC: CVS 12:40
PROVIDERS: PCP Family Medicine
DX: S82.142A Displaced bicondylar fracture of left tibia, initial encounter for closed fracture (principal); S83.105A Unspecified dislocation of left knee, initial encounter; M79.605 Pain in left leg
CPT/HCPCS: 93971

== ENCOUNTER 2021-10-18 07:29 | Emergency (ER) | payer MEDICAID, SELFPAY ==
[2021-10-18 07:31] VITALS: BP 143/108; PULSE 104; RESP 16; TEMP 36.5; O2SAT 97; BMI 24.3
--- NOTE | 2021-10-18 07:52 | EDS_ITS ---
HPI History of Present Illness Chief Complaint: Shortness of Breath Narrative Narrative: Patient was sent in by orthopedics office for evaluation for possible pulmonary embolus. The patient states that when he walks with his crutches gets a lot of energy so he gets slightly winded. But he states he has COPD and asthma and he has allergies now and he feels normal. He is not any more short of breath and he would be on a normal day. He is not having chest pain. No lightheadedness o r syncope. He does not feel like his heart is racing. He feels the same as he does every day. He was evaluated for swelling in the left leg and found to have a DVT yesterday. This was in the tibial vein below the knee. He was started on Eliquis. They brought in the container. And he is taking the medicines. [facility] Medical History Alcoholism History of head injury Hx of dizziness Marijuana use Neuropathy Seizures Home Medications albuterol sulfate 90 mcg/actuation aerosol inhaler 2 puff inhalation Q4H PRN PRN Wheezing ##1 06/20/19 [Rx Last Taken 11/30/19] epinephrine 0.3 mg/0.3 mL injection, auto-injector 0.3 mg (0.3 mL) IM X1 #2 syringes 11/30/19 [Rx Last Taken Unknown] carbamazepine 200 mg tablet 200 mg PO BID 08/20/20 [History Last Taken Unknown] meclizine 12.5 mg tablet 12.5 mg PO BID 08/20/20 [History Last Taken Unknown] pravastatin 20 mg tablet 20 mg PO DAILY 08/20/20 [History Last Taken Unknown] quetiapine 400 mg tablet 400 - 800 mg PO DAILY 08/20/20 [History Last Taken Unknown] zaleplon 5 mg capsule 5 mg PO QHS PRN PRN Insomnia 08/20/20 [History Last Taken Unknown] baclofen 10 mg tablet 10 mg PO BID 12/25/20 [History Last Taken Unknown] ondansetron HCl 4 mg tablet 4 mg PO Q6H PRN nausea and vomiting #15 tabs 09/20/21 [Rx Last Taken Unknown] oxycodone-acetaminophen 5 mg-325 mg tablet (Percocet) 1 tab PO Q6H PRN pain 5 days #20 tabs 09/20/21 [Rx Last Taken Unknown] hydrocodone-acetaminophen 5-325mg 5mg-325mg 1 tab PO Q6H PRN pain 7 days #28 tabs 10/16/21 [Rx Last Taken Unknown] apixaban 5 mg tablet (Eliquis) 5 mg PO BID DVT 3 months #208 tabs 10/17/21 [Rx Last Taken Unknown] Allergy/AdvReac Type Severity Reaction Status Date / Time bee venom protein (honey bee) Allergy Anaphylaxis Verified 10/18/21 07:35 chocolate flavor Allergy Swelling Verified 10/18/21 07:35 clindamycin Allergy Rash Verified 10/18/21 07:35 iodine Allergy Rash Verified 10/18/21 07:35 methylprednisolone Allergy Shortness Verified 10/18/21 07:35 of breath Penicillins Allergy Rash Verified 10/18/21 07:35 Sulfa (Sulfonamide Allergy Rash Verified 10/18/21 07:35 Antibiotics) sulfamethoxazole Allergy Rash Verified 10/18/21 07:35 [From Bactrim] tramadol Allergy Rash Verified 10/18/21 07:35 trimethoprim [From Bactrim] Allergy Rash Verified 10/18/21 07:35 acetaminophen [From Percocet] AdvReac Vomiting Verified 10/18/21 07:35 Iodinated Contrast Media AdvReac Diarrhea Verified 10/18/21 07:35 [CONTRASTS] oxycodone [From Percocet] AdvReac Vomiting Verified 10/18/21 07:35 prednisone AdvReac Rash Verified 10/18/21 07:35 red dye AdvReac Diarrhea Verified 10/18/21 07:35 Surgical History History cyst removed left face History of tonsillectomy History evert left femur history steel plate inserted in skull Social History Smoking Status: Current every day smoker tobacco type: cigarettes alcohol intake: current alcohol intake frequency: 3 or more drinks per day Alcohol type: beer substance use type: marijuana ROS ROS ED Constitutional Constitutional ED: Denies chills or fever(s) Eyes Eyes: Denies change in vision ENT ENT ED: Denies rhinorrhea or sore throat Cardiovascular Cardiovascular: Denies chest pain, palpitations or racing heartbeat Respiratory/Chest Respiratory/Chest: Reports other Details: Patient gets transiently increased respiratory effort with walking with crutches but immediately resolves. He feels this is normal and not actual dyspnea for him. ; Denies cough, dyspnea or dyspnea on exertion Gastrointestinal Gastrointestinal: Denies abdominal pain or melena Musculoskeletal Musculoskeletal: Denies arthralgias or myalgias Integumentary Denies rash Neurologic Neurologic: Denies paresthesias or weakness Endocrine Endocrinology: Denies polydipsia or polyuria Hematologic/Lymphatic Hematologic/Lymphatic: Reports easy bleeding and easy bruising; Denies anemia Allergic/Immunologic Allergic/Immunologic ED: Denies urticaria EXAM Physical Exam Const Vital Signs: 10/18/21 07:31 Temperature 97.7 F L Temperature Source Oral Pulse Rate 104 H Respiratory Rate 16 Blood Pressure 143/108 H Blood Pressure Mean 119 Pulse Ox 97 Oxygen Delivery Method Room Air Positive well nourished and well developed General Appearance ED: well developed and NAD; Negative for cyanotic or diaphoretic HEENT Reports moist mucous membranes Eyes General Eye ED: Negative for pale conjunctiva or scleral icterus Neck no lymphadenopathy and no JVD Chest Wall inspection of chest normal and palpation of chest normal Resp normal respiratory effort and clear to auscultation bilaterally Resp Narrative: No pain with a deep breath Auscultation: Negative for rales, rhonchi, wheezes or diminished lung sounds Cardio regular rate and regular rhythm Rate: other Other Details: Heart rate is about 90 at this time. ; Negative for bradycardia or tachycardic Rhythm: Negative for abnormal rhythm GI normal to inspection, nondistended, normoactive bowel sounds and non-tender Back/Spine no CVA tenderness Extremity Extremity Narrative: Patient has a range of motion limiting splint on left lower extremity. No indication of phlegmasia cerulea [place] or dolens Neuro Sensorium / Orientation: alert; Negative for orientation impaired, lethargic or stuporous Psych mental status grossly normal Skin no rashes or lesions noted MDM MDM MDM Narrative Medical decision making narrative: Patient and his really do not want a CT scan for PE. He states he feels the same as he does every other day. He states he gets slightly winded but this would be normal for him with his asthma, COPD, smoking and allergies. He states if he gets IV contrast he will have extended period of diarrhea. He does not want this. I explained that years ago ultrasounds would not even be done below the knees. Patient has no symptoms that would indicate significant cardiac dysfunction. He is already on anticoagulation. The CT scan of his chest is not likely to alter therapy. Patient does not want the test done and I think that is reasonable in this specific set of situations and circumstances. He was encouraged to continue that medicine. He states he has a 3-month supply. Discharge Plan Triage Chief Complaint: Shortness of Breath ED Provider: Alexander Whittaker Dx/Rx/DC Orders Clinical Impression: DVT (deep venous thrombosis) Instructions: ED Deep Vein Thrombosis (DVT) Prescriptions: No Action pravastatin 20 mg tablet 20 mg PO DAILY Label Comments: Take 1 tablet by mouth daily at bedtime. carbamazepine 200 mg tablet 200 mg PO BID Label Comments: TAKE 2 TABLETS BY MOUTH TWICE DAILY meclizine 12.5 mg tablet 12.5 mg PO BID quetiapine 400 mg tablet 400 - 800 mg PO DAILY zaleplon 5 mg capsule 5 mg PO QHS PRN PRN (Reason: Insomnia) Label Comments: Take 1 Capsule By Oral Route 1 time per day at bedtime prn. This is a 30 day supply. hydrocodone-acetaminophen 5-325 mg tablet 1 tab PO Q6H PRN (Reason: pain) 7 Days Qty: 28 0RF Eliquis 5 mg tablet 5 mg PO BID 90 Days Qty: 208 0RF Rx Instructions: 10mg twice a day for 7 days. Then 5 mg twice a day for 3 months. albuterol sulfate 1 INHALER inhaler 2 puff inhalation Q4H PRN PRN (Reason: Wheezing) Qty: 1 0RF epinephrine 0.3 MG syringe 0.3 mg IM X1 Qty: 2 1RF Rx Instructions: Use as directed, as needed for stings baclofen 10 mg Tablet 10 mg PO BID oxycodone-acetaminophen [Percocet] 5-325 mg tablet 1 tab PO Q6H PRN (Reason: pain) 5 Days Qty: 20 0RF ondansetron HCl 4 mg tablet 4 mg PO Q6H PRN (Reason: nausea and vomiting) Qty: 15 0RF Primary Care Provider: Sen Ventura Referrals: Sen Ventura MD [Primary Care Provider] - 3-5 Days Disposition Disposition: Home, Self Care
--- NOTE | 2021-10-18 08:20 | NURSING ---
Pt left prior to completion.
--- NOTE | 2021-10-18 08:20 | ED.RN ---
Pt left prior to completion.
--- NOTE | 2021-10-18 08:21 | ED.RN ---
Pt left prior to completion.
--- NOTE | 2021-10-18 08:21 | ED.RN ---
Pt left prior to completion.
--- NOTE | 2021-10-18 08:21 | ED.RN ---
Pt left prior to completion.
== END 2021-10-18 08:23 | disposition home or self-care (01) ==
PROVIDERS: Emergency Provider Emergency Medicine; PCP Family Medicine; Visit Provider Emergency Medicine
DX: I82.402 Acute embolism and thrombosis of unspecified deep veins of left lower extremity (principal); F12.90 Cannabis use, unspecified, uncomplicated
CPT/HCPCS: 99281; 99282

== ENCOUNTER 2021-11-26 08:40 | Emergency (ER) | payer MEDICAID, SELFPAY ==
[2021-11-26 08:42] VITALS: BP 131/83; PULSE 70; RESP 14; TEMP 36.2; O2SAT 96; BMI 25.1
--- NOTE | 2021-11-26 09:11 | RAD_ITS ---
STUDY: X-RAY - LEFT KNEE REASON FOR EXAM: Male, 36 years old. Pain and swelling following injury. TECHNIQUE: 2 view(s) of the knee. COMPARISON: Comparison is made with prior study dated 10/16/2021. FINDINGS: Normal visualized distal femur. Healed fracture of the lateral tibial plateau. Normal proximal tibiofibular articulation. Normal medial femorotibial compartment. Normal lateral femorotibial compartment. Normal patellofemoral articulation. Small joint effusion. RAD/Knee 1 or 2 Views IMPRESSION: Joint effusion. Electronically Signed: John Colón MD at 9:29 EDT ,
--- NOTE | 2021-11-26 09:15 | EDS_ITS ---
HPI History of Present Illness Chief Complaint: Lower Extremity Injury Detail of Chief Complaint: Left knee pain Informant: patient Onset/Context/Timing Onset: Yesterday Current Severity: Moderate Maximum Severity: Moderate Narrative Narrative: Patient presents secondary left knee injury. He states he was trying to go up some steps yesterday that were wet and he slipped and fell. He had a lateral tibial plateau fracture of the left tibia 2 months ago. He states he now has increased pain and swelling. He is having trouble with any weightbearing. He did not take anything this morning for pain. He denies any other injury from the fall. [facility] Medical History Alcoholism History of head injury Hx of dizziness Marijuana use Neuropathy Seizures Home Medications albuterol sulfate 90 mcg/actuation aerosol inhaler 2 puff inhalation Q4H PRN PRN Wheezing ##1 06/20/19 [Rx Last Taken 11/30/19] epinephrine 0.3 mg/0.3 mL injection, auto-injector 0.3 mg (0.3 mL) IM X1 #2 syringes 11/30/19 [Rx Last Taken Unknown] meclizine 12.5 mg tablet 12.5 mg PO BID 08/20/20 [History Last Taken Unknown] pravastatin 20 mg tablet 20 mg PO DAILY 08/20/20 [History Last Taken Unknown] quetiapine 400 mg tablet 400 - 800 mg PO DAILY 08/20/20 [History Last Taken Unknown] zaleplon 5 mg capsule 5 mg PO QHS PRN PRN Insomnia 08/20/20 [History Last Taken Unknown] baclofen 10 mg tablet 10 mg PO BID 12/25/20 [History Last Taken Unknown] ondansetron HCl 4 mg tablet 4 mg PO Q6H PRN nausea and vomiting #15 tabs 09/20/21 [Rx Last Taken Unknown] hydrocodone-acetaminophen 5-325mg 5mg-325mg 1 tab PO Q6H PRN pain 3 days #10 tabs 11/26/21 [Rx Last Taken Unknown] Allergy/AdvReac Type Severity Reaction Status Date / Time bee venom protein (honey bee) Allergy Anaphylaxis Verified 11/26/21 08:42 chocolate flavor Allergy Swelling Verified 11/26/21 08:42 clindamycin Allergy Rash Verified 11/26/21 08:42 iodine Allergy Rash Verified 11/26/21 08:42 methylprednisolone Allergy Shortness Verified 11/26/21 08:42 of breath Penicillins Allergy Rash Verified 11/26/21 08:42 Sulfa (Sulfonamide Allergy Rash Verified 11/26/21 08:42 Antibiotics) sulfamethoxazole Allergy Rash Verified 11/26/21 08:42 [From Bactrim] tramadol Allergy Rash Verified 11/26/21 08:42 trimethoprim [From Bactrim] Allergy Rash Verified 11/26/21 08:42 acetaminophen [From Percocet] AdvReac Vomiting Verified 11/26/21 08:42 Iodinated Contrast Media AdvReac Diarrhea Verified 11/26/21 08:42 [CONTRASTS] oxycodone [From Percocet] AdvReac Vomiting Verified 11/26/21 08:42 prednisone AdvReac Rash Verified 11/26/21 08:42 red dye AdvReac Diarrhea Verified 11/26/21 08:42 Surgical History History cyst removed left face History of tonsillectomy History evert left femur history steel plate inserted in skull Social History Smoking Status: Current every day smoker tobacco type: cigarettes alcohol intake: current alcohol intake frequency: 3 or more drinks per day Alcohol type: beer substance use type: marijuana ROS ROS ED Constitutional Constitutional ED: Denies chills or fever(s) Eyes Eyes: Denies change in vision or discharge from eye(s) ENT ENT ED: Denies discharge from eye(s), rhinorrhea or sore throat Cardiovascular Cardiovascular: Denies chest pain or palpitations Respiratory/Chest Respiratory/Chest: Denies cough or dyspnea Gastrointestinal Gastrointestinal: Denies abdominal pain, nausea or vomiting Genitourinary Genitourinary ED: Denies difficulty urinating or dysuria Musculoskeletal Musculoskeletal: Reports extremity pain; Denies back pain Integumentary Denies Abrasions or rash Neurologic Neurologic: Denies headache(s) or weakness Allergic/Immunologic Allergic/Immunologic ED: Denies lip swelling or urticaria EXAM Physical Exam Const Vital Signs: 11/26/21 08:42 Temperature 97.2 F L Temperature Source Temporal Pulse Rate 70 Respiratory Rate 14 Blood Pressure 131/83 H Blood Pressure Mean 99 Pulse Ox 96 Oxygen Delivery Method Room Air Positive well nourished and well developed General Appearance ED: well developed HEENT Reports normocephalic and head/scalp atraumatic Eyes PERRL and EOMs intact bilaterally Neck supple Chest Wall inspection of chest normal and palpation of chest normal Resp normal respiratory effort and clear to auscultation bilaterally Cardio regular rate and regular rhythm GI normal to inspection, nondistended, normoactive bowel sounds Palpation: soft Extremity Extremity Narrative: Edema noted to the left knee. Decreased range of motion secondary to pain. No tenderness of the hip or ankle. Strong distal pulses. Neuro oriented x3 and no sensory deficits noted Sensorium / Orientation: alert Psych mental status grossly normal Skin no rashes or lesions noted MDM MDM MDM Narrative Medical decision making narrative: Patient given [place] for pain. Left knee x-rays obtained. Radiography Diagnostic Testing: Clinical Impression(s) from Imaging Studies Knee X-Ray 11/26/21 09:11 IMPRESSION: Joint effusion. Electronically Signed: John Colón MD at 9:29 EDT , Treatment and Re-Evaluation Narrative: Left knee x-ray per my interpretation shows no obvious bony injury. Edema is noted. Radiology interpretation is reviewed. I did speak with Dr. Groves. He advises to have the patient made nonweightbearing and they will obtain an MRI from the office given the patient's recent tibial plateau fracture. He will be given crutches at this time. He has a wheelchair at home to use. Discharge Plan Triage Chief Complaint: Lower Extremity Injury ED Provider: Chani Mcclain Dx/Rx/DC Orders Clinical Impression: Left knee sprain Instructions: ED Knee Sprain Prescriptions: New hydrocodone-acetaminophen 5-325 mg tablet 1 tab PO Q6H PRN (Reason: pain) 3 Days Qty: 10 0RF No Action pravastatin 20 mg tablet 20 mg PO DAILY Label Comments: Take 1 tablet by mouth daily at bedtime. meclizine 12.5 mg tablet 12.5 mg PO BID quetiapine 400 mg tablet 400 - 800 mg PO DAILY zaleplon 5 mg capsule 5 mg PO QHS PRN PRN (Reason: Insomnia) Label Comments: Take 1 Capsule By Oral Route 1 time per day at bedtime prn. This is a 30 day supply. albuterol sulfate 1 INHALER inhaler 2 puff inhalation Q4H PRN PRN (Reason: Wheezing) Qty: 1 0RF epinephrine 0.3 MG syringe 0.3 mg IM X1 Qty: 2 1RF Rx Instructions: Use as directed, as needed for stings baclofen 10 mg Tablet 10 mg PO BID ondansetron HCl 4 mg tablet 4 mg PO Q6H PRN (Reason: nausea and vomiting) Qty: 15 0RF Primary Care Provider: Sen Ventura Referrals: Jun Groves DO [Med Staff - Active Staff] - 3-5 Days Sen Ventura MD [Primary Care Provider] - Disposition Disposition: Home, Self Care
[2021-11-26] MEDS: HYDROcodone Bitartrate/Apap 5/325 Tablet PO (09:54)
[2021-11-26 10:23] VITALS: BP 122/88; PULSE 66; RESP 16; O2SAT 98
== END 2021-11-26 10:26 | disposition home or self-care (01) ==
PROVIDERS: Emergency Provider Emergency Medicine; PCP Family Medicine; Visit Provider Emergency Medicine
DX: S83.92XA Sprain of unspecified site of left knee, initial encounter (principal); F12.90 Cannabis use, unspecified, uncomplicated; F17.210 Nicotine dependence, cigarettes, uncomplicated; Z79.899 Other long term (current) drug therapy; W10.9XXA Fall (on) (from) unspecified stairs and steps, initial encounter
CPT/HCPCS: 73560; 99284

== ENCOUNTER 2022-08-20 06:40 | Emergency (ER) | payer MEDICAID, SELFPAY ==
[2022-08-20 06:41] VITALS: BP 138/92; PULSE 91; RESP 18; TEMP 36.1; O2SAT 100; BMI 28.5
--- NOTE | 2022-08-20 06:44 | EKG12_ITS ---
Test Reason : CP Blood Pressure : / mmHG Vent. Rate : 087 BPM Atrial Rate : 087 BPM P-R Int : 138 ms QRS Dur : 098 ms QT Int : 356 ms P-R-T Axes : 055 014 056 degrees QTc Int : 428 ms Normal sinus rhythm Normal ECG Confirmed by LUKAS PALACIOS, MONIK ([id number]), editor house organ BECKA IVERSON ([id number]) on 08/22/2022 9:35:23 AM Referred By: DINAH Confirmed By:MONIK GAYTAN MD
--- NOTE | 2022-08-20 07:00 | RAD_ITS ---
EXAM: XR CHEST, 2 VIEWS CLINICAL INDICATION: cp TECHNIQUE: Frontal and lateral views of the chest. COMPARISON: 12/25/2020 FINDINGS: LUNGS AND PLEURAL SPACES: Unremarkable. No consolidation or edema. No pneumothorax. No effusion. HEART: Unremarkable. Cardiac silhouette not enlarged. MEDIASTINUM: Central airways and mediastinal contour are unremarkable. BONES/JOINTS: Unremarkable. SOFT TISSUES: Unremarkable. RAD/Chest PA and Lateral IMPRESSION: No radiographic evidence of acute cardiopulmonary disease. Electronically Signed: Fletcher Valle MD at 7:11 EDT ,
[2022-08-20] MEDS: Mag Hydrox/Al Hydrox/Simeth 30 ML UDC PO (07:32)
[2022-08-20 07:42] LABS: Absolute Lymphocyte Count 2.64 X10^3/uL (0.83-4.51); Absolute Neutrophil Count 4.6 X10^3/uL (2.0-7.7); Basophil# 0.06 X10^3/uL; Basophil% 0.8 % (0-1); Eosinophil# 0.18 X10^3/uL; Eosinophils% 2.3 % (0-5); Hematocrit 44.8 % (40-54); Hemoglobin 15.2 g/dL (13.0-16.5); Lymphocyte # 2.64 X10^3/ul (0.83-4.51); Lymphocyte % 33.2 % (19-41); Mean Corp Hgb Conc 33.9 g/dL (32-36); Mean Corpuscular Hgb 31.3 pg (27.0-32.0); Mean Corpuscular Volume 92.2 fL (80-94); Mean Platelet Vol. 10.2 fl (6.2-12.0); Monocyte# 0.43 X10^3/uL; Monocyte% 5.4 % (0-10); NRBC Flagged by Analyzer 0 % (0-5); Neutrophil % 57.8 % (47-70); Platelet Count 273 K/mm3 (150-450); RBC Distribution Width CV 12.7 % (11.6-14.6); RBC Distribution Width SD 43.1 fl (35.1-43.9); Red Blood Count 4.86 M/mm3 (4.6-6.2)
--- NOTE | 2022-08-20 07:58 | ED.VIS.CHEST ---
HPI History of Present Illness Chief Complaint: Chest Pain Informant: patient Narrative Narrative: Patient awoke this morning with lower substernal chest discomfort without radiation at around 0600, was here in the emergency department by 0645. No associated nausea, palpitations, diaphoresis, dyspnea. No recent leg pain or swelling. Remote history of leg blood clot years ago for unknown reason. No recent illness, coughing, but the patient states in the last 3 days he has just felt tired for unknown reasons which is unusual for him. He states occasionally in the last several days he has had tingling in both his hands all fingers off and on for no obvious reason. He states when he got out of bed he felt a little dizzy this morning. That is not the case now. [facility] Medical History Alcoholism History of head injury Hx of dizziness Marijuana use Neuropathy Seizures Home Medications albuterol sulfate 90 mcg/actuation aerosol inhaler 2 puff inhalation Q4H PRN PRN Wheezing ##1 06/20/19 [Rx Last Taken 11/30/19] epinephrine 0.3 mg/0.3 mL injection, auto-injector 0.3 mg (0.3 mL) IM X1 #2 syringes 11/30/19 [Rx Last Taken Unknown] meclizine 12.5 mg tablet 12.5 mg PO BID 08/20/20 [History Last Taken Unknown] pravastatin 20 mg tablet 20 mg PO DAILY 08/20/20 [History Last Taken Unknown] quetiapine 400 mg tablet 400 - 800 mg PO DAILY 08/20/20 [History Last Taken Unknown] zaleplon 5 mg capsule 5 mg PO QHS PRN PRN Insomnia 08/20/20 [History Last Taken Unknown] baclofen 10 mg tablet 10 mg PO BID 12/25/20 [History Last Taken Unknown] ondansetron HCl 4 mg tablet 4 mg PO Q6H PRN nausea and vomiting #15 tabs 09/20/21 [Rx Last Taken Unknown] hydrocodone-acetaminophen 5-325mg 5mg-325mg 1 tab PO Q6H PRN pain 3 days #10 tabs 11/26/21 [Rx Last Taken Unknown] Allergy/AdvReac Type Severity Reaction Status Date / Time bee venom protein (honey bee) Allergy Anaphylaxis Verified 08/20/22 06:46 chocolate flavor Allergy Swelling Verified 08/20/22 06:46 clindamycin Allergy Rash Verified 08/20/22 06:46 iodine Allergy Rash Verified 08/20/22 06:46 methylprednisolone Allergy Shortness Verified 08/20/22 06:46 of breath Penicillins Allergy Rash Verified 08/20/22 06:46 Sulfa (Sulfonamide Allergy Rash Verified 08/20/22 06:46 Antibiotics) sulfamethoxazole Allergy Rash Verified 08/20/22 06:46 [From Bactrim] tramadol Allergy Rash Verified 08/20/22 06:46 trimethoprim [From Bactrim] Allergy Rash Verified 08/20/22 06:46 acetaminophen [From Percocet] AdvReac Vomiting Verified 11/26/21 08:42 Iodinated Contrast Media AdvReac Diarrhea Verified 11/26/21 08:42 [CONTRASTS] oxycodone [From Percocet] AdvReac Vomiting Verified 11/26/21 08:42 prednisone AdvReac Rash Verified 11/26/21 08:42 red dye AdvReac Diarrhea Verified 11/26/21 08:42 Surgical History History cyst removed left face History of tonsillectomy History evert left femur history steel plate inserted in skull Social History Smoking Status: Current every day smoker tobacco type: cigarettes alcohol intake: current alcohol intake frequency: 3 or more drinks per day Alcohol type: beer substance use type: marijuana ROS ROS ED Constitutional Constitutional ED: Reports fatigue and malaise; Denies chills or fever(s) Eyes Eyes: Denies change in vision or diplopia ENT ENT ED: Denies rhinorrhea or sore throat Cardiovascular Cardiovascular: Reports chest pain and other Details: Nonpleuritic chest discomfort ; Denies palpitations Respiratory/Chest Respiratory/Chest: Denies cough or dyspnea Gastrointestinal Gastrointestinal: Denies abdominal pain, diarrhea, nausea or vomiting Genitourinary Genitourinary ED: Denies dysuria or hematuria Musculoskeletal Musculoskeletal: Denies back pain or neck pain Integumentary Denies abscess or rash Neurologic Neurologic: Reports paresthesias; Denies headache(s) or weakness Psychiatric Psychiatric: Denies anxiety or suicidal thoughts EXAM Physical Exam Const Vital Signs: 08/20/22 06:41 08/20/22 06:48 Temperature 96.9 F L Temperature Source Temporal Pulse Rate 91 Respiratory Rate 18 Respiratory Effort Short of Breath Blood Pressure 138/92 H Blood Pressure Mean 107 Pulse Ox 100 Oxygen Delivery Method Room Air Positive well nourished, well developed and unkempt General Appearance ED: unkempt, well developed and NAD HEENT Reports moist mucous membranes normocephalic and atraumatic Eyes PERRL and EOMs intact bilaterally Neck full ROM, no lymphadenopathy, supple and no JVD Chest Wall inspection of chest normal and palpation of chest normal Resp normal respiratory effort and clear to auscultation bilaterally Cardio regular rate, regular rhythm and no murmurs Rate: Negative for tachycardic GI non-tender and non-distended Auscultation: normoactive bowel sounds Palpation: soft Back/Spine no CVA tenderness General Back: other FROM Extremity normal to inspection, no calf tenderness and no pedal edema General Extremety ED: Negative for edema, pulses abnormal or tenderness General Extremity: Negative for edema or pulses abnormal Neuro oriented x3, CN's II-XII intact bilaterally and no sensory deficits noted Sensorium / Orientation: awake and alert Motor Exam: strength 5/5 throughout Psych Appearance: unkempt Skin no rashes or lesions noted and no wounds Heart Score History: Moderately Suspicious ECG: Normal Age: </= 45 years Risk Factors: 1 or 2 Risk Factors (Smoker) Troponin: </= Normal Limit Score: 2 MDM MDM MDM Narrative Medical decision making narrative: Given the patient was lying supine when this started, esophageal disorders/reflux in the differential diagnosis, also cardiac, pulmonary but I do not think this is a blood clot. His PERC score is 0, if his blood clot in the past was not a true DVT but there is no record of it here so I do not know and he does not know either. Regardless I do not think the symptoms really are that of a PE and I do not think he needs that work-up although we did consider D-dimer/CTA, not indicated at this time for this reason. His initial troponin is less than 3. I recommended a repeat in order to really make sure this was not cardiac, even though he did have improvement after GI cocktail. He said that his chest was not bothering him as much as his dizziness was, and he said he felt lightheaded. Therefore while waiting for repeat troponin I ordered some IV fluids after discussing this with him, he then refused and change his mind and wanted to leave, I am okay with that, shared decision making, he is okay with a slightly increased risk of this being something cardiac, however his heart score is only 2, so I am okay with him going home and following up. History & Record Review Additional record(s) reviewed:: Prior outpatient record (No cardiology entries such as clinic visit, stress test, echocardiogram; only EKGs) and Prior labs Lab Data Attestation: I reviewed the patient's lab results. Labs: Laboratory Results - last 24 hr 08/20/22 08/20/22 07:25 07:25 WBC 8.0 RBC 4.86 Hgb 15.2 Hct 44.8 MCV 92.2 MCH 31.3 MCHC 33.9 RDW Std Deviation 43.1 RDW Coeff of Mable 12.7 Plt Count 273 MPV 10.2 Immature Gran % (Auto) 0.500 Neut % (Auto) 57.8 Lymph % (Auto) 33.2 [place] % (Auto) 5.4 Eos % (Auto) 2.3 Baso % (Auto) 0.8 Absolute Neuts (auto) 4.6 Absolute Lymphs (auto) 2.64 Nucleated RBC % 0 Sodium 139 Potassium 3.5 Chloride 108 H Carbon Dioxide 22.0 Anion Gap 9 BUN 12 Creatinine 1.10 Estim Creat Clear Calc 95.86 Est GFR (MDRD) Af Amer 97 Est GFR (MDRD) Non-Af 80 BUN/Creatinine Ratio 10.9 Glucose 175 H Calcium 9.4 Troponin I High Sens < 3 L Radiography Chest X-Ray - ED: 2 View, Read by ED Physician, No Acute Disease and No Infiltrates Diagnostic Testing: Clinical Impression(s) from Imaging Studies Chest X-Ray 08/20/22 07:00 IMPRESSION: No radiographic evidence of acute cardiopulmonary disease. Electronically Signed: Fletcher Valle MD at 7:11 EDT , Rhythm Strip Rhythm Strip: Sinus Rhythm Rate: 84 Ectopy: None EKG Initial EKG: Attestation: I personally reviewed and interpreted this EKG as follows: Interpretation: Sinus Rhythm and No Acute Injury Pattern Comments: normal EKG Prior EKG tracings: available for review Prior: Unchanged Discharge Plan Triage Chief Complaint: Chest Pain ED Provider: Rock Lucia Dx/Rx/DC Orders Clinical Impression: Chest pain, unspecified Instructions: ED Chest Pain, Noncardiac Prescriptions: No Action pravastatin 20 mg tablet 20 mg PO DAILY Label Comments: Take 1 tablet by mouth daily at bedtime. meclizine 12.5 mg tablet 12.5 mg PO BID quetiapine 400 mg tablet 400 - 800 mg PO DAILY zaleplon 5 mg capsule 5 mg PO QHS PRN PRN (Reason: Insomnia) Label Comments: Take 1 Capsule By Oral Route 1 time per day at bedtime prn. This is a 30 day supply. albuterol sulfate 1 INHALER inhaler 2 puff inhalation Q4H PRN PRN (Reason: Wheezing) Qty: 1 0RF epinephrine 0.3 MG syringe 0.3 mg IM X1 Qty: 2 1RF Rx Instructions: Use as directed, as needed for stings baclofen 10 mg Tablet 10 mg PO BID ondansetron HCl 4 mg tablet 4 mg PO Q6H PRN (Reason: nausea and vomiting) Qty: 15 0RF hydrocodone-acetaminophen 5-325 mg tablet 1 tab PO Q6H PRN (Reason: pain) 3 Days Qty: 10 0RF Primary Care Provider: Sen Ventura Referrals: Sen Ventura MD [Primary Care Provider] - 3-5 Days if not improving Activity Restrictions/Additional Instructions: There is a possibility this is esophageal discomfort, some of those issues are acid-related some or not. Consider taking [id number] Pepcid or Nexium or similar medication once daily for the next week or 2 if you continue having discomfort. Disposition Disposition: Home, Self Care
[2022-08-20 08:02] LABS: Anion Gap 9 (5-15); BUN 12 mg/dL (7-18); BUN/Creat Ratio 10.9 RATIO (10-20); Calcium,Total 9.4 mg/dL (8.5-10.1); Chloride 108 mmol/L (98-107); EST Glomerular Filtration Rate 80 mL/min (>60); Est Glom Filt Rate - Afr Amer 97 mL/min (>60); Estimated Creatinine Clearance 95.86 ml/min; Glucose 175 mg/dL (74-106); Potassium 3.5 mmol/L (3.5-5.1); Sodium Level 139 mmol/L (136-145); Troponin-I HS < 3 pg/mL (3.0-78.0)
[2022-08-20 09:07] VITALS: BP 125/78; PULSE 78; RESP 14; O2SAT 99
== END 2022-08-20 09:11 | disposition home or self-care (01) ==
PROVIDERS: Emergency Provider Emergency Medicine; PCP Family Medicine; Visit Provider Emergency Medicine
DX: R07.9 Chest pain, unspecified (principal); F17.210 Nicotine dependence, cigarettes, uncomplicated; F12.10 Cannabis abuse, uncomplicated
CPT/HCPCS: 71046; 80048; 84484; 85025; 93005; 99285; J7030; A4216

== ENCOUNTER 2022-11-08 13:15 | Emergency (ER) | payer MEDICAID, SELFPAY ==
[2022-11-08 13:16] VITALS: BP 118/87; PULSE 101; RESP 17; TEMP 37; O2SAT 96; BMI 27.8
[2022-11-08 13:19] VITALS: BP 118/87; PULSE 105; RESP 17; O2SAT 96
--- NOTE | 2022-11-08 13:23 | ED.RN ---
PER PT AND PT SPOUSE, ONE TIME DOSE OF METHYLPREDNISOLONE WILL NOT AFFECT PT. PT ONLY HAS SHORTNESS OF BREATH ADVERSE REACTION WHEN TAKING STEROIDS ORALLY OVER MULTIPLE DAYS.
--- NOTE | 2022-11-08 13:23 | EX.ED.DYSGE1 ---
HPI History of Present Illness Chief Complaint: Allergic Reaction Detail of Chief Complaint: Allergic reaction Informant: patient and spouse/S.O. Narrative Narrative: Patient presents to the emergency department after being stung by bee about half an hour ago. Patient states that he has an EpiPen but could not figure out how to use it so they called EMS who gave him epinephrine x3. Patient was also given Benadryl 50 mg IV. Patient claims allergy to Solu-Medrol and prednisone and that it makes him mean. Patient does not have anaphylaxis from these. He is comfortable having a one-time dose of Solu-Medrol. On arrival he does feel improved. Denies shortness of breath. He denies chest pain. Denies rash. [facility] Medical History Alcoholism History of head injury Hx of dizziness Marijuana use Neuropathy Seizures Home Medications albuterol sulfate 90 mcg/actuation aerosol inhaler 2 puff inhalation Q4H PRN PRN Wheezing ##1 06/20/19 [Rx Last Taken 11/30/19] epinephrine 0.3 mg/0.3 mL injection, auto-injector 0.3 mg (0.3 mL) IM X1 #2 syringes 11/30/19 [Rx Last Taken Unknown] meclizine 12.5 mg tablet 12.5 mg PO BID 08/20/20 [History Last Taken Unknown] pravastatin 20 mg tablet 20 mg PO DAILY 08/20/20 [History Last Taken Unknown] quetiapine 400 mg tablet 400 - 800 mg PO DAILY 08/20/20 [History Last Taken Unknown] zaleplon 5 mg capsule 5 mg PO QHS PRN PRN Insomnia 08/20/20 [History Last Taken Unknown] baclofen 10 mg tablet 10 mg PO BID 12/25/20 [History Last Taken Unknown] ondansetron HCl 4 mg tablet 4 mg PO Q6H PRN nausea and vomiting #15 tabs 09/20/21 [Rx Last Taken Unknown] hydrocodone-acetaminophen 5-325mg 5mg-325mg 1 tab PO Q6H PRN pain 3 days #10 tabs 11/26/21 [Rx Last Taken Unknown] Allergy/AdvReac Type Severity Reaction Status Date / Time bee venom protein (honey bee) Allergy Anaphylaxis Verified 11/08/22 13:22 chocolate flavor Allergy Swelling Verified 11/08/22 13:22 clindamycin Allergy Rash Verified 11/08/22 13:22 iodine Allergy Rash Verified 11/08/22 13:22 methylprednisolone Allergy Shortness Verified 11/08/22 13:22 of breath Penicillins Allergy Rash Verified 11/08/22 13:22 Sulfa (Sulfonamide Allergy Rash Verified 11/08/22 13:22 Antibiotics) sulfamethoxazole Allergy Rash Verified 11/08/22 13:22 [From Bactrim] tramadol Allergy Rash Verified 08/20/22 06:46 trimethoprim [From Bactrim] Allergy Rash Verified 11/08/22 13:22 acetaminophen [From Percocet] AdvReac Vomiting Verified 11/08/22 13:22 Iodinated Contrast Media AdvReac Diarrhea Verified 11/08/22 13:22 [CONTRASTS] oxycodone [From Percocet] AdvReac Vomiting Verified 11/08/22 13:22 prednisone AdvReac Rash Verified 11/08/22 13:22 red dye AdvReac Diarrhea Verified 11/08/22 13:22 Surgical History History cyst removed left face History of tonsillectomy History evert left femur history steel plate inserted in skull Social History Smoking Status: Current every day smoker tobacco type: cigarettes alcohol intake: current alcohol intake frequency: 3 or more drinks per day Alcohol type: beer substance use type: marijuana ROS ROS ED Review of Systems ROS Unobtainable: other Constitutional Constitutional ED: Reports lethargy; Denies chills, fever(s), sweats or weight loss Eyes Eyes: Denies blurry vision, change in vision or diplopia ENT ENT ED: Denies rhinorrhea or sore throat Cardiovascular Cardiovascular: Denies chest pain, orthopnea or racing heartbeat Respiratory/Chest Respiratory/Chest: Denies cough, dyspnea, dyspnea on exertion, orthopnea or sputum Gastrointestinal Gastrointestinal: Denies abdominal pain, diarrhea, nausea or vomiting Genitourinary Genitourinary ED: Denies dysuria, hematuria or urinary frequency Musculoskeletal Musculoskeletal: Reports other Details: Redness and swelling to left wrist ; Denies arthralgias, back pain, myalgias or neck pain Integumentary Denies abscess, Abrasions or rash Neurologic Neurologic: Denies headache(s) or weakness Psychiatric Psychiatric: Denies anxiety, depression or suicidal thoughts Endocrine Endocrinology: Denies polydipsia, polyphagia or polyuria Hematologic/Lymphatic Hematologic/Lymphatic: Denies easy bleeding, easy bruising or lymphadenopathy Allergic/Immunologic Allergic/Immunologic ED: Denies mouth swelling, tongue swelling or urticaria EXAM Physical Exam Const Vital Signs: 11/08/22 13:16 11/08/22 13:19 11/08/22 13:30 Temperature 98.6 F Temperature Source Oral Pulse Rate 101 H 105 H 94 Respiratory Rate 17 17 20 H Blood Pressure 118/87 H 118/87 H 123/84 H Blood Pressure Mean 97 97 97 Pulse Ox 96 96 97 Oxygen Delivery Method Room Air Room Air Room Air 11/08/22 16:07 11/08/22 16:07 Temperature Temperature Source Pulse Rate 74 74 Respiratory Rate 16 16 Blood Pressure 123/85 H 123/83 H Blood Pressure Mean 97 Pulse Ox 97 97 Oxygen Delivery Method Room Air Positive well nourished and well developed General Appearance ED: well developed and NAD HEENT Reports TM's clear and moist mucous membranes normocephalic and atraumatic; Negative for trauma or tenderness Tympanic Membrane ED: Yes TM's clear Eyes PERRL and EOMs intact bilaterally General Eye ED: Negative for pale conjunctiva or scleral icterus Neck no lymphadenopathy, supple and no JVD General: Negative for tenderness Chest Wall inspection of chest normal and palpation of chest normal Chest: Negative for tenderness Resp normal respiratory effort and clear to auscultation bilaterally Effort and Inspection: Negative for respiratory distress or pain with movement Auscultation: Negative for rhonchi, wheezes or diminished lung sounds Cardio regular rate, regular rhythm, S1 normal heart sound, S2 normal heart sound and no murmurs Peripheral Pulses: pulses 2+ throughout GI normal to inspection, nondistended, normoactive bowel sounds, soft to palpation, non-tender, non-distended and no masses Back/Spine no CVA tenderness and no thoracic nor lumbar tenderness Extremity Extremity Narrative: Left wrist-patient has an area of mild erythema over the medial aspect of the wrist. No other rashes noted. General Extremety ED: Negative for edema General Extremity: Negative for edema Neuro oriented x3, CN's II-XII intact bilaterally, no sensory deficits noted and gait normal Sensorium / Orientation: awake, alert, oriented to person, oriented to place and oriented to time Motor Exam: strength 5/5 throughout and strength abnormal Psych mental status grossly normal Skin no rashes or lesions noted and no wounds MDM MDM MDM Narrative Medical decision making narrative: EMS called back while we were observing the patient and stated that they accidentally pushed 04/999 epi instead of 1/10,000 epi. Patient given Solu-Medrol in the emergency department. Clinically he looks well. Will observe for 4 hours. Patient was reevaluated after Solu-Medrol administration. He has been in the emergency department almost 2 hours currently and has not had any reaction to the Solu-Medrol. Patient feels back to his baseline. Patient was observed for almost 3 hours and is demanding to be discharged and have his IV removed. Patient states that he is wasting his anniversary here. He has no complaints. And he will be discharged to home. He is advised to return if increased difficulty breathing or rash or trouble swallowing or condition should worsen anyway. He does have an EpiPen at home. Discharge Plan Triage Chief Complaint: Allergic Reaction ED Provider: Jack Purdy Dx/Rx/DC Orders Clinical Impression: Allergic reaction to bee sting Instructions: ED BEE STING General Allergic Rxn Prescriptions: No Action pravastatin 20 mg tablet 20 mg PO DAILY Patient Comments: Take 1 tablet by mouth daily at bedtime. meclizine 12.5 mg tablet 12.5 mg PO BID quetiapine 400 mg tablet 400 - 800 mg PO DAILY zaleplon 5 mg capsule 5 mg PO QHS PRN PRN (Reason: Insomnia) Patient Comments: Take 1 Capsule By Oral Route 1 time per day at bedtime prn. This is a 30 day supply. albuterol sulfate 1 INHALER inhaler 2 puff inhalation Q4H PRN PRN (Reason: Wheezing) Qty: 1 0RF epinephrine 0.3 MG syringe 0.3 mg IM X1 Qty: 2 1RF Rx Instructions: Use as directed, as needed for stings baclofen 10 mg Tablet 10 mg PO BID ondansetron HCl 4 mg tablet 4 mg PO Q6H PRN (Reason: nausea and vomiting) Qty: 15 0RF hydrocodone-acetaminophen 5-325 mg tablet 1 tab PO Q6H PRN (Reason: pain) 3 Days Qty: 10 0RF Primary Care Provider: Sen Ventura Referrals: Sen Ventura MD [Primary Care Provider] - As Needed Disposition Disposition: Home, Self Care Discharge Date/Time: 11/08/22 16:13
[2022-11-08 13:30] VITALS: BP 123/84; PULSE 94; RESP 20; O2SAT 97
--- NOTE | 2022-11-08 13:46 | ED.RN ---
PER DR. TAVERAS VERBAL ORDER, OKAY TO GIVE IV METHYLPREDNISOLONE AFTER TALKING TO PT AND PT SPOUSE ABOUT ALLERGY LISTED.
[2022-11-08] MEDS: MethylPREDNISolone 125 MG/2 ML Vial IV (13:49)
[2022-11-08 16:07] VITALS: BP 123/83; BP 123/85; PULSE 74; RESP 16; O2SAT 97
--- NOTE | 2022-11-08 16:09 | ED.RN ---
THIS RN RESPONDED TO CALL LIGHT FROM PT. PT YELLING GET THIS IV OUT OF MY ARM OR I AM GOING TO TAKE IT OUT MYSELF. THIS RN EDUCATED PT THAT PER DR. TAVERAS VERBAL ORDER, PT NEEDED TO BE OBSERVED FOR 4 HOURS AFTER ARRIVING TO ER DUE TO MEDICATIONS GIVEN BY EMS. PT STATES I DONT CARE I AM MISSING MY ANNIVERSARY BEING IN THIS PLACE. THIS RN GOT DR. TAVERAS, RISKS OF LEAVING EXPLAINED TO PT. PER DR. TAVERAS VERBAL ORDER, THIS RN DISCONTINUED IV. PT LEFT PRIOR TO SIGNING AMA FORM OR RECEIVING DISCHARGE PAPERWORK.
== END 2022-11-08 16:13 | disposition home or self-care (01) ==
PROVIDERS: Emergency Provider Emergency Medicine; PCP Family Medicine; Visit Provider Emergency Medicine
DX: T63.441A Toxic effect of venom of bees, accidental (unintentional), initial encounter (principal); G62.9 Polyneuropathy, unspecified; Z79.899 Other long term (current) drug therapy; F17.210 Nicotine dependence, cigarettes, uncomplicated
CPT/HCPCS: 96374; 99285; A4216

== ENCOUNTER → 2024-02-03 | Outpatient (CLI) | payer MEDICAID, SELFPAY ==
[2024-02-03 10:13] LABS: Vitamin B12 792 pg/mL (211-911)
[2024-02-03 11:05] LABS: Magnesium 2.6 mg/dL (1.6-2.6)
[2024-02-09 11:10] LABS: Lamotrigine (Lamictal) Level 2.7 ug/mL (2.0-20.0); Vitamin B1, Thiamine 173.3 nmol/L (66.5-200.0)
== END | disposition home or self-care (01) ==
LOC: MTLAB 08:49
PROVIDERS: PCP Family Medicine; Referring Provider Psychiatry & Neurology Neurology; Visit Provider Psychiatry & Neurology Neurology
DX: G40.909 Epilepsy, unspecified, not intractable, without status epilepticus (principal)
CPT/HCPCS: 36415; 82542; 82607; 82746; 83735; 84425

== ENCOUNTER → 2024-02-19 | Outpatient (CLI) | payer MEDICAID, SELFPAY | END | disposition home or self-care (01) | PROVIDERS: PCP Family Medicine; Referring Provider Psychiatry & Neurology Neurology; Visit Provider Psychiatry & Neurology Neurology | DX: G40.909 Epilepsy, unspecified, not intractable, without status epilepticus (principal) | CPT/HCPCS: 95819 ==